=== PATIENT | male | born 1950 | race Caucasian/White ===

== ENCOUNTER 2020-03-03 00:53 | Inpatient (IN) | payer OTHER, SELFPAY ==
[2020-03-03] VITALS (16 sets, daily range): BP systolic 109–164; BP diastolic 60–101; PULSE 95–140; RESP 18–26; TEMP 36.6–37.2; O2SAT 96–100; BMI 26.6; BMI 26.8
--- NOTE | 2020-03-03 01:05 | ECG_ITS ---
Test Reason : SOB Blood Pressure : / mmHG Vent. Rate : 133 BPM Atrial Rate : 150 BPM P-R Int : 000 ms QRS Dur : 098 ms QT Int : 330 ms P-R-T Axes : 000 024 007 degrees QTc Int : 491 ms Atrial fibrillation with rapid ventricular response PVCs vs aberrant conduction Low voltage QRS Abnormal ECG No previous ECGs available Referred By: Karissa Soto Electronically Signed By:MARTY RINALDI
--- NOTE | 2020-03-03 01:40 | XR_ITS ---
EXAMINATION: CHEST 1 VIEW CLINICAL INFORMATION: Shortness of breath. COMPARISON: None. TECHNIQUE: An AP view of the chest is provided. FINDINGS: The cardiac silhouette is at the upper limits of normal in size. The mediastinal and hilar contours are unremarkable. There are no pneumothoraces. There are small bilateral pleural effusions with bibasilar airspace disease. The osseous structures are unremarkable. XR/XR chest 1V IMPRESSION: Small bilateral pleural effusions with bibasilar airspace disease.
--- NOTE | 2020-03-03 01:40 | ECG_ITS ---
Test Reason : REPEAT Blood Pressure : / mmHG Vent. Rate : 126 BPM Atrial Rate : 138 BPM P-R Int : 000 ms QRS Dur : 096 ms QT Int : 296 ms P-R-T Axes : 000 032 020 degrees QTc Int : 428 ms Atrial fibrillation with rapid ventricular response with premature ventricular or aberrantly conducted complexes Low voltage QRS Nonspecific ST abnormality Abnormal ECG When compared with ECG of 03-MAR-2020 01:05, No significant changes seen Referred By: Karissa Soto Electronically Signed By:JORGE AWAD MD
[2020-03-03 02:03] LABS: Basophils Absolute Auto 0.1 X10*3/uL (0.0-0.2); Basophils Percent Auto 0.5 % (0-2); Eosinophils Absolute Auto 0.1 X10*3/uL (0.0-0.4); Hematocrit 31.7 % (42-52); Hemoglobin 9.6 g/dl (14.0-18.0); Imm Gran Abs Auto 0.02 X10*3/uL (0.00-0.03); Imm Gran Pct Auto 0.2 % (0.0-0.4); Lymphocytes Absolute Auto 1.9 X10*3/uL (1.2-4.9); Lymphocytes Percent Auto 20.5 % (20-40); MANUAL DIFF FLAG NO; Mean Corpuscular HGB Conc 30.3 g/dl (31.0-36.0); Mean Corpuscular Hemoglobin 22.1 pg (27.0-33.0); Mean Corpuscular Volume 72.9 fL (80-98); Monocytes Absolute Auto 1.1 X10*3/uL (0.1-1.2); Neutrophils Absolute Auto 6.1 X10*3/uL (2.0-8.3); Neutrophils Percent Auto 65.8 % (45-73); Platelet Count 177 X10*3/uL (160-400); Red Blood Count 4.35 X10*6/uL (4.60-5.80); Red Cell Distribution Width 15.7 % (11.0-16.0); White Blood Count 9.3 X10*3/uL (4.8-10.8)
--- NOTE | 2020-03-03 02:08 | ED_ITS ---
HPI - SOB/Dyspnea General Chief Complaint: Upper Respiratory Symptoms Stated Complaint: SOB Time Seen by Provider: 03/03/20 00:58 Source: patient Mode of arrival: EMS History of Present Illness HPI Narrative: This is a 69-year-old male who states he has no significant past medical history and presents with 5-6 days worsening dyspnea on exertion, ?racing heart?, as well as orthopnea described as having to use additional pillows in order to sleep comfortably at night and states that his lower extremities have been increasing in size over the same time. He denies being on any medications and denies any associated shortness of breath, chest pain, GI symptoms, or symptoms. He does endorse that he drinks 5 beers daily and states that his last drinks were yesterday evening with dinner. He denies ever having withdrawal symptoms when he has attempted to abstain from drinking alcohol. Related Data Home Medications Medication Instructions Recorded Confirmed No Known Home Meds 03/03/20 03/03/20 Allergies Allergy/AdvReac Type Severity Reaction Status Date / Time Penicillins Allergy Unknown Verified 03/03/20 01:30 Review of Systems Review of Systems: Pertinent positives and negatives as stated in HPI and 10 point review of systems is otherwise negative. [facility] Past Medical History Source: nursing notes reviewed Medical History (Updated 03/03/20 @ 04:59 by Jaimie Sung MD) Hypertension Social History Social History Alcohol intake: current Alcohol intake frequency: 3 or more drinks per day Alcohol type: beer Smoking Status: Never smoker Smoked in Last 30 Days: No Use of substances other than those prescribed or required for medical reasons: No Advance Directives: No Advance Directives Information Provided: No Physical Exam Vital Signs: Vital Signs: Last Vital Signs Temp 98.0 F 03/03/20 03:56 Pulse 105 H 03/03/20 06:00 Resp 22 H 03/03/20 06:00 BP 144/85 H 03/03/20 06:00 Pulse Ox 98 03/03/20 06:00 Body Mass Index 26.6 VITAL SIGNS: Reviewed. GENERAL: Well developed, well nourished, mild distress. HEAD: Normocephalic/atraumatic, EYES: PERRLA, EOMI intact without pain, no nystagmus/pallor/icterus noted EARS: Ext canals without abnormality, TMs non-bulging and non-erythematous NOSE: Nares patent bilateral OROPHARYNX: no oral lesions noted, posterior pharynx clear and non-erythematous without noted tonsillar enlargement/erythema/exudates NECK: Supple, no adenopathy LUNGS: Decrease breath sounds bilaterally with mild rales noted but no wheezing or tachypnea appreciated.SpO2<99> CARDIOVASCULAR: Irregular rate and rhythm without noted murmurs, no JVD but 1- 2+ pitting lower extremity edema bilateral. ABDOMEN: Obese, Soft, non-tender, non-distended with bowel sounds. No rigidity. No guarding. No palpable masses or hernias noted MUSCULOSKELETAL: No tenderness, deformities, or effusions noted on gross inspection. EXTREMITIES: No cyanosis, clubbing. SKIN: Inspection of the skin reveals no rashes, ulcerations, jaundice, pallor, or petechiae. NEUROLOGIC: Alert and oriented x 4. Strength and sensation to light touch were grossly intact x 4. Course Course Course Narrative: This is a 69-year-old male with history and clinical presentation consistent with suspected new onset atrial fibrillation with CHF of unknown etiology but possibly secondary to alcohol use. Chads Vasc equals 2 -labs, chest x-ray, EKG, Lopressor, Lasix, admission Review of all investigations is most consistent with atrial fibrillation, CHF who, and D-dimer is inconsistent with lower extremity edema being secondary to DVT. Patient responded well to Lasix and Lopressor with heart rate decreasing to 100s. This case was discussed with the inpatient hospitalist who is agreeable for admission and was informed that patient's chads Vasc score was 2. MDM - SOB/Dyspnea Lab Data Result diagrams: 03/03/20 01:54 03/03/20 01:55 Labs: Lab Results 03/03/20 03/03/20 03/03/20 Range/Units 01:54 01:54 01:54 WBC 9.3 (4.8-10.8) X10*3/uL RBC 4.35 L (4.60-5.80) X10*6/uL Hgb 9.6 L (14.0-18.0) g/dl Hct 31.7 L (42-52) % MCV 72.9 L (80-98) fL MCH 22.1 L (27.0-33.0) pg MCHC 30.3 L (31.0-36.0) g/dl RDW 15.7 (11.0-16.0) % Plt Count 177 (160-400) X10*3/uL MPV 10.0 (9.4-12.4) fL Immature Gran % (Auto) 0.2 (0.0-0.4) % Neut % (Auto) 65.8 (45-73) % Lymph % (Auto) 20.5 (20-40) % [place] % (Auto) 12.0 H (2-11) % Eos % (Auto) 1.0 (0-4) % Baso % (Auto) 0.5 (0-2) % Lymph # (Auto) 1.9 (1.2-4.9) X10*3/uL [place] # (Auto) 1.1 (0.1-1.2) X10*3/uL Eos # (Auto) 0.1 (0.0-0.4) X10*3/uL Baso # (Auto) 0.1 (0.0-0.2) X10*3/uL Abs Immat Gran (auto) 0.02 (0.00-0.03) X10*3/uL Absolute Neuts (auto) 6.1 (2.0-8.3) X10*3/uL Absolute Nucleated RBC 0.000 (0.0-0.012) X10*3/uL Nucleated RBC % (auto) 0.0 (0.0-0.2) /100WBC D-Dimer NG/ML Sodium (135-145) mmol/L Potassium (3.3-5.1) mmol/l Chloride (96-108) mmol/L Carbon Dioxide (22-29) mmol/L Anion Gap (12-20) BUN (9-16) mg/dL Creatinine (0.5-1.4) mg/dL Estim Creat Clear Calc Estimated GFR Random Glucose (60-115) mg/dL Calcium (8.4-10.2) mg/dL Total Bilirubin (0.0-1.0) mg/dL AST (5-37) U/L ALT (0-40) U/L Alkaline Phosphatase (39-117) U/L Troponin I High Sens 25.6 (<3.5-35.0) ng/L B-Natriuretic Peptide 972 H (<100) pg/mL Total Protein (6.5-8.0) g/dL Albumin (3.5-5.0) g/dL Lipase (8-78) U/L Urine Color Urine Appearance Urine pH (5.0-8.0) Ur Specific [place] (1.005-1.025) Urine Protein (NEG-TRACE) MG/DL Urine Glucose (UA) (NEG) MG/DL Urine Ketones (NEG) MG/DL Urine Blood (NEG) Urine Nitrite (NEG) Ur Leukocyte Esterase (NEG) Urine Opiates Screen (Not Detect) Ur Barbiturates Screen (Not Detect) Ur Phencyclidine Scrn (Not Detect) Ur Amphetamines Screen (Not Detect) U Benzodiazepines Scrn (Not Detect) Urine Cocaine Screen (Not Detect) U Marijuana (THC) Screen (Not Detect) Ethyl Alcohol < 10 mg/dL Coronavirus (PCR) (Negative) Influenza Type A (PCR) (Negative) Influenza Type B (PCR) (Negative) RSV RNA Qual (PCR) (Negative) 03/03/20 03/03/20 03/03/20 Range/Units 01:55 03:23 03:28 WBC (4.8-10.8) X10*3/uL RBC (4.60-5.80) X10*6/uL Hgb (14.0-18.0) g/dl Hct (42-52) % MCV (80-98) fL MCH (27.0-33.0) pg MCHC (31.0-36.0) g/dl RDW (11.0-16.0) % Plt Count (160-400) X10*3/uL MPV (9.4-12.4) fL Immature Gran % (Auto) (0.0-0.4) % Neut % (Auto) (45-73) % Lymph % (Auto) (20-40) % [place] % (Auto) (2-11) % Eos % (Auto) (0-4) % Baso % (Auto) (0-2) % Lymph # (Auto) (1.2-4.9) X10*3/uL [place] # (Auto) (0.1-1.2) X10*3/uL Eos # (Auto) (0.0-0.4) X10*3/uL Baso # (Auto) (0.0-0.2) X10*3/uL Abs Immat Gran (auto) (0.00-0.03) X10*3/uL Absolute Neuts (auto) (2.0-8.3) X10*3/uL Absolute Nucleated RBC (0.0-0.012) X10*3/uL Nucleated RBC % (auto) (0.0-0.2) /100WBC D-Dimer 284 NG/ML Sodium 134 L (135-145) mmol/L Potassium 4.3 (3.3-5.1) mmol/l Chloride 99 (96-108) mmol/L Carbon Dioxide 22 (22-29) mmol/L Anion Gap 17 (12-20) BUN 18 H (9-16) mg/dL Creatinine 1.09 (0.5-1.4) mg/dL Estim Creat Clear Calc 61.8 Estimated GFR > 60 Random Glucose 90 (60-115) mg/dL Calcium 8.5 (8.4-10.2) mg/dL Total Bilirubin 1.1 H (0.0-1.0) mg/dL AST 29 (5-37) U/L ALT 38 (0-40) U/L Alkaline Phosphatase 61 (39-117) U/L Troponin I High Sens (<3.5-35.0) ng/L B-Natriuretic Peptide (<100) pg/mL Total Protein 7.4 (6.5-8.0) g/dL Albumin 3.9 (3.5-5.0) g/dL Lipase 31 (8-78) U/L Urine Color Urine Appearance Urine pH (5.0-8.0) Ur Specific [place] (1.005-1.025) Urine Protein (NEG-TRACE) MG/DL Urine Glucose (UA) (NEG) MG/DL Urine Ketones (NEG) MG/DL Urine Blood (NEG) Urine Nitrite (NEG) Ur Leukocyte Esterase (NEG) Urine Opiates Screen (Not Detect) Ur Barbiturates Screen (Not Detect) Ur Phencyclidine Scrn (Not Detect) Ur Amphetamines Screen (Not Detect) U Benzodiazepines Scrn (Not Detect) Urine Cocaine Screen (Not Detect) U Marijuana (THC) Screen (Not Detect) Ethyl Alcohol mg/dL Coronavirus (PCR) NEGATIVE (Negative) Influenza Type A (PCR) NEGATIVE (Negative) Influenza Type B (PCR) NEGATIVE (Negative) RSV RNA Qual (PCR) NEGATIVE (Negative) 03/03/20 03/03/20 03/03/20 Range/Units 03:59 03:59 06:37 WBC (4.8-10.8) X10*3/uL RBC (4.60-5.80) X10*6/uL Hgb (14.0-18.0) g/dl Hct (42-52) % MCV (80-98) fL MCH (27.0-33.0) pg MCHC (31.0-36.0) g/dl RDW (11.0-16.0) % Plt Count (160-400) X10*3/uL MPV (9.4-12.4) fL Immature Gran % (Auto) (0.0-0.4) % Neut % (Auto) (45-73) % Lymph % (Auto) (20-40) % [place] % (Auto) (2-11) % Eos % (Auto) (0-4) % Baso % (Auto) (0-2) % Lymph # (Auto) (1.2-4.9) X10*3/uL [place] # (Auto) (0.1-1.2) X10*3/uL Eos # (Auto) (0.0-0.4) X10*3/uL Baso # (Auto) (0.0-0.2) X10*3/uL Abs Immat Gran (auto) (0.00-0.03) X10*3/uL Absolute Neuts (auto) (2.0-8.3) X10*3/uL Absolute Nucleated RBC (0.0-0.012) X10*3/uL Nucleated RBC % (auto) (0.0-0.2) /100WBC D-Dimer NG/ML Sodium (135-145) mmol/L Potassium (3.3-5.1) mmol/l Chloride (96-108) mmol/L Carbon Dioxide (22-29) mmol/L Anion Gap (12-20) BUN (9-16) mg/dL Creatinine (0.5-1.4) mg/dL Estim Creat Clear Calc Estimated GFR Random Glucose (60-115) mg/dL Calcium (8.4-10.2) mg/dL Total Bilirubin (0.0-1.0) mg/dL AST (5-37) U/L ALT (0-40) U/L Alkaline Phosphatase (39-117) U/L Troponin I High Sens 21.8 (<3.5-35.0) ng/L B-Natriuretic Peptide (<100) pg/mL Total Protein (6.5-8.0) g/dL Albumin (3.5-5.0) g/dL Lipase (8-78) U/L Urine Color YELLOW Urine Appearance CLEAR Urine pH 6.0 (5.0-8.0) Ur Specific [place] 1.020 (1.005-1.025) Urine Protein NEG (NEG-TRACE) MG/DL Urine Glucose (UA) NEG (NEG) MG/DL Urine Ketones NEG (NEG) MG/DL Urine Blood NEG (NEG) Urine Nitrite NEG (NEG) Ur Leukocyte Esterase NEG (NEG) Urine Opiates Screen Not Detected (Not Detect) Ur Barbiturates Screen Not Detected (Not Detect) Ur Phencyclidine Scrn Not Detected (Not Detect) Ur Amphetamines Screen Not Detected (Not Detect) U Benzodiazepines Scrn Not Detected (Not Detect) Urine Cocaine Screen Not Detected (Not Detect) U Marijuana (THC) Screen Not Detected (Not Detect) Ethyl Alcohol mg/dL Coronavirus (PCR) (Negative) Influenza Type A (PCR) (Negative) Influenza Type B (PCR) (Negative) RSV RNA Qual (PCR) (Negative) ECG Data Attestation: I personally reviewed and interpreted this ECG as follows: Prior ECG tracings: not available for review Interpretation: Atrial fibrillation, HR-126, no evidence of acute ischemia, QRS/QTC are within normal limits. Critical Care Time Critical Care Time Critical Care Time: Yes Total Critical Care Time: 30 Attestation: I personally attest to this time spent taking care of the patient. Discharge Plan Discharge Clinical Impression: Pleural effusion, bilateral Atrial fibrillation Qualifiers: Atrial fibrillation type: unspecified Qualified Code(s): I48.91 - Unspecified atrial fibrillation CHF (congestive heart failure) Qualifiers: Heart failure type: other Qualified Code(s): I50.9 - Heart failure, unspecified Patient Disposition: Admitted As Inpatient
[2020-03-03 02:22] LABS: Ethanol < 10 mg/dL
[2020-03-03 02:26] LABS: Alanine Aminotransferase 38 U/L (0-40); Albumin Level 3.9 g/dL (3.5-5.0); Alkaline Phosphatase 61 U/L (39-117); Anion Gap 17 (12-20); Aspartate Amino Transferase 29 U/L (5-37); Bilirubin Total 1.1 mg/dL (0.0-1.0); Blood Urea Nitrogen 18 mg/dL (9-16); Calcium 8.5 mg/dL (8.4-10.2); Carbon Dioxide 22 mmol/L (22-29); Chloride 99 mmol/L (96-108); Creatinine Clr Calc Pharmacy 61.8; Estimated Glomerular Filt Rate > 60; Glucose Random 90 mg/dL (60-115); Lipase 31 U/L (8-78); Potassium 4.3 mmol/l (3.3-5.1); Sodium 134 mmol/L (135-145); Total Protein 7.4 g/dL (6.5-8.0)
[2020-03-03 02:29] LABS: Troponin-I High Sensitivity 25.6 ng/L (<3.5-35.0)
[2020-03-03 02:50] LABS: B Type Natriuretic Peptide 972 pg/mL (<100)
[2020-03-03] MEDS: Furosemide 40 MG/4 ML VIAL IVPUSH ×2 (03:11→15:41)
[2020-03-03 03:43] LABS: D Dimer 284 NG/ML
[2020-03-03] MEDS: Metoprolol Tartrate 5 MG/5 ML VIAL IVPUSH (04:00)
[2020-03-03 04:05] LABS: Glucose Urine UA NEG (NEG); Leukocyte Esterase Urine NEG (NEG); Nitrite Urine NEG (NEG); Urine Blood NEG (NEG); Urine Ketones NEG (NEG); Urine Protein NEG (NEG-TRACE)
[2020-03-03 04:06] LABS: Appearance Urine CLEAR; Color Urine YELLOW; UACC Culture Trigger NO
[2020-03-03 04:26] LABS: Amphetamine Screen Urine Not Detected (Not Detect); Barbiturates, Urine Not Detected (Not Detect); Benzodiazepines Screen Urine Not Detected (Not Detect); Cannabinoid Screen Urine Not Detected (Not Detect); Cocaine Screen Urine Not Detected (Not Detect); Opiate Screen Urine Not Detected (Not Detect); Phencyclidine Screen Urine Not Detected (Not Detect)
[2020-03-03 04:27] LABS: Influenza A PCR NEGATIVE (Negative); Influenza B PCR NEGATIVE (Negative); Resp Syncy Virus RNA Qual PCR NEGATIVE (Negative); SARS COV2 PCR INHOUSE NEGATIVE (Negative)
--- NOTE | 2020-03-03 04:51 | P.HPHOSP_ITS ---
History of Present Illness Date of Service: 03/03/20 Chief Complaint: Shortness of breath This is a 69-year-old male with history of hypertension who presents to the hospital complaining new as onset shortness of breath. Patient reports that his symptoms started about 1 week ago, associated with orthopnea, PND, lower extremity edema. He is also having palpitations. He has no chest pain, he has not noticed any cough, sputum production, no fever or chills, no abdominal pain nausea or diarrhea. No urinary symptoms. On arrival to the ED hemodynamically stable with a heart rate of 140 in AFib, blood pressure of 164/101, and respiratory rate of 26 Lab significant for WBC count 9.3, hemoglobin 9.6, hematocrit of 31.7, sodium 134, BUN of 18, creatinine of 1.09, BNP of 972. UA negative. UDS negative, coronavirus negative. Chest x-ray shows bilateral effusion with bibasilar airspace disease Past medical history: Hypertension Surgical history: Denies Family history: Denies Social history: Lives with his mom, ambulates independently, denies tobacco, drinks 4-5 beers daily, denies any history of withdrawal, no history of drug use Review of Systems Review of Systems: Yes all other systems are reviewed and are negative [facility] History Hypertension Social History Alcohol intake: current Alcohol intake frequency: 3 or more drinks per day Alcohol type: beer Smoking Status: Never smoker Smoked in Last 30 Days: No Use of substances other than those prescribed or required for medical reasons: No Advance Directives: No Advance Directives Information Provided: No Meds Allergies Allergy/AdvReac Type Severity Reaction Status Date / Time Penicillins Allergy Unknown Verified 03/03/20 01:30 Home Medications Medication Instructions Recorded Confirmed Type No Known Home Meds 03/03/20 03/03/20 History Physical Exam Vital Signs and Narrative: Vital Signs: Last Vital Signs Temp 98.0 F 03/03/20 03:56 Pulse 125 H 03/03/20 03:56 Resp 20 03/03/20 03:56 BP 156/95 H 03/03/20 03:56 Pulse Ox 98 03/03/20 03:56 Body Mass Index 26.6 Const: General: cooperative and no acute distress Orientation/consciousness: patient oriented x3 Eyes: General: appearance normal, both eyes and all related structures Resp: Effort & Inspection: normal respiratory effort and able to speak in complete sentences Cardio: Rate: regular rate Rhythm: regular rhythm GI: Palpation (GI): Soft to palpation Auscultation: normal bowel sounds Skin: General skin exam: no rashes or lesions noted Neuro: General: patient oriented x3 Cognition (Neuro): normal cognition Extrem: Other: 2+ bilaterally General: Yes normal to inspection Results Labs CBC and Chem 7: 03/03/20 01:54 03/03/20 01:55 Labs: Laboratory Results - last 24 hr 03/03/20 03/03/20 03/03/20 01:54 01:54 01:54 MCV 72.9 L MCH 22.1 L MCHC 30.3 L RDW 15.7 Plt Count 177 MPV 10.0 Immature Gran % (Auto) 0.2 Neut % (Auto) 65.8 Lymph % (Auto) 20.5 [place] % (Auto) 12.0 H Eos % (Auto) 1.0 Baso % (Auto) 0.5 Lymph # (Auto) 1.9 [place] # (Auto) 1.1 Eos # (Auto) 0.1 Baso # (Auto) 0.1 Abs Immat Gran (auto) 0.02 Absolute Neuts (auto) 6.1 Absolute Nucleated RBC 0.000 Nucleated RBC % (auto) 0.0 D-Dimer Anion Gap Estim Creat Clear Calc Estimated GFR Random Glucose Calcium Total Bilirubin AST ALT Alkaline Phosphatase Troponin I High Sens 25.6 B-Natriuretic Peptide 972 H Total Protein Albumin Lipase Urine Color Urine Appearance Urine pH Ur Specific [place] Urine Protein Urine Glucose (UA) Urine Ketones Urine Blood Urine Nitrite Ur Leukocyte Esterase Urine Opiates Screen Ur Barbiturates Screen Ur Phencyclidine Scrn Ur Amphetamines Screen U Benzodiazepines Scrn Urine Cocaine Screen U Marijuana (THC) Screen Ethyl Alcohol < 10 Coronavirus (PCR) Influenza Type A (PCR) Influenza Type B (PCR) RSV RNA Qual (PCR) 03/03/20 03/03/20 03/03/20 01:55 03:23 03:28 MCV MCH MCHC RDW Plt Count MPV Immature Gran % (Auto) Neut % (Auto) Lymph % (Auto) [place] % (Auto) Eos % (Auto) Baso % (Auto) Lymph # (Auto) [place] # (Auto) Eos # (Auto) Baso # (Auto) Abs Immat Gran (auto) Absolute Neuts (auto) Absolute Nucleated RBC Nucleated RBC % (auto) D-Dimer 284 Anion Gap 17 Estim Creat Clear Calc 61.8 Estimated GFR > 60 Random Glucose 90 Calcium 8.5 Total Bilirubin 1.1 H AST 29 ALT 38 Alkaline Phosphatase 61 Troponin I High Sens B-Natriuretic Peptide Total Protein 7.4 Albumin 3.9 Lipase 31 Urine Color Urine Appearance Urine pH Ur Specific [place] Urine Protein Urine Glucose (UA) Urine Ketones Urine Blood Urine Nitrite Ur Leukocyte Esterase Urine Opiates Screen Ur Barbiturates Screen Ur Phencyclidine Scrn Ur Amphetamines Screen U Benzodiazepines Scrn Urine Cocaine Screen U Marijuana (THC) Screen Ethyl Alcohol Coronavirus (PCR) NEGATIVE Influenza Type A (PCR) NEGATIVE Influenza Type B (PCR) NEGATIVE RSV RNA Qual (PCR) NEGATIVE 03/03/20 03/03/20 03:59 03:59 MCV MCH MCHC RDW Plt Count MPV Immature Gran % (Auto) Neut % (Auto) Lymph % (Auto) [place] % (Auto) Eos % (Auto) Baso % (Auto) Lymph # (Auto) [place] # (Auto) Eos # (Auto) Baso # (Auto) Abs Immat Gran (auto) Absolute Neuts (auto) Absolute Nucleated RBC Nucleated RBC % (auto) D-Dimer Anion Gap Estim Creat Clear Calc Estimated GFR Random Glucose Calcium Total Bilirubin AST ALT Alkaline Phosphatase Troponin I High Sens B-Natriuretic Peptide Total Protein Albumin Lipase Urine Color YELLOW Urine Appearance CLEAR Urine pH 6.0 Ur Specific [place] 1.020 Urine Protein NEG Urine Glucose (UA) NEG Urine Ketones NEG Urine Blood NEG Urine Nitrite NEG Ur Leukocyte Esterase NEG Urine Opiates Screen Not Detected Ur Barbiturates Screen Not Detected Ur Phencyclidine Scrn Not Detected Ur Amphetamines Screen Not Detected U Benzodiazepines Scrn Not Detected Urine Cocaine Screen Not Detected U Marijuana (THC) Screen Not Detected Ethyl Alcohol Coronavirus (PCR) Influenza Type A (PCR) Influenza Type B (PCR) RSV RNA Qual (PCR) ECG Interpretation: AFib with RVR, nonspecific ST T wave changes Imaging Radiologist's Impressions: Impressions Chest X-Ray 03/03/20 01:40 IMPRESSION: Small bilateral pleural effusions with bibasilar airspace disease. Assessment and Plan (1) New onset of congestive heart failure: Status: Acute (2) Atrial fibrillation: Qualifiers: Atrial fibrillation type: unspecified Qualified Code(s): I48.91 - Unspecified atrial fibrillation Status: Acute (3) Hypertension: Status: Acute (4) Alcohol use disorder: Status: Acute This is a 69-year-old male with past medical history of hypertension who p resents to the hospital with new onset AFib as well as CHF # new onset CHF - possibly secondary to alcohol use versus ischemic - patient denies history of chest pain, has history of hypertension with no other significant risk factors - has lower extremity edema, orthopnea PND Plan: - will start him on Lasix 40 IV b.i.d. - monitor I&O, low-sodium diet, daily weight - echocardiogram - TSH, and consult Cardiology # new onset AFib with RVR - possibly secondary to new onset CHF, has no evidence of infection - has chads Vasc of 2 - discuss patient's risk of stroke and he is interested in anticoagulation Plan: - start him on metoprolol 12.5 b.i.d. - given his Tee Vasc score of 2 will start him on Lovenox and switch to p.o. meds upon discharge - TSH and troponin pending - echocardiogram # alcohol abuse - drinks 4-5 beers a day, denies any history of withdrawals - will place on CIWA as well as phenobarb protocol DVT prophylaxis: Lovenox
[2020-03-03] MEDS: PHENobarbitaL sodium 130 MG/ML VIAL 219 MG IM (06:02)
[2020-03-03] MEDS: Enoxaparin Sodium 60 MG/0.6 ML SYRINGE 80 MG SUBCUT ×2 (06:13→17:47)
[2020-03-03 07:23] LABS: Troponin-I High Sensitivity 21.8 ng/L (<3.5-35.0)
[2020-03-03] MEDS: PHENobarbitaL sodium 130 MG/ML VIAL 164 MG IM ×2 (08:40→12:01)
[2020-03-03] MEDS: Metoprolol Tartrate 12.5 MG HALFTAB PO (08:41)
--- NOTE | 2020-03-03 09:55 | CA_ITS ---
Transthoracic Echocardiogram Patient (Last, First, Middle): Ambrocio Askew, Gender: Male Date of : 1950 Age: 69 Procedure Date: 03/03/2020 Procedure Type: Transthoracic Echocardiogram Location: ER Height: 172.72 cm Weight: 79.04 kg BSA: 1.93 m2 Heart Rate: bpm BP: 129 / 89 mmHg Motor Vehicle Examiner: DREA Foley MD: Francisco Corral MD Air Quality Specialist: Francisco Corral MD Symptoms: CHF Study Quality: Fair ECG Rhythm: Atrial Fibrillation Conclusions: - 1. Severe LV systolic dysfunction with LVEF of 20-25% 2. Severely dilated left atrium 3. Moderate to severe eccentric mitral regurgitation 4. [id number] elevation of right ventricular systolic pressure with moderately elevated right atrial pressures 5. No pericardial effusion Findings Left Ventricle Normal left ventricular cavity size. There is normal left ventricular wall thickness. The left ventricular systolic function is severely decreased. The visually estimated ejection fraction is between 20-25%. There is severe global hypokinesis. Diastolic function is indeterminate on the basis of available data. Right Ventricle Mildly increased right ventricular cavity size. There is mildly decreased right ventricular systolic function. Atria The left atrium is severely dilated. There is no evidence of interatrial shunt. The right atrium is moderately dilated. Aortic Valve Normal aortic valve structure and function. There is no aortic valve stenosis. There is no aortic valve regurgitation. Mitral Valve There is moderate anterior and posterior mitral leaflet thickening. There is moderate to severe mitral valve regurgitation. The mitral regurgitation jet is directed anteriorly. There is no mitral valve stenosis. Pulmonic Valve The pulmonic valve is likely normal. There is mild pulmonic valve regurgitation. Tricuspid Valve Normal tricuspid valve structure. There is mild to moderate tricuspid valve regurgitation. Moderately elevated right atrial pressure. Mild to moderate pulmonary hypertension is present. Great Vessels All visible segments of the aorta are normal in size. The pulmonary artery was not well visualized. Venous The inferior vena cava is mildly dilated and collapses less than 50% with inspiration. Pericardium/Pleural There is no evidence of pericardial effusion. Prior Study Comparison No prior study available for comparison. Measurements 2D Linear Measurements IVSd: 1.05 0.6-0.9/0.6-1.0 cm LVIDd: 4.69 3.9-5.3/4.2-5.9 cm LVIDd Index: 2.43 2.4-3.2/2.2-3.1 cm/m2 LVIDs: 4.38 2.0-3.6 cm LVPWd: 1.07 0.7-1.1 cm Ao Root: 3.00 2.1-3.5 cm LA Diam: 4.60 2.7-3.8/3.0-4.0 cm LAIDs Index: 2.38 1.5-2.3 cm/m2 LV Mass: 221.17 67-162/88-224 g LV Mass Index: 114.59 43-95/49-115 g/m2 LVOT Diam: 2.10 3.0+(-)1.3 cm 2D Systolic Function EF 4C: 29.10 >55% EF 2C: 32.60 >55% Aortic Valve AoV Pk Willie: 0.67 AoV Mn Willie: 0.44 AoV VTI: 0.09 AoV Pk Grad: 2.00 Aov Mn Grad: 1.00 CED Cont.VTI: 3.95 LVOT LVOT Pk Willie: 0.58 LVOT Mn Willie: 0.36 LVOT VTI: 0.10 LVOT Pk Grad: 1.00 LVOT Mn Grad: 1.00 LVOT Diam: 2.10 LVOT Area: 3.46 Tricuspid Valve TR Pk Willie: 2.94 TR Pk Grad: 35.00 RA Press: 8.00 RVSP: 43.00 Great Vessels Aorta Ao Root-2D: 3.00 2.0-3.7 cm Ao Asc: 3.20 2.1-3.4 cm Updated in Other Vendor System with Status of Final Francisco Corral MD electronically signed on 03/04/2020 12:24:58 PM with status of Final
--- NOTE | 2020-03-03 11:23 | PM.CNCAR ---
History of Present Illness History of Present Illness Date of Service: 03/03/20 Requesting physician: Ladarius Gutiérrez Consult reason: atrial fibrillation and congestive heart failure Chief complaint: SOB Narrative: Thank you for inviting us on consult on Ambrocio.. He is a 69-year-old man was not seen a doctor in the last 5 years as he was feeling well. About 7 days ago he started noticing rapid and irregular heartbeat with palpitations. He also about at the same time started noticing exertional shortness of breath which kept getting worse. Last night he shortness of get caught significantly worse and he decided to come to the emergency room. Continues to have palpitations. He also had notice some orthopnea and had a leg edema. He came to the emergency room and was noted to be in atrial fibrillation with rapid ventricular response and congestive heart failure. Heart rate was in the 150 range with markedly elevated blood pressure. He denies any prior history of hypertension. However he as mentioned he has not seen a MD in many years. He says he drinks about 5-6 beers a day. He denies any smoking. He denied any chest pain. Denies any lightheadedness, loss of consciousness. No neurologic events. He denies any recent systemic symptoms of bleeding issues. He says prior to the symptom onset he is pretty functional and active. Review of Systems Constitutional: Constitutional: Denies body ache(s), Denies chills, Denies fatigue, Denies fever(s) and Denies frequent falls Eyes: Eyes: Reports no additional eye complaints ENT: Reports system reviewed and no additional complaints, except as documented Cardiovascular: Cardiovascular: Denies chest pain, Reports irregular heart rhythm, Reports leg edema, Reports palpitations, Reports dyspnea on exertion and Reports orthopnea Respiratory: Respiratory: Denies cough and Reports dyspnea on exertion Gastrointestinal: Gastrointestinal: Reports no additional gastrointestinal complaints Genitourinary: Genitourinary: Reports no additional male genitourinary complaints Musculoskeletal: Musculoskeletal: Reports no additional musculoskeletal complaints Neurologic: Reports system reviewed and no additional complaints, except as documented and Denies frequent falls Psychiatric: Psychiatric: Reports no additional psychiatric complaints Endocrine: Endocrine: Reports no additional endocrine complaints, Denies fatigue and Reports palpitations PMF Past Medical History Medical History Hypertension Social History Social History Alcohol intake: current Alcohol intake frequency: 3 or more drinks per day Alcohol type: beer Smoking Status: Never smoker Smoked in Last 30 Days: No Use of substances other than those prescribed or required for medical reasons: No Advance Directives: No Advance Directives Information Provided: No Meds Allergies Allergy/AdvReac Type Severity Reaction Status Date / Time Penicillins Allergy Unknown Verified 03/03/20 01:30 Home Medications Medication Instructions Recorded Confirmed Type No Known Home Meds 03/03/20 03/03/20 History Physical Exam Vital Signs: Vital Signs: Last Vital Signs Temp 98.0 F 03/03/20 03:56 Pulse 120 H 03/03/20 08:41 Resp 22 H 03/03/20 06:00 BP 123/86 03/03/20 08:41 Pulse Ox 98 03/03/20 06:00 Body Mass Index 26.6 Const: General: cooperative, comfortable, alert, awake and acute distress mild and respiratory Nutritional Appearance: overweight Orientation/consciousness: patient oriented x3 Limitations: other limitations (Currently in a stretcher) HENMT: Head: Yes normocephalic Eyes: General: appearance normal, both eyes and all related structures Neck: Neck: Yes trachea midline, Yes supple and Yes JVD Chest: Chest palpation & inspection: normal inspection of the chest Resp: Effort & Inspection: normal respiratory effort Auscultation: no crackles, no rales and diminished lung sounds Cardio: Jugular venous distension: JVD Palpation: abnormal PMI displaced PMI Rate: tachycardic Rhythm: abnormal rhythm irregularly irregular Heart sounds: S1 normal heart sound present and S2 normal heart sound present GI: Auscultation: normal bowel sounds Skin: General skin exam: no rashes or lesions noted Neuro: General: patient oriented x3 Extrem: General: No clubbing, No cyanosis and Yes edema Psych: Appearance: grossly normal Results Labs and Meds Result diagrams: 03/03/20 01:54 03/03/20 01:55 Lab results: Laboratory Results - last 24 hr 03/03/20 03/03/20 03/03/20 01:54 01:54 01:54 WBC 9.3 RBC 4.35 L Hgb 9.6 L Hct 31.7 L MCV 72.9 L MCH 22.1 L MCHC 30.3 L RDW 15.7 Plt Count 177 MPV 10.0 Immature Gran % (Auto) 0.2 Neut % (Auto) 65.8 Lymph % (Auto) 20.5 [place] % (Auto) 12.0 H Eos % (Auto) 1.0 Baso % (Auto) 0.5 Lymph # (Auto) 1.9 [place] # (Auto) 1.1 Eos # (Auto) 0.1 Baso # (Auto) 0.1 Abs Immat Gran (auto) 0.02 Absolute Neuts (auto) 6.1 Absolute Nucleated RBC 0.000 Nucleated RBC % (auto) 0.0 D-Dimer Sodium Potassium Chloride Carbon Dioxide Anion Gap BUN Creatinine Estim Creat Clear Calc Estimated GFR Random Glucose Calcium Total Bilirubin AST ALT Alkaline Phosphatase Troponin I High Sens 25.6 B-Natriuretic Peptide 972 H Total Protein Albumin Lipase Urine Color Urine Appearance Urine pH Ur Specific [place] Urine Protein Urine Glucose (UA) Urine Ketones Urine Blood Urine Nitrite Ur Leukocyte Esterase Urine Opiates Screen Ur Barbiturates Screen Ur Phencyclidine Scrn Ur Amphetamines Screen U Benzodiazepines Scrn Urine Cocaine Screen U Marijuana (THC) Screen Ethyl Alcohol < 10 Coronavirus (PCR) Influenza Type A (PCR) Influenza Type B (PCR) RSV RNA Qual (PCR) 03/03/20 03/03/20 03/03/20 01:55 03:23 03:28 WBC RBC Hgb Hct MCV MCH MCHC RDW Plt Count MPV Immature Gran % (Auto) Neut % (Auto) Lymph % (Auto) [place] % (Auto) Eos % (Auto) Baso % (Auto) Lymph # (Auto) [place] # (Auto) Eos # (Auto) Baso # (Auto) Abs Immat Gran (auto) Absolute Neuts (auto) Absolute Nucleated RBC Nucleated RBC % (auto) D-Dimer 284 Sodium 134 L Potassium 4.3 Chloride 99 Carbon Dioxide 22 Anion Gap 17 BUN 18 H Creatinine 1.09 Estim Creat Clear Calc 61.8 Estimated GFR > 60 Random Glucose 90 Calcium 8.5 Total Bilirubin 1.1 H AST 29 ALT 38 Alkaline Phosphatase 61 Troponin I High Sens B-Natriuretic Peptide Total Protein 7.4 Albumin 3.9 Lipase 31 Urine Color Urine Appearance Urine pH Ur Specific [place] Urine Protein Urine Glucose (UA) Urine Ketones Urine Blood Urine Nitrite Ur Leukocyte Esterase Urine Opiates Screen Ur Barbiturates Screen Ur Phencyclidine Scrn Ur Amphetamines Screen U Benzodiazepines Scrn Urine Cocaine Screen U Marijuana (THC) Screen Ethyl Alcohol Coronavirus (PCR) NEGATIVE Influenza Type A (PCR) NEGATIVE Influenza Type B (PCR) NEGATIVE RSV RNA Qual (PCR) NEGATIVE 03/03/20 03/03/20 03/03/20 03:59 03:59 06:37 WBC RBC Hgb Hct MCV MCH MCHC RDW Plt Count MPV Immature Gran % (Auto) Neut % (Auto) Lymph % (Auto) [place] % (Auto) Eos % (Auto) Baso % (Auto) Lymph # (Auto) [place] # (Auto) Eos # (Auto) Baso # (Auto) Abs Immat Gran (auto) Absolute Neuts (auto) Absolute Nucleated RBC Nucleated RBC % (auto) D-Dimer Sodium Potassium Chloride Carbon Dioxide Anion Gap BUN Creatinine Estim Creat Clear Calc Estimated GFR Random Glucose Calcium Total Bilirubin AST ALT Alkaline Phosphatase Troponin I High Sens 21.8 B-Natriuretic Peptide Total Protein Albumin Lipase Urine Color YELLOW Urine Appearance CLEAR Urine pH 6.0 Ur Specific [place] 1.020 Urine Protein NEG Urine Glucose (UA) NEG Urine Ketones NEG Urine Blood NEG Urine Nitrite NEG Ur Leukocyte Esterase NEG Urine Opiates Screen Not Detected Ur Barbiturates Screen Not Detected Ur Phencyclidine Scrn Not Detected Ur Amphetamines Screen Not Detected U Benzodiazepines Scrn Not Detected Urine Cocaine Screen Not Detected U Marijuana (THC) Screen Not Detected Ethyl Alcohol Coronavirus (PCR) Influenza Type A (PCR) Influenza Type B (PCR) RSV RNA Qual (PCR) CXR - suggestive of CHF EKG consistent with atrial fibrillation with PVCs with low-voltage card nonspecific ST T wave changes. BNP is 972 Assessment and Plan (1) CHF (congestive heart failure): Qualifiers: Heart failure type: other Qualified Code(s): I50.9 - Heart failure, unspecified Status: Acute New onset congestive heart failure with preliminary echo at bedside showing severely reduced LV systolic function. Possibilities include tachycardia mediated cardiomyopathy versus alcoholic cardiomyopathy. Will continue with diuresis. Better rate control needs to be pursued. Will digitalize, see below. Will also increase metoprolol. Continue Lasix IV diuresis. CHF education needs to be provided. Strict intake and output chart needs to be pursued. Daily weight monitoring needs to be pursued. Continue to trend BMP and BNP. Complete echo will be reviewed once completed. Heart failure management was discussed with him in details. Complete alcohol cessation was advised to him. (2) Atrial fibrillation: Qualifiers: Atrial fibrillation type: unspecified Qualified Code(s): I48.91 - Unspecified atrial fibrillation Status: Acute New onset atrial fibrillation which appears to be of recent onset. Aggressive rate control be pursued. Will digitalize with digoxin 0.25 mg IV q.6 x3 doses. Also increase metoprolol 25 mg q.6 hours. Start oral anticoagulation therapy with Xarelto 20 mg daily. Trend H&H. If remains difficult control are heart failure is difficult control may require MARK guided cardioversion to get rhythm control and improve heart failure management. Will continue to follow with the patient. Atrial fibrillation pathophysiology and management was discussed in details. Eventually require rhythm control approach. Complete alcohol cessation was advised. Will follow the patient thank you for allowing us to partake in his care
[2020-03-03] MEDS: Metoprolol Tartrate 25 MG TABLET PO ×2 (12:00→22:14)
[2020-03-03] MEDS: Digoxin 0.5 MG/2 ML AMPUL 0.25 MG IVPUSH ×3 (12:01→22:13)
--- NOTE | 2020-03-03 12:11 | PC.NURSE ---
Pt medicated per may. Afib on tele in 110s, otherwise vss. Pt denies complaints or needs, offered linen change/ fresh gown and declined. Pt IV placed from previous shift, this rn documented- currently intact, flushing well. Awaiting bed assignment.
--- NOTE | 2020-03-03 14:17 | PC.NURSE ---
x 11 attempt to give report
[2020-03-03] MEDS: 0.9 % Sodium Chloride Flush 3 ML SYRINGE IVFLUSH ×2 (15:41→22:14)
[2020-03-03 15:58] LABS: Hematocrit 32.4 % (42-52); Hemoglobin 9.9 g/dl (14.0-18.0); Mean Corpuscular HGB Conc 30.6 g/dl (31.0-36.0); Platelet Count 188 X10*3/uL (160-400); Red Cell Distribution Width 15.7 % (11.0-16.0); White Blood Count 11.3 X10*3/uL (4.8-10.8)
[2020-03-03 16:10] LABS: INTERNATIONAL NORM RATIO 1.3 (0.9-1.1); Prothrombin Time 15.9 SEC (10.8-13.0)
[2020-03-03 16:13] LABS: Partial Thromboplastin Time 39.6 SEC (24.1-38.0)
[2020-03-03] MEDS: PHENobarbitaL 15 MG TABLET 45 MG PO (22:14)
[2020-03-04] VITALS (8 sets, daily range): BP systolic 124–158; BP diastolic 60–97; PULSE 86–109; RESP 18–20; TEMP 36.3–36.9; O2SAT 92–100; BMI 25.9
[2020-03-04] MEDS: Enoxaparin Sodium 60 MG/0.6 ML SYRINGE 80 MG SUBCUT (05:27)
[2020-03-04 05:52] LABS: MANUAL DIFF FLAG NO
[2020-03-04 05:57] LABS: Basophils Percent Auto 0.4 % (0-2); Eosinophils Percent Auto 0.4 % (0-4); Hematocrit 33.3 % (42-52); Hemoglobin 10.1 g/dl (14.0-18.0); Imm Gran Abs Auto 0.04 X10*3/uL (0.00-0.03); Imm Gran Pct Auto 0.4 % (0.0-0.4); Lymphocytes Absolute Auto 1.3 X10*3/uL (1.2-4.9); Mean Corpuscular HGB Conc 30.3 g/dl (31.0-36.0); Mean Corpuscular Hemoglobin 21.7 pg (27.0-33.0); Mean Corpuscular Volume 71.6 fL (80-98); Mean Platelet Volume 10.1 fL (9.4-12.4); Monocytes Absolute Auto 1.2 X10*3/uL (0.1-1.2); Monocytes Percent Auto 12.6 % (2-11); Neutrophils Absolute Auto 6.8 X10*3/uL (2.0-8.3); Neutrophils Percent Auto 72.2 % (45-73); Platelet Count 148 X10*3/uL (160-400); Red Blood Count 4.65 X10*6/uL (4.60-5.80); Red Cell Distribution Width 15.6 % (11.0-16.0); White Blood Count 9.5 X10*3/uL (4.8-10.8)
[2020-03-04 06:01] LABS: INTERNATIONAL NORM RATIO 1.3 (0.9-1.1)
[2020-03-04 06:26] LABS: Anion Gap 17 (12-20); Blood Urea Nitrogen 21 mg/dL (9-16); Calcium 8.2 mg/dL (8.4-10.2); Carbon Dioxide 25 mmol/L (22-29); Chloride 97 mmol/L (96-108); Creatinine Clr Calc Pharmacy 64.8; Estimated Glomerular Filt Rate > 60; Glucose Random 88 mg/dL (60-115); Potassium 3.8 mmol/l (3.3-5.1); Sodium 135 mmol/L (135-145)
[2020-03-04 06:42] LABS: Thyroid Stimulating Hormone 1.16 uIU/mL (0.32-4.0)
[2020-03-04] MEDS: Furosemide 40 MG/4 ML VIAL IVPUSH ×2 (08:55→18:00)
[2020-03-04] MEDS: 0.9 % Sodium Chloride Flush 3 ML SYRINGE IVFLUSH ×2 (08:55→16:55)
[2020-03-04] MEDS: PHENobarbitaL 15 MG TABLET 45 MG PO ×2 (08:55→21:10)
--- NOTE | 2020-03-04 10:09 | P.PNIM_ITS ---
Subjective Subjective Date of Service: 03/04/20 Interval History: feeling better Cardiovascular Cardiovascular: Reports no additional cardiovascular complaints Gastrointestinal Gastrointestinal: Reports no additional gastrointestinal complaints Physical Exam Vital Signs: Vital Signs: Last Vital Signs Temp 97.5 F 03/04/20 08:00 Pulse 104 H 03/04/20 08:00 Resp 18 03/04/20 08:00 BP 158/90 H 03/04/20 08:00 Pulse Ox 100 03/04/20 08:00 Body Mass Index 25.9 General: AO X 3, no acute distress Resp: CTA bilateral CVS: S1,S2,fast irregular GI: soft, non tender, non distended Neuro: motor grossly intact Psych: appropriate affect Objective Data Current Medications Generic Name Dose Route Start Last Admin Trade Name Freq PRN Reason Stop Dose Admin Acetaminophen 650 mg 03/03/20 04:56 Acetaminophen 325 Mg Tablet PO Q6H PRN Pain, Mild (Pain Scale 1-3) Docusate Sodium 100 mg 03/03/20 04:56 Docusate Sodium 100 Mg Capsule PO DAILY PRN Constipation Furosemide 40 mg 03/03/20 15:06 03/04/20 08:55 Furosemide 40 Mg/4 Ml Vial IVPUSH 40 mg BID@0900,1800 [facility] Administration Protocol Medication 1 each 03/03/20 09:00 No Benzodiazepines MISCELLANE DAILY [facility] Metoprolol Tartrate 25 mg 03/04/20 10:15 Metoprolol Tartrate 25 Mg Tablet PO Q6H [facility] Protocol Ondansetron HCl 4 mg 03/03/20 04:56 Ondansetron Hcl 4 Mg/2 Ml Vial IVPUSH Q8H PRN Nausea and Vomiting Phenobarbital 45 mg 03/03/20 21:00 03/04/20 08:55 Phenobarbital 15 Mg Tablet PO 03/05/20 09:01 45 mg BID [facility] Administration Protocol Phenobarbital 15 mg 03/05/20 21:00 Phenobarbital 15 Mg Tablet PO 03/07/20 09:01 BID [facility] Protocol Phenobarbital 15 mg 03/08/20 09:00 Phenobarbital 15 Mg Tablet PO 03/09/20 09:01 DAILY [facility] Protocol Rivaroxaban 20 mg 03/04/20 17:00 Rivaroxaban 20 Mg Tablet PO DAILY@1700 [facility] Sodium Chloride 3 ml 03/03/20 08:00 03/04/20 08:55 0.9 % Sodium Chloride Flush 3 Ml Syringe IVFLUSH 3 ml QSHIFT [facility] Administration Valsartan 80 mg 03/04/20 10:15 Valsartan 80 Mg Tablet PO DAILY [facility] Protocol Labs CBC & Chem 7: 03/04/20 04:32 03/04/20 04:32 Assessment and Plan (1) New onset of congestive heart failure: Status: Acute (2) Atrial fibrillation: Status: Acute (3) Hypertension: Status: Acute (4) Alcohol use disorder: Status: Acute Assessment and Plan: This is a 69-year-old male with past medical history of hypertension who presented with sob, found to be in afib and chf acute systolic chf EF -20% tachycardia induced vs ETOH IV lasix received 3 doses 0.25mg digoxin, conintue lopressor - increased to 25mg q6, started diovan 80mg daily, xarelto 20mg daily ETOH dependence mild withdrawl continue phenobarbital HTN meotprolol diovan
[2020-03-04] MEDS: Valsartan 80 MG TABLET PO (10:52)
[2020-03-04] MEDS: Metoprolol Tartrate 25 MG TABLET PO ×3 (10:52→21:11)
--- NOTE | 2020-03-04 12:38 | PM.PNCARD ---
Subjective Subjective Date of Service: 03/04/20 Principal diagnosis: CHF, atrial fibrillation Interval history: Patient says he is feeling better. Breathing is improved. Remains in atrial fibrillation borderline rate response. Has diuresed well. Blood pressure is elevated. Review of Systems Constitutional: Reports no additional constitutional complaints Eyes: Reports no additional eye complaints Cardiovascular: Denies chest pain, Denies leg edema, Denies palpitations and Denies dyspnea Respiratory: Reports no additional respiratory complaints and Denies dyspnea Gastrointestinal: Reports no additional gastrointestinal complaints Reports system reviewed and no additional complaints, except as documented Endocrine: Denies palpitations Hematologic/Lymphatic: Reports no additional hematologic/lymphatic complaints Physical Exam Vital Signs: Last Vital Signs Temp 97.5 F 03/04/20 08:00 Pulse 104 H 03/04/20 10:52 Resp 18 03/04/20 08:00 BP 158/90 H 03/04/20 10:52 Pulse Ox 100 03/04/20 08:00 Body Mass Index 25.9 Const General: comfortable, no acute distress, alert and awake Nutritional Appearance: overweight Orientation/consciousness: patient oriented x3 Limitations: no limitations HENMT Head: Yes normocephalic and Yes atraumatic Eyes General: appearance normal, both eyes and all related structures Neck Neck: Yes trachea midline, Yes supple and Yes JVD Chest Chest palpation & inspection: normal inspection of the chest Resp Effort & Inspection: normal respiratory effort Auscultation: clear to auscultation bilaterally Cardio Jugular venous distension: JVD Palpation: abnormal PMI displaced PMI Rhythm: abnormal rhythm irregularly irregular Heart sounds: S1 normal heart sound present, S2 normal heart sound present and Murmur heart sound present systolic GI Auscultation: normal bowel sounds Skin General skin exam: no rashes or lesions noted Neuro General: patient oriented x3 Extrem General: Yes no clubbing, cyanosis or edema Results Labs and Meds Result diagrams: 03/04/20 04:32 03/04/20 04:32 Lab results: Laboratory Results - last 24 hr 03/03/20 03/03/20 03/04/20 15:42 15:42 04:32 WBC 11.3 H RBC 4.50 L Hgb 9.9 L Hct 32.4 L MCV 72.0 L MCH 22.0 L MCHC 30.6 L RDW 15.7 Plt Count 188 MPV 10.0 Immature Gran % (Auto) Neut % (Auto) Lymph % (Auto) [place] % (Auto) Eos % (Auto) Baso % (Auto) Lymph # (Auto) [place] # (Auto) Eos # (Auto) Baso # (Auto) Abs Immat Gran (auto) Absolute Neuts (auto) Absolute Nucleated RBC 0.000 Nucleated RBC % (auto) 0.0 PT 15.9 H 16.0 H INR 1.3 H 1.3 H APTT 39.6 H Sodium Potassium Chloride Carbon Dioxide Anion Gap BUN Creatinine Estim Creat Clear Calc Estimated GFR Random Glucose Calcium TSH 03/04/20 03/04/20 03/04/20 04:32 04:32 04:32 WBC 9.5 RBC 4.65 Hgb 10.1 L Hct 33.3 L MCV 71.6 L MCH 21.7 L MCHC 30.3 L RDW 15.6 Plt Count 148 L MPV 10.1 Immature Gran % (Auto) 0.4 Neut % (Auto) 72.2 Lymph % (Auto) 14.0 L [place] % (Auto) 12.6 H Eos % (Auto) 0.4 Baso % (Auto) 0.4 Lymph # (Auto) 1.3 [place] # (Auto) 1.2 Eos # (Auto) 0.0 Baso # (Auto) 0.0 Abs Immat Gran (auto) 0.04 H Absolute Neuts (auto) 6.8 Absolute Nucleated RBC 0.000 Nucleated RBC % (auto) 0.0 PT INR APTT Sodium 135 Potassium 3.8 Chloride 97 Carbon Dioxide 25 Anion Gap 17 BUN 21 H Creatinine 1.04 Estim Creat Clear Calc 64.8 Estimated GFR > 60 Random Glucose 88 Calcium 8.2 L TSH 1.16 Progress Note: A&P Assessment and plan (1) Cardiomyopathy: Status: Acute Assessment and Plan: Cardiomyopathy with severe LV systolic dysfunction, appears to be nonischemic with diffuse nature of cardiomyopathy. Underlying coronary artery disease will eventually need to be worked out. Most likely etiology appears to be either tachycardia mediated cardiomyopathy with related to atrial fibrillation versus alcohol induced. He also has significant mitral regurgitation significant biatrial enlargement which may suggest that atrial fibrillation may be more chronic. Will add neurohormonal modulation. Up titrate metoprolol for better rate control as well as for neurohormonal modulation. Also add valsartan, eventually switch to Entresto therapy as outpatient. Complete cessation of alcohol was discussed. (2) Atrial fibrillation: Status: Acute Assessment and Plan: Atrial fibrillation borderline rate control. Increase metoprolol to 25 mg q.6 hours and maximize as tolerated. He has significant elevation of blood pressure and can tolerate metoprolol therapy. Pursue rate control for now. Continue oral anticoagulation Xarelto. Eventually will discuss about rhythm control versus rate control approach. He does have significant left atrial enlargement that may require antiarrhythmic drug support for maintenance of rhythm. Complete cessation of alcohol was discussed. (3) CHF (congestive heart failure): Status: Acute Assessment and Plan: CHF is improving with diuresis. Continue IV Lasix for 1 more day. Strict intake and output chart needs to be pursued. CHF education should be provided. Continue uptitration neurohormonal modulation as above. Will follow up with patient. Thank you for allowing us to partake in his care Fall Risk Details Current Medications: Current Medications Generic Name Dose Route Start Last Admin Trade Name Freq PRN Reason Stop Dose Admin Acetaminophen 650 mg 03/03/20 04:56 Acetaminophen 325 Mg Tablet PO Q6H PRN Pain, Mild (Pain Scale 1-3) Docusate Sodium 100 mg 03/03/20 04:56 Docusate Sodium 100 Mg Capsule PO DAILY PRN Constipation Furosemide 40 mg 03/03/20 15:06 03/04/20 08:55 Furosemide 40 Mg/4 Ml Vial IVPUSH 40 mg BID@0900,1800 [facility] Administration Protocol Medication 1 each 03/03/20 09:00 No Benzodiazepines MISCELLANE DAILY [facility] Metoprolol Tartrate 25 mg 03/04/20 10:00 03/04/20 10:52 Metoprolol Tartrate 25 Mg Tablet PO 25 mg Q6H [facility] Administration Protocol Ondansetron HCl 4 mg 03/03/20 04:56 Ondansetron Hcl 4 Mg/2 Ml Vial IVPUSH Q8H PRN Nausea and Vomiting Phenobarbital 45 mg 03/03/20 21:00 03/04/20 08:55 Phenobarbital 15 Mg Tablet PO 03/05/20 09:01 45 mg BID [facility] Administration Protocol Phenobarbital 15 mg 03/05/20 21:00 Phenobarbital 15 Mg Tablet PO 03/07/20 09:01 BID [facility] Protocol Phenobarbital 15 mg 03/08/20 09:00 Phenobarbital 15 Mg Tablet PO 03/09/20 09:01 DAILY [facility] Protocol Rivaroxaban 20 mg 03/04/20 17:00 Rivaroxaban 20 Mg Tablet PO DAILY@1700 [facility] Sodium Chloride 3 ml 03/03/20 08:00 03/04/20 08:55 0.9 % Sodium Chloride Flush 3 Ml Syringe IVFLUSH 3 ml QSHIFT [facility] Administration Valsartan 80 mg 03/04/20 10:15 03/04/20 10:52 Valsartan 80 Mg Tablet PO 80 mg DAILY [facility] Administration Protocol Time Spent With Patient Time: Total time spent is greater than 50% in coordination of care (as documented) at patient's floor/unit and/or counseling patient: Time with patient: 25 - 35 minutes
--- NOTE | 2020-03-04 16:27 | MHC.CM.PN ---
Pt reports he lives with his 91 yo mother. Pt is independent with care and mobility and has no services or DME Pt reports he has not seen a PCP since 2014, he is listed with Ira Ram[facility]rez however reports he has not seen her yet. He would like an appt made as long as it is in the morning as his sister would be with his mother at that time. Pt does not have a HCP, he did not want to complete one today but did take information and a blank document to complete at a later time. current DC plan is home with no services pt will self arrange transportation
[2020-03-04] MEDS: Rivaroxaban 20 MG TABLET PO (16:55)
--- NOTE | 2020-03-04 17:32 | PC.NURSE ---
Addendum entered by Rachele Prado RN 03/04/20 17:34: Spoke with pt's son/HCP, given update about hospital stay. Original Note: Hospitalist and [employer] in to see pt. Still afib on monitor. Adjustments made to medications, pt started on xarelto. Pt understands reasoing for medications. Pt refusing bed alarm, high fall risk due to potential for etoh w/d and pheno protocol. Pt ambulates with steady gait, ambulating in [address] way well. Educated pt on safety, and ringing for assistance if need.
[2020-03-05] VITALS: BP 138/68; PULSE 66; RESP 18; TEMP 36.8; O2SAT 96
[2020-03-05] MEDS: 0.9 % Sodium Chloride Flush 3 ML SYRINGE IVFLUSH ×2 (00:04→08:38)
[2020-03-05 04:00] VITALS: BP 145/80; PULSE 103; RESP 18; TEMP 36.7; O2SAT 99
[2020-03-05 04:10] VITALS: BP 145/80; PULSE 97
[2020-03-05] MEDS: Metoprolol Tartrate 25 MG TABLET PO ×2 (04:10→08:37)
[2020-03-05 06:00] VITALS: BMI 25.1
[2020-03-05] MEDS: Acetaminophen 325 MG TABLET 650 MG PO (06:18)
--- NOTE | 2020-03-05 06:44 | PC.NURSE ---
7p-7a; patient high fall risk, patient continues to refuse bed alarm. Patient alert and oriented, ambulates with steady gait. Continue to re-educate on safety and encourage to use call ol[facility]ares for assistance when needed. Patient verbalizes understanding.
[2020-03-05 08:00] VITALS: BP 149/77; PULSE 96; RESP 20; TEMP 36.6; O2SAT 97
[2020-03-05] MEDS: PHENobarbitaL 15 MG TABLET 45 MG PO (08:37)
[2020-03-05] MEDS: Valsartan 80 MG TABLET PO (08:37)
[2020-03-05] MEDS: Furosemide 40 MG/4 ML VIAL IVPUSH (08:38)
--- NOTE | 2020-03-05 10:09 | PM.PNCARD ---
Subjective Subjective Date of Service: 03/05/20 Principal diagnosis: CHF, atrial fibrillation Interval history: He feels okay. No specific cardiac complaints. Would like to get discharged home. Review of Systems Review of Systems Yes all other systems are reviewed and are negative Constitutional: Denies frequent falls Cardiovascular: Reports as per HPI, Reports no additional cardiovascular complaints, Denies acrocyanosis, Denies cool extremities, Denies painful fingertips, Denies chest pain, Denies chest pain at rest, Denies diaphoresis, Denies syncope, Denies irregular heart rhythm, Denies claudication, Denies leg edema, Denies lightheadedness, Denies palpitations and Denies dyspnea Respiratory: Denies dyspnea Reports system reviewed and no additional complaints, except as documented, Denies syncope and Denies frequent falls Endocrine: Denies palpitations Physical Exam Vital Signs: Last Vital Signs Temp 97.9 F 03/05/20 08:00 Pulse 96 03/05/20 08:00 Resp 20 03/05/20 08:00 BP 149/77 H 03/05/20 08:00 Pulse Ox 97 03/05/20 08:00 Body Mass Index 25.1 Const General: cooperative, comfortable and no acute distress Orientation/consciousness: patient oriented x3 HENMT Other: Unremarkable Neck Neck: Yes normal visual inspection Chest Chest palpation & inspection: normal inspection of the chest Resp Auscultation: clear to auscultation bilaterally, no crackles and no wheezes Cardio Jugular venous distension: no JVD Palpation: normal PMI Heart sounds: S1 normal heart sound present, S2 normal heart sound present, no gallops, no murmurs and no rubs GI Palpation (GI): Soft to palpation Back/Spine/Pelvis Other: unremarkable Skin General skin exam: no rashes or lesions noted Neuro General: patient oriented x3 Extrem General: Yes no clubbing, cyanosis or edema Psych Mental Status: mental status grossly normal Results Labs and Meds Result diagrams: 03/04/20 04:32 03/04/20 04:32 Progress Note: A&P Assessment and plan (1) Cardiomyopathy: Status: Acute (2) Atrial fibrillation: Status: Acute (3) Alcohol use disorder: Status: Acute (4) Hypertension: Status: Acute Assessment and Plan: Telemetry in atrial fibrillation with ventricular rate of about 100/Min. We can convert the beta-blockers sustained release preparations. Otherwise continue with anticoagulation. 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 Outpatient appointment will be made. Fall Risk Details Current Medications: Current Medications Generic Name Dose Route Start Last Admin Trade Name Freq PRN Reason Stop Dose Admin Acetaminophen 650 mg 03/03/20 04:56 03/05/20 06:18 Acetaminophen 325 Mg Tablet PO 650 mg Q6H PRN Administration Pain, Mild (Pain Scale 1-3) Docusate Sodium 100 mg 03/03/20 04:56 Docusate Sodium 100 Mg Capsule PO DAILY PRN Constipation Furosemide 40 mg 03/03/20 15:06 03/05/20 08:38 Furosemide 40 Mg/4 Ml Vial IVPUSH 40 mg BID@0900,1800 [facility] Administration Protocol Medication 1 each 03/03/20 09:00 No Benzodiazepines MISCELLANE DAILY [facility] Metoprolol Tartrate 25 mg 03/04/20 10:00 03/05/20 08:37 Metoprolol Tartrate 25 Mg Tablet PO 25 mg Q6H LYDIA Administration Protocol Ondansetron HCl 4 mg 03/03/20 04:56 Ondansetron Hcl 4 Mg/2 Ml Vial IVPUSH Q8H PRN Nausea and Vomiting Phenobarbital 15 mg 03/05/20 21:00 Phenobarbital 15 Mg Tablet PO 03/07/20 09:01 BID LYDIA Protocol Phenobarbital 15 mg 03/08/20 09:00 Phenobarbital 15 Mg Tablet PO 03/09/20 09:01 DAILY LYDIA Protocol Rivaroxaban 20 mg 03/04/20 17:00 03/04/20 16:55 Rivaroxaban 20 Mg Tablet PO 20 mg DAILY@1700 LYDIA Administration Sodium Chloride 3 ml 03/03/20 08:00 03/05/20 08:38 0.9 % Sodium Chloride Flush 3 Ml Syringe IVFLUSH 3 ml QSHIFT LYDIA Administration Valsartan 80 mg 03/04/20 10:15 03/05/20 08:37 Valsartan 80 Mg Tablet PO 80 mg DAILY LYDIA Administration Protocol Time Spent With Patient Time: Total time spent is greater than 50% in coordination of care (as documented) at patient's floor/unit and/or counseling patient: Time with patient: 15 - 24 minutes
--- NOTE | 2020-03-05 11:46 | MHC.RECOVSUP ---
Recovery Support note: Patient is a 69 year old [place] speaking male who presented to [facility] ED and was medically admitted. This technical writer and editor met with patient in [facility] 446-1 to discuss his alcohol use. Patient reports drinking 5 beers a day and that he plans to stop drinking entirely. Patient reports he has had too many scares and that he doesn't want his drinking to negatively impact his health. Patient reports he has a positive attitude towards his recovery. Patient stated I know what I need to do. Patient declined resources, reporting that he is confident he will be able to stop and if he needs support he knows where to find it. Discussed case with patient's RN, Cayla.
[2020-03-05 11:54] VITALS: BP 134/66; PULSE 100; RESP 20; TEMP 36.8; O2SAT 98
--- NOTE | 2020-03-05 12:15 | MHC.CM.PN ---
dr valdivia imformed that pt will have no copay with xarelto and that pt will not be able to have a vna as he has not yet had a visit with pcp dr mclean ,cm office unable to make appt ,pt given phone number to brad richey
[2020-03-05 12:23] LABS: Anion Gap 13 (12-20); Blood Urea Nitrogen 23 mg/dL (9-16); Carbon Dioxide 34 mmol/L (22-29); Chloride 93 mmol/L (96-108); Creatinine Clr Calc Pharmacy 54.3; Estimated Glomerular Filt Rate 58; Glucose Random 96 mg/dL (60-115); Potassium 3.7 mmol/l (3.3-5.1); Sodium 136 mmol/L (135-145)
[2020-03-05 12:38] LABS: Calcium 9.1 mg/dL (8.4-10.2); Magnesium 1.4 mg/dL (1.6-2.6)
[2020-03-05] MEDS: Magnesium Sulfate/H2O 2 GM/50 ML PIGGYBACK IV (13:19)
--- NOTE | 2020-03-05 14:35 | P.DS_ITS ---
DS: Providers Provider Date of admission: 03/03/20 04:46 Primary care physician: Ira Ramírez MD Consults: 03/03/20 04:56 Consult to Cardiology Routine Consulting Provider: Francisco Corral Reason for consultation: New onst CHF, AFIB Has provider been notified: No 03/05/20 11:02 Consult to Care Team Routine Comment: Reason for consultation: etoh abuse DS: Diagnosis Discharge Diagnosis (1) Cardiomyopathy: Status: Acute (2) Atrial fibrillation: Status: Acute (3) Alcohol use disorder: Status: Acute (4) Hypertension: Status: Acute (5) Hypomagnesemia: Status: Acute DS: Medications Discharge Medications Home Medications: Home Medications Medication Instructions Recorded Confirmed No Known Home Meds 03/03/20 03/03/20 Previous Rx's Medication Instructions Recorded furosemide [Lasix] 40 mg PO DAILY #30 tab 03/05/20 metoprolol succinate 50 mg PO DAILY #30 tab 03/05/20 rivaroxaban [Xarelto] 20 mg PO DAILY@1700 #30 tab 03/05/20 valsartan 80 mg PO DAILY #30 tab 03/05/20 DS: Summary Hospital Course Hospital Course: 69-year-old gentleman with past medical history of hypertension presented to [facility] with symptoms of shortness of breath patient diagnosed to have atrial fibrillation and acute systolic congestive heart failure an echocardiogram was obtained that showed an EF of 20%, it was felt that likely CHF is related to tachycardia versus alcohol use patient was treated with intravenous Lasix, Lopressor, Diovan and was placed on Xarelto for anticoagulation patient responded well to above treatment his symptoms of shortness of breath has resolved heart rate is improved patient was followed closely by Cardiology and they are recommending patient to be discharged home on by mouth Lopressor, Diovan and Xarelto, patient will have close follow-up with Cardiology as outpatient Alcohol abuse and withdrawal. Patient has history of alcohol dependence was noted to be in mild withdrawal therefore was treated with phenobarb protocol patient has been seen by care team and has been recommended outpatient alcohol detox patient has been strongly advised to completely abstain from alcohol Hypomagnesemia likely related to alcohol abuse has been replaced patient has been recommended to have outpatient labs and to follow up with pcp Hypertension continue metoprolol and Diovan and follow-up with PCP Time Spent with Patient Time attestation: Total time spent providing and/or coordinating discharge services: Physical Exam Vital Signs: Vital Signs: Last Vital Signs Temp 98.2 F 03/05/20 11:54 Pulse 100 03/05/20 11:54 Resp 20 03/05/20 11:54 BP 134/66 03/05/20 11:54 Pulse Ox 98 03/05/20 11:54 Body Mass Index 25.1 General patient sitting comfortably in no acute distress. Neck is supple no JVD. CVS regular rate rhythm, Respiratory lungs diminished breath sound at bases, no respiratory distress, no wheeze, no rhonchi. Gastrointestinal abdomen soft, nontender, bowel sounds audible Extremities no clubbing cyanosis or edema. Neuro nonfocal , speech clear. Skin no rash DS: Data Data Completed and Pending Labs on day of discharge: 03/03/20 01:40 ECG 12 lead EKG Stat EKG Documentation DIRECTED IV insert/maintain .Now XR chest 1V Stat 03/03/20 01:54 B Type Natriuretic Peptide Stat Complete Blood Count Auto Diff Stat Ethanol Stat Troponin-I High Sensitivity Stat 03/03/20 01:55 Comprehensive Met. Panel Stat Lipase Stat 03/03/20 02:04 Metoprolol Tartrate [Lopressor] 5 mg IVPUSH ONCE ONE 03/03/20 02:32 Add Laboratory Test Stat 03/03/20 02:39 Furosemide [Lasix] 40 mg IVPUSH ONCE ONE 03/03/20 03:23 SARS-CoV2/FLU/RSV Stat 03/03/20 03:28 DDimer [D Dimer] Stat 03/03/20 03:48 Metoprolol Tartrate [Lopressor] 5 mg IVPUSH ONCE ONE 03/03/20 03:59 Drug Screen Urine Stat UA CC w/rflx Micro + Cult Stat 03/03/20 04:46 Transfer Order Routine 03/03/20 04:54 Consult Rx EtOH Phenob Dosing 1 each MISCELLANE ONCE ONE 03/03/20 05:00 Enoxaparin Sodium [Lovenox] 80 mg SUBCUT Q12H 03/03/20 05:30 PHENobarbitaL sodium 219 mg IM ONCE ONE 03/03/20 06:37 Troponin-I High Sensitivity Routine 03/03/20 08:30 PHENobarbitaL sodium 164 mg IM Q3H 03/03/20 09:00 Metoprolol Tartrate [Lopressor] 12.5 mg PO BID 03/03/20 09:55 CA echo transthoracic complete Routine 03/03/20 11:30 Digoxin [Lanoxin] 0.25 mg IVPUSH Q6H Metoprolol Tartrate [Lopressor] 25 mg PO Q12H 03/03/20 15:06 Furosemide [Lasix] 40 mg IVPUSH BID@0900,1800 03/03/20 15:42 Complete Blood Count no Diff Stat Partial Thromboplastin Time Stat Prothrombin Time INR Stat 03/03/20 21:00 PHENobarbitaL 45 mg PO BID 03/04/20 04:32 Basic Metabolic Panel Routine Complete Blood Count Auto Diff Routine Prothrombin Time INR Routine Thyroid Stimulating Hormone Routine 03/04/20 10:00 Metoprolol Tartrate [Lopressor] 25 mg PO Q6H 03/05/20 11:27 Basic Metabolic Panel Routine Magnesium Routine Laboratory Last Values WBC 9.5 X10*3/uL (4.8-10.8) 03/04/20 04:32 RBC 4.65 X10*6/uL (4.60-5.80) 03/04/20 04:32 Hgb 10.1 g/dl (14.0-18.0) L 03/04/20 04:32 Hct 33.3 % (42-52) L 03/04/20 04:32 MCV 71.6 fL (80-98) L 03/04/20 04:32 MCH 21.7 pg (27.0-33.0) L 03/04/20 04:32 MCHC 30.3 g/dl (31.0-36.0) L 03/04/20 04:32 RDW 15.6 % (11.0-16.0) 03/04/20 04:32 Plt Count 148 X10*3/uL (160-400) L 03/04/20 04:32 MPV 10.1 fL (9.4-12.4) 03/04/20 04:32 Immature Gran % (Auto) 0.4 % (0.0-0.4) 03/04/20 04:32 Neut % (Auto) 72.2 % (45-73) 03/04/20 04:32 Lymph % (Auto) 14.0 % (20-40) L 03/04/20 04:32 [place] % (Auto) 12.6 % (2-11) H 03/04/20 04:32 Eos % (Auto) 0.4 % (0-4) 03/04/20 04:32 Baso % (Auto) 0.4 % (0-2) 03/04/20 04:32 Lymph # (Auto) 1.3 X10*3/uL (1.2-4.9) 03/04/20 04:32 [place] # (Auto) 1.2 X10*3/uL (0.1-1.2) 03/04/20 04:32 Eos # (Auto) 0.0 X10*3/uL (0.0-0.4) 03/04/20 04:32 Baso # (Auto) 0.0 X10*3/uL (0.0-0.2) 03/04/20 04:32 Abs Immat Gran (auto) 0.04 X10*3/uL (0.00-0.03) H 03/04/20 04:32 Absolute Neuts (auto) 6.8 X10*3/uL (2.0-8.3) 03/04/20 04:32 Absolute Nucleated RBC 0.000 X10*3/uL (0.0-0.012) 03/04/20 04:32 Nucleated RBC % (auto) 0.0 /100WBC (0.0-0.2) 03/04/20 04:32 PT 16.0 SEC (10.8-13.0) H 03/04/20 04:32 INR 1.3 (0.9-1.1) H 03/04/20 04:32 APTT 39.6 SEC (24.1-38.0) H 03/03/20 15:42 D-Dimer 284 NG/ML 03/03/20 03:28 Sodium 136 mmol/L (135-145) 03/05/20 11:27 Potassium 3.7 mmol/l (3.3-5.1) 03/05/20 11:27 Chloride 93 mmol/L (96-108) L 03/05/20 11:27 Carbon Dioxide 34 mmol/L (22-29) H 03/05/20 11:27 Anion Gap 13 (12-20) 03/05/20 11:27 BUN 23 mg/dL (9-16) H 03/05/20 11:27 Creatinine 1.24 mg/dL (0.5-1.4) 03/05/20 11:27 Estim Creat Clear Calc 54.3 03/05/20 11:27 Estimated GFR 58 03/05/20 11:27 Random Glucose 96 mg/dL (60-115) 03/05/20 11:27 Calcium 9.1 mg/dL (8.4-10.2) D 03/05/20 11:27 Magnesium 1.4 mg/dL (1.6-2.6) L* 03/05/20 11:27 Total Bilirubin 1.1 mg/dL (0.0-1.0) H 03/03/20 01:55 AST 29 U/L (5-37) 03/03/20 01:55 ALT 38 U/L (0-40) 03/03/20 01:55 Alkaline Phosphatase 61 U/L (39-117) 03/03/20 01:55 Troponin I High Sens 21.8 ng/L (<3.5-35.0) 03/03/20 06:37 B-Natriuretic Peptide 972 pg/mL (<100) H 03/03/20 01:54 Total Protein 7.4 g/dL (6.5-8.0) 03/03/20 01:55 Albumin 3.9 g/dL (3.5-5.0) 03/03/20 01:55 Lipase 31 U/L (8-78) 03/03/20 01:55 TSH 1.16 uIU/mL (0.32-4.0) 03/04/20 04:32 Urine Color YELLOW 03/03/20 03:59 Urine Appearance CLEAR 03/03/20 03:59 Urine pH 6.0 (5.0-8.0) 03/03/20 03:59 Ur Specific [place] 1.020 (1.005-1.025) 03/03/20 03:59 Urine Protein NEG MG/DL (NEG-TRACE) 03/03/20 03:59 Urine Glucose (UA) NEG MG/DL (NEG) 03/03/20 03:59 Urine Ketones NEG MG/DL (NEG) 03/03/20 03:59 Urine Blood NEG (NEG) 03/03/20 03:59 Urine Nitrite NEG (NEG) 03/03/20 03:59 Ur Leukocyte Esterase NEG (NEG) 03/03/20 03:59 Urine Opiates Screen Not Detected (Not Detect) 03/03/20 03:59 Ur Barbiturates Screen Not Detected (Not Detect) 03/03/20 03:59 Ur Phencyclidine Scrn Not Detected (Not Detect) 03/03/20 03:59 Ur Amphetamines Screen Not Detected (Not Detect) 03/03/20 03:59 U Benzodiazepines Scrn Not Detected (Not Detect) 03/03/20 03:59 Urine Cocaine Screen Not Detected (Not Detect) 03/03/20 03:59 U Marijuana (THC) Screen Not Detected (Not Detect) 03/03/20 03:59 Ethyl Alcohol < 10 mg/dL 03/03/20 01:54 Coronavirus (PCR) NEGATIVE (Negative) 03/03/20 03:23 Influenza Type A (PCR) NEGATIVE (Negative) 03/03/20 03:23 Influenza Type B (PCR) NEGATIVE (Negative) 03/03/20 03:23 RSV RNA Qual (PCR) NEGATIVE (Negative) 03/03/20 03:23 Discharge Plan Discharge Patient Disposition: Home, Self-Care Referrals: Ira Ramírez MD [Primary Care Provider] - 1 Week (Please call and schedule a New patient appointment with Dr. Ramírez's office- per Dr. Ramírez's office you have never been seen there they would like you to call and set up the appointment so you can give them some information. Katy has given you all there information and it is also listed on this sheet. ) Discharge Medications: New Xarelto 20 mg Tablet 20 mg PO DAILY@1700 Qty: 30 RF: 0 metoprolol succinate 50 mg Tablet Extended Release 24 Hr 50 mg PO DAILY Qty: 30 RF: 0 valsartan 80 mg Tablet 80 mg PO DAILY Qty: 30 RF: 0 furosemide [Lasix] 40 mg tablet 40 mg PO DAILY Qty: 30 RF: 0 No Action No Known Home Meds RF: 0 Discharge Orders: Discharge Order (Routine); Ordered 03/05/20 Ordered By: Micaela Jacinto Diet: low fat, low cholesterol and low salt diet Activity on Discharge: As tolerated Other Ambulatory Orders: Basic Metabolic Panel Fasting (Routine) Timeframe: 1 Week Facility: [facility] - Location: Laboratory Ordered By: Micaela Jacinto Magnesium (Routine) Timeframe: [id number] Facility: [facility] - Location: Laboratory Ordered By: Micaela Jacinto Visit Report Forms: Patient Portal Discharge page Care Plan Goals: Follow low-salt diet , and complete abstinence from alcohol, check labs in next few days Health Concerns: Return to check with any worsening shortness of breath chest pain. Plan of Treatment: Follow-up with primary care physician and afterschool Dr. Ribera
[2020-03-05] MEDS: Magnesium Oxide 400 MG TABLET PO (15:15)
--- NOTE | 2020-03-05 15:34 | PC.NURSE ---
Pt encouraged to wait for results of Mg before leaving, but does not want to wait. Pt aware if results are critical he would be advised to return to hospital. Pt stated he is aware and would return if needed.
[2020-03-05 15:57] LABS: Magnesium 2.3 mg/dL (1.6-2.6)
== END 2020-03-05 15:35 | disposition home or self-care (01) | DRG 291 ==
LOC: HO.ED 05:12 → HO.IMC 14:04
PROVIDERS: Admitting Provider Internal Medicine; Emergency Provider Student in an Organized Health Care Education/Training Program; PCP Internal Medicine; Visit Provider Hospitalist
DX: I11.0 Hypertensive heart disease with heart failure (principal); I50.21 Acute systolic (congestive) heart failure; F10.239 Alcohol dependence with withdrawal, unspecified; E83.42 Hypomagnesemia; I48.91 Unspecified atrial fibrillation; Z20.828 Contact with and (suspected) exposure to other viral communicable diseases; Z79.01 Long term (current) use of anticoagulants; Z79.899 Other long term (current) drug therapy
CPT/HCPCS: 0241U; 36415; 71045; 80048; 80053; 80307; 80320; 81003; 83690; 83735; 83880; 84443; 84484; 85025; 85027; 85379; 85610; 85730; 93005; 93306; 96374; 96375; 96376; 99285; 99291; J1160; J1650; J1940; J2560; J3475

== ENCOUNTER → 2020-03-08 16:35 | Outpatient (REF) | payer OTHER, SELFPAY | LOC: HO.CARD 16:35 | PROVIDERS: Visit Provider Internal Medicine Cardiovascular Disease | DX: Z13.89 Encounter for screening for other disorder (principal) ==

== ENCOUNTER 2020-03-20 08:48 | Outpatient (REF) | payer OTHER, SELFPAY ==
--- NOTE | 2020-03-20 | US_ITS ---
EXAMINATION: US VENOUS ULTRASOUND WITH DOPPLER LOWER EXTREMITY, RIGHT CLINICAL INFORMATION: Right lower extremity edema. Assess for occult DVT. COMPARISON: None TECHNIQUE: Ultrasound of the deep veins is performed from the hip to the calf with compression sonography and color and pulse Doppler assessment. Spectral analysis with color-flow imaging is performed. FINDINGS: There is normal venous compression and respiratory variation and augmented flow. The visualized common femoral vein, superficial femoral vein, profunda femoral vein, popliteal vein, and the trifurcation region shows no evidence of deep venous thrombosis. No popliteal fossa cyst. There is edema in the calf subcutaneous soft tissues consistent with the clinical history. No loculated fluid collection demonstrated. US/US venous duplex LE RT IMPRESSION: No DVT demonstrated in the right lower extremity.
== END 2020-03-20 08:49 | disposition home or self-care (01) ==
LOC: HO.HMGCX 08:48
PROVIDERS: PCP Internal Medicine; Visit Provider Internal Medicine
DX: R60.0 Localized edema (principal)
CPT/HCPCS: 93971

== ENCOUNTER → 2020-04-03 08:36 | Outpatient (REF) | payer MEDICARE, SELFPAY ==
--- NOTE | 2020-04-03 | NM_ITS ---
Lexiscan Myocardial perfusion study Indication: Atrial fibrillation, congestive heart failure, evaluate for ischemia Technique: The patient was brought in for a Lexiscan perfusion study on 04/03/2020 and was injected 0.4 mg of Lexiscan intravenously. Within a minute of this injection 25 mCi of sestamibi was given intravenously. Images were obtained using the SPECT gamma camera interlaced with the gating device. Images were obtained in supine position. Resting perfusion study was performed on 04/04/2020. Patient was administered 25 mCi of sestamibi intravenously at rest. Images were then obtained in supine position. Total DLP 76mGy-cm. Images were processed with the software and compared side to side in short axis, horizontal long axis and vertical long axis views. Findings: Raw acquisition was reviewed. The stress perfusion study showed mildly diminished tracer uptake in the basal inferior wall. This improves with CT attenuation correction suggestive of diaphragmatic attenuation artifact. The gated study shows diminished LV systolic function with calculated LVEF of 34%. LV cavity is dilated in size. The gated study shows globally diminished wall thickening and contraction of segments. Resting study shows diminished tracer uptake in the basal inferior wall. With CT attenuation correction this improves suggestive of diaphragmatic attenuation artifact. Gating at rest reveals ejection fraction at 33%. The findings are consistent with no reversible or fixed perfusion defects. NM/NM glenis perf SPECT rest & str Impression: 1. Myocardial perfusion imaging study shows normal myocardial perfusion. No evidence of any ischemia or infarction. 2. Gated LVEF is 34% during stress and 33% during rest. 3. Transient ischemic dilatation not present but LV cavity is dilated. EKG component of the test reported separately.
--- NOTE | 2020-04-03 08:41 | ECG_ITS ---
Hook-up date: 2020-04-03 09:37:00 Duration: 23:12:00 Test Indications: CARDIOMYOPATHY, HEART FAILURE Medications: 931961 QRS complexes 5099 Ventricular ectopics which represent 3 % of total QRS comp. * Supraventricular ectopics which represent % of total QRS comp. * Paced QRS complexs which represent % of total QRS comp. VENTRICULAR ECTOPY 4680 Isolated 9 Bigeminal Cycles 195 Couplets 9 Runs 29 Beats in Runs 4 Beats LONGEST at 124 BPM at 11:32:29 2020-04-03 3 Beats FASTEST at 156 BPM at 20:17:17 2020-04-03 SUPRAVENTRICULAR ECTOPY * Isolated * Couplets * Runs * Beats in Runs * Beats LONGEST at * BPM at :: -- * Beats FASTEST at * BPM at :: -- HEART RATES 69 MIN at 02:30:36 2020-04-04 113 AVG 184 MAX at 05:42:20 2020-04-04 LONGEST RR 1.4720 secs at 02:22:15 2020-04-04 S-T LEVELS Channel 1 - 128 mm at 09:37:00 2020-04-03 - 128 mm at 09:37:00 2020-04-03 Channel 2 - 128 mm at 09:37:00 2020-04-03 - 128 mm at 09:37:00 2020-04-03 Channel 3 - 128 mm at 02:85:61 -- - 128 mm at 02:85:61 Underlying rhythm is atrial fibrillation; Average ventricular rate 113/min; range 69-184/min; About 68% of the time, ventricular rate >100/min; Frequent ventricular ectopy (3% of total beats); mostly isolated, some bigeminy, longest run 4 beats ; Patient diary not available for review. Referred By: Francisco Corral Overread By: MARTY RINALDI
--- NOTE | 2020-04-03 08:41 | CA_ITS ---
Acquisition Time: 2020-04-03 09:47:43 Total Exercise Time: 00:02:00 Test Indications: Abnormal ECG Medications: FUROSEMIDE METOPROLOL XARELTO VALSARTAN Protocol: LEXISCAN Max HR: 125 BPM 82% of Pred: 151 BPM Max BP: 118/066 mmHG Max Work Load: 1.0 METS Pharmacological stress test with Lexiscan injection, while sitting, without anginal symptoms, with isolated PVCs and multifocal ventricular cuplets, with normotensive response to injection, with nondiagnostic EKG for ischemia. Nuclear images pending. In recovery he reported sob and lightheadedness. At 6 min recovery he reported ongoing lightheadedness that was treated with Aminophylline 75 mg IVP to reverse Lexiscan, with improvement in symptom. Test reviewed with Dr Corral. Referred By: Francisco Corral Overread By: JA AZEVEDO
== END ==
LOC: HO.CARD 08:36
PROVIDERS: PCP Internal Medicine; Visit Provider Internal Medicine Cardiovascular Disease
DX: I42.9 Cardiomyopathy, unspecified (principal); I11.0 Hypertensive heart disease with heart failure; I50.9 Heart failure, unspecified; J90 Pleural effusion, not elsewhere classified
CPT/HCPCS: 78452; 93017; 93225; 93226; A9500; J0280; J2785

== ENCOUNTER → 2020-04-05 14:20 | Outpatient (BNVA) | payer MEDICARE, SELFPAY | PROVIDERS: PCP Internal Medicine; Visit Provider Internal Medicine Cardiovascular Disease | DX: I48.91 Unspecified atrial fibrillation (principal); I42.9 Cardiomyopathy, unspecified; I50.20 Unspecified systolic (congestive) heart failure | CPT/HCPCS: 93005; 99212 ==

== ENCOUNTER 2020-04-11 09:50 | Day surgery (SDC) | payer MEDICARE, SELFPAY ==
[2020-04-10 12:23] VITALS: BMI 24.5
[2020-04-11] VITALS (7 sets, daily range): BP systolic 108–135; BP diastolic 64–85; PULSE 62–110; RESP 16–20; TEMP 36.2–36.3; O2SAT 98–100
--- NOTE | 2020-04-11 08:46 | MHC.SHP ---
Pre-Procedural Eval Section A The patient is an INPATIENT: No Changes since office visit: Yes Patient answered all questions; No Cold of Flu in the past 2 weeks, No New Medical Problems and No Changes in Medication The History & Physical has been completed within 30 days and I have reviewed it.: Yes Section B Chief Complaint: afib Allergies: Allergies Allergy/AdvReac Type Severity Reaction Status Date / Time Penicillins Allergy Unknown Verified 03/03/20 01:30 Plan I have reviewed the history and physical and performed a pertinent physical examination on my patient. No changes have occurred unless specified.
--- NOTE | 2020-04-11 10:48 | HO.ANESPROP2 ---
[facility] Past Medical History Medical History (Updated 04/05/20 @ 15:28 by Francisco Corral MD) Cardiomyopathy Heart failure with reduced ejection fraction Hypertension New onset of congestive heart failure Family History Family History (Updated 04/05/20 @ 14:46 by Luh Quiñonez Richa) Father Cancer Mother No problems noted. Social History Social History Household Members: Family Housing: House Alcohol intake: current Alcohol intake frequency: 3 or more drinks per day Alcohol type: beer Smoking Status: Former smoker Smoked in Last 30 Days: No Use of substances other than those prescribed or required for medical reasons: No Advance Directives: Yes Advance Directives Information Provided: Yes Advance Directives on File: No Advance Directives Date on File: 04/11/20 service: Yes Current occupational status: retired Meds Allergies Allergy/AdvReac Type Severity Reaction Status Date / Time Penicillins Allergy Unknown Verified 03/03/20 01:30 Exam Exam Date and Time: April 11, 2020 1048 Height,Weight and Vital Signs: Height 5 ft 8 in Weight 73.028 kg Last Vital Signs Temp 97.1 F 04/11/20 10:40 Pulse 110 H 04/11/20 10:40 Resp 16 04/11/20 10:40 BP 135/83 04/11/20 10:40 Pulse Ox 98 04/11/20 10:40 Airway Mallampati Class: II (Missing multiple teeth) TM Dist: >3cm Neck ROM: Full Heart: irreg Lungs: BS BL Assessment and Plan Assessment Anesthesia Assessment: Anesthesia Plan Discussed and Chart Reviewed Final Anesthetic Review NPO: Yes (Sip water with medicine) ASA Class: III Final Preanesthetic Review: Meds/Allgs Chart Reviewed and Consent Obtained/Reviewed Patient Risk: Intermediate Procedure Risk: Intermediate Anesthetic Plan Anesthetic Plan: MAC: Disposition: Standard PACU
[2020-04-11] MEDS: Lactated Ringers 1,000 ML 100 ML IVCONT (10:52)
--- NOTE | 2020-04-11 12:12 | ECG_ITS ---
Test Reason : S/P CARDIOVERSION Blood Pressure : / mmHG Vent. Rate : 060 BPM Atrial Rate : 060 BPM P-R Int : 194 ms QRS Dur : 110 ms QT Int : 458 ms P-R-T Axes : 012 -05 008 degrees QTc Int : 458 ms Sinus rhythm with occasional Premature ventricular complexes Incomplete left bundle branch block Borderline ECG When compared with ECG of 03-MAR-2020 03:23, Sinus rhythm has replaced Atrial fibrillation Vent. rate has decreased BY 66 BPM Referred By: Francisco Corral Electronically Signed By:FRANCISCO CORRAL MD
--- NOTE | 2020-04-11 12:13 | HO.CARDIVERS ---
Cardioversion Procedure Note Cardioversion Date of Procedure: 04/11/2020 Ordering Provider: Myself Performing Provider: Myself Indication for Procedure: Persistent difficult control atrial fibrillation rate with symptoms Pre-Op Diagnosis: Persistent atrial fibrillation Post-Op Diagnosis: Sinus rhythm with PACs Performed with Transesophageal Echo: No History: See history and physical for details Consent: Verbal and Written consent was obtained from the patient before starting an oral anticoagulation confirmed. The patient was made aware of the risk benefits, 2nd opinion, alternatives. Procedure: After consent obtained, cardioversion pads were attached in AP configuration and the patient was sedated by the anesthesia team. Once adequate sedation achieved, patient was delivered 200 joules of synchronized energy in AP configuration Complications: None Impression: Converted successfully to sinus rhythm Recommendations: 1. Continue Xarelto 20 mg daily 2. Continue metoprolol therapy. 3. Avoid stimulants such as alcohol and caffeine 4. Follow up in the office in 2 weeks 5. EKG
--- NOTE | 2020-04-11 13:29 | HO.POSTANES ---
Post Anesthesia Evaluation Post Anesthesia Evaluation Vital Signs: Vital Signs Temp Pulse Resp BP Pulse Ox 04/11/20 12:56 97.4 F 75 18 121/75 100 04/11/20 12:41 62 18 111/85 100 04/11/20 12:26 64 16 109/64 100 04/11/20 12:21 62 18 108/66 100 04/11/20 12:16 70 18 114/70 100 04/11/20 12:11 97.4 F 73 20 112/64 100 04/11/20 10:40 97.1 F 110 H 16 135/83 98 Anesthesia: Monitored Mental Status: Awake Pain Control: Satisfactory Nausea/Vomiting: None Hydration: Adequate Anesthesia-Related Issues: No Anes. Related Issues
== END 2020-04-11 13:28 | disposition home or self-care (01) ==
PROVIDERS: PCP Internal Medicine; Visit Provider Internal Medicine Cardiovascular Disease
PROC: 5A2204Z Restoration of Cardiac Rhythm, Single (ICD-10-PCS; principal; 2020-04-11 11:30)
DX: I48.19 Other persistent atrial fibrillation (principal); Z79.01 Long term (current) use of anticoagulants; I11.0 Hypertensive heart disease with heart failure; I50.20 Unspecified systolic (congestive) heart failure; I42.9 Cardiomyopathy, unspecified; Z87.891 Personal history of nicotine dependence
CPT/HCPCS: 92960; 93005

== ENCOUNTER 2020-04-13 09:04 | Outpatient (REF) | payer MEDICARE, SELFPAY ==
[2020-04-13 11:12] LABS: MANUAL DIFF FLAG NO
[2020-04-13 11:37] LABS: Basophils Absolute Auto 0.1 X10*3/uL (0.0-0.2); Basophils Percent Auto 0.7 % (0-2); Eosinophils Absolute Auto 0.1 X10*3/uL (0.0-0.4); Eosinophils Percent Auto 1.3 % (0-4); Hematocrit 27.9 % (42-52); Hemoglobin 8.3 g/dl (14.0-18.0); Imm Gran Abs Auto 0.03 X10*3/uL (0.00-0.03); Imm Gran Pct Auto 0.4 % (0.0-0.4); Lymphocytes Absolute Auto 1.7 X10*3/uL (1.2-4.9); Lymphocytes Percent Auto 22.8 % (20-40); Mean Corpuscular HGB Conc 29.7 g/dl (31.0-36.0); Mean Corpuscular Hemoglobin 21.3 pg (27.0-33.0); Mean Corpuscular Volume 71.7 fL (80-98); Monocytes Absolute Auto 0.9 X10*3/uL (0.1-1.2); Monocytes Percent Auto 11.5 % (2-11); Neutrophils Absolute Auto 4.8 X10*3/uL (2.0-8.3); Neutrophils Percent Auto 63.3 % (45-73); Platelet Count 203 X10*3/uL (160-400); Red Blood Count 3.89 X10*6/uL (4.60-5.80); Red Cell Distribution Width 17.9 % (11.0-16.0); White Blood Count 7.5 X10*3/uL (4.8-10.8)
[2020-04-13 11:49] LABS: Alanine Aminotransferase 7 U/L (0-40); Albumin Level 3.8 g/dL (3.5-5.0); Alkaline Phosphatase 65 U/L (39-117); Anion Gap 14 (12-20); Aspartate Amino Transferase 12 U/L (5-37); Bilirubin Total 0.7 mg/dL (0.0-1.0); Blood Urea Nitrogen 33 mg/dL (9-16); Calcium 8.8 mg/dL (8.4-10.2); Carbon Dioxide 29 mmol/L (22-29); Chloride 99 mmol/L (96-108); Cholesterol 100 mg/dL; Estimated Glomerular Filt Rate 50; Glucose Fasting 104 mg/dL (60-99); HDL Cholesterol 32 mg/dL; LDL Cholesterol Calculated 61 mg/dl; Potassium 4.2 mmol/L (3.3-5.1); Sodium 138 mmol/L (135-145); Total Protein 7.2 g/dL (6.5-8.0); Triglycerides 37 mg/dL
[2020-04-13 12:08] LABS: Thyroid Stimulating Hormone 1.26 uIU/mL (0.32-4.0)
== END 2020-04-13 09:05 | disposition home or self-care (01) ==
LOC: HO.HMGCLDS 09:04
PROVIDERS: PCP Internal Medicine; Visit Provider Internal Medicine
DX: Z00.01 Encounter for general adult medical examination with abnormal findings (principal); I10 Essential (primary) hypertension; I48.0 Paroxysmal atrial fibrillation; I50.43 Acute on chronic combined systolic (congestive) and diastolic (congestive) heart failure; R60.0 Localized edema
CPT/HCPCS: 36415; 80053; 80061; 84443; 85025

== ENCOUNTER → 2020-04-18 09:44 | Outpatient (REF) | payer MEDICARE, SELFPAY ==
--- NOTE | 2020-04-18 14:49 | ECG_ITS ---
Hook-up date: 2020-04-18 11:41:00 Duration: 43:54:00 Test Indications: AFIB Medications: 421541 QRS complexes 06467 Ventricular ectopics which represent 9 % of total QRS comp. 554 Supraventricular ectopics which represent <1 % of total QRS comp. * Paced QRS complexs which represent % of total QRS comp. VENTRICULAR ECTOPY 06718 Isolated 2243 Bigeminal Cycles 414 Couplets 35 Runs 112 Beats in Runs 4 Beats LONGEST at 114 BPM at 12:29:19 2020-04-18 4 Beats FASTEST at 169 BPM at 12:39:40 2020-04-18 SUPRAVENTRICULAR ECTOPY 419 Isolated 38 Couplets 13 Runs 59 Beats in Runs 9 Beats LONGEST at 129 BPM at 16:43:44 2020-04-18 5 Beats FASTEST at 191 BPM at 08:15:57 2020-04-19 HEART RATES 64 MIN at 05:26:10 2020-04-19 83 AVG 146 MAX at 12:39:16 2020-04-18 LONGEST RR 0.9920 secs at 10:05:37 2020-04-19 S-T LEVELS Channel 1 - 128 mm at 11:41:00 2020-04-18 - 128 mm at 11:41:00 2020-04-18 Channel 2 - 128 mm at 11:41:00 2020-04-18 - 128 mm at 11:41:00 2020-04-18 Channel 3 - 128 mm at 03:10:01 -- - 128 mm at 03:10:01 Underlying rhythm is sinus; Frequent Premature ventricular complexes - 10% of total beats; 11,225 over 48 Hrs; variable morphology; Mostly isolated, with couplets, bigeminal cycles, short runs- longest 4 beats; Occasional PACs (<1%); No evidence of atrial fibrillation; Shortness of breath in patient diary seems to correlate with sinus rhythm/PVCs. Referred By: Francisco Corral Overread By: MARTY RINALDI
== END ==
LOC: HO.CARD 09:44
PROVIDERS: PCP Internal Medicine; Visit Provider Internal Medicine Cardiovascular Disease
DX: I48.91 Unspecified atrial fibrillation (principal)
CPT/HCPCS: 93226

== ENCOUNTER → 2020-05-03 13:57 | Outpatient (BNVA) | payer MEDICARE, SELFPAY | PROVIDERS: PCP Internal Medicine; Visit Provider Internal Medicine Cardiovascular Disease | DX: I48.0 Paroxysmal atrial fibrillation (principal); I11.0 Hypertensive heart disease with heart failure; I50.20 Unspecified systolic (congestive) heart failure; I34.0 Nonrheumatic mitral (valve) insufficiency | CPT/HCPCS: 93005; 99212 ==

== ENCOUNTER → 2020-05-25 14:19 | Outpatient (REF) | payer MEDICARE, SELFPAY ==
--- NOTE | 2020-05-25 14:22 | CA_ITS ---
Transthoracic Echocardiogram Patient (Last, First, Middle): Ambrocio Askew, Gender: Male Date of : 1950 Age: 69 Procedure Date: 05/25/2020 Procedure Type: Transthoracic Echocardiogram Location: OP Height: 172.72 cm Weight: 72.58 kg BSA: 1.86 m2 Heart Rate: bpm BP: 125 / 68 mmHg Manufacturing Management Associate: ASIF Referring MD: Francisco Corral MD Av Specialist: Francisco Corral MD Symptoms: R06.02 - Shortness of breath Study Quality: Fair ECG Rhythm: Sinus with extra beats Conclusions: - 1. Low normal LV systolic function 2. Dilated right ventricle with low normal RV systolic function 3. Severely dilated left atrium 4. Moderate to severe eccentric mitral regurgitation 5. Normal calculated RV systolic pressure 6. No pericardial effusion Findings Left Ventricle Normal left ventricular cavity size. There is normal left ventricular wall thickness. The left ventricular systolic function is low normal. The visually estimated ejection fraction is between 50-55%. Diastolic function is indeterminate on the basis of available data. Right Ventricle Mildly increased right ventricular cavity size. There is borderline right ventricular systolic function. Atria The left atrium is severely dilated. Interatrial shunt cannot be excluded. The right atrium is mildly dilated. Aortic Valve The aortic valve structure and function is likely normal. There is no aortic valve stenosis. There is no aortic valve regurgitation. Mitral Valve Likely normal mitral valve structure and function. There is mild anterior and moderate posterior mitral leaflet thickening. There is moderate to severe mitral valve regurgitation. There is no mitral valve stenosis. Pulmonic Valve The pulmonic valve was not well visualized. Tricuspid Valve Likely normal tricuspid valve structure and function. There is trace tricuspid valve regurgitation. The right ventricular systolic pressure is normal. The right ventricular systolic pressure is 28 mmHg. Normal right atrial pressure. There is no evidence of pulmonary hypertension. Great Vessels All visible segments of the aorta are normal in size. The pulmonary artery was not well visualized. Venous The inferior vena cava is normal in size and collapses greater than 50% with inspiration. Pericardium/Pleural There is no evidence of pericardial effusion. Prior Study Comparison Significant changes compared to prior study dated: 03/03/2020. LV systolic function significantly improved. RV systolic pressure is improved Measurements 2D Linear Measurements IVSd: 1.15 0.6-0.9/0.6-1.0 cm LVIDd: 5.28 3.9-5.3/4.2-5.9 cm LVIDd Index: 2.84 2.4-3.2/2.2-3.1 cm/m2 LVIDs: 3.79 2.0-3.6 cm LVPWd: 1.15 0.7-1.1 cm Ao Root: 2.80 2.1-3.5 cm LA Diam: 4.00 2.7-3.8/3.0-4.0 cm LAIDs Index: 2.15 1.5-2.3 cm/m2 LV Mass: 299.85 67-162/88-224 g LV Mass Index: 161.21 43-95/49-115 g/m2 LVOT Diam: 2.30 3.0+(-)1.3 cm 2D Systolic Function EF 4C: 41.90 >55% EF 2C: 47.50 >55% Mitral Valve MV VTI: 0.28 MV Pk Willie: 1.35 MV Mn Willie: 0.61 MV Pk Grad: 7.00 MV Mn Grad: 2.00 MV Pk E: 0.83 MV Decel Time: 190.00 E'Lateral: 13.60 E'Medial: 8.12 E/E' Med: 10.30 E/E' Lat: 6.10 PHT: 56.00 MVA PHT: 3.93 MVA Continuity: 2.51 Decel Ashley: 4.39 MR Vol - PW Dopp: 29.82 MR VTI: 0.96 MR ERO: 31.00 MR Alias Willei: 0.59 MR RAD: 0.50 Aortic Valve AoV Pk Willie: 1.12 AoV Mn Willie: 0.71 AoV VTI: 0.21 AoV Pk Grad: 5.00 Aov Mn Grad: 3.00 CED Cont.VTI: 3.32 LVOT LVOT Pk Willie: 0.78 LVOT Mn Willie: 0.50 LVOT VTI: 0.17 LVOT Pk Grad: 2.00 LVOT Mn Grad: 1.00 LVOT Diam: 2.30 LVOT Area: 4.15 Diastolic Function MV Pk E: 0.83 E'Medial: 8.12 E/E' Med: 10.30 E' Laterial: 13.60 E/E' Lat: 6.10 Tricuspid Valve TR Pk Willie: 2.51 TR Pk Grad: 25.00 RA Press: 3.00 RVSP: 28.00 Great Vessels Aorta Ao Root-2D: 2.80 2.0-3.7 cm Ao Asc: 2.80 2.1-3.4 cm Pulmonary Valve PV Pk Willie: 0.88 Peak PV Grad: 3.00 Updated in Other Vendor System with Status of Final Francisco Corral MD electronically signed on 05/26/2020 2:37:26 PM with status of Final
== END ==
LOC: HO.CARD 14:19
PROVIDERS: Visit Provider Internal Medicine Cardiovascular Disease
DX: R06.02 Shortness of breath (principal); I34.0 Nonrheumatic mitral (valve) insufficiency; I48.0 Paroxysmal atrial fibrillation; I50.20 Unspecified systolic (congestive) heart failure; I42.9 Cardiomyopathy, unspecified
CPT/HCPCS: 93306

== ENCOUNTER → 2020-05-31 13:08 | Outpatient (BNVA) | payer MEDICARE, SELFPAY | PROVIDERS: PCP Internal Medicine; Visit Provider Internal Medicine Cardiovascular Disease | DX: I34.0 Nonrheumatic mitral (valve) insufficiency (principal); I48.0 Paroxysmal atrial fibrillation; I50.20 Unspecified systolic (congestive) heart failure | CPT/HCPCS: 99212 ==

== ENCOUNTER 2020-06-21 04:10 | Inpatient (IN) | payer MEDICARE, SELFPAY ==
[2020-06-21] VITALS (16 sets, daily range): BP systolic 132–147; BP diastolic 48–68; PULSE 60–77; RESP 12–17; TEMP 36.3–37.2; O2SAT 97–100; BMI 25.2
--- NOTE | 2020-06-21 | ECG_ITS ---
Test Reason : SYNCOPE Blood Pressure : / mmHG Vent. Rate : 073 BPM Atrial Rate : 073 BPM P-R Int : 168 ms QRS Dur : 094 ms QT Int : 402 ms P-R-T Axes : 100 001 040 degrees QTc Int : 442 ms Sinus rhythm with Premature atrial complexes Otherwise normal ECG When compared to the previous EKG of Premature atrial complexes Present Premature ventricular complexes not present Referred By: Ladarius Gutiérrez Electronically Signed By:Michael Wilkerson
--- NOTE | ~2020-06-21 | XR_ITS ---
EXAMINATION: XR HAND, RIGHT CLINICAL INFORMATION: Pain COMPARISON: None TECHNIQUE: PA, lateral, and oblique views of the right hand. FINDINGS: There is no acute or healing fracture, dislocation, destructive process. Bony mineralization is normal. The ulnar variance is neutral. There is fine chondrocalcinosis in the region of the triangular fibrocartilage and lunotriquetral ligament. There are degenerative changes lateral carpus at the triscaphe joint with joint narrowing and mild subchondral sclerosis and spurring. No erosive change. Mild narrowing third MCP joints with dorsal medial spurring metacarpal head. No erosive changes. There is mild spurring lateral aspect interphalangeal joint thumb and some degenerative changes DIP joints with spurring base distal phalanges, greatest third and fifth fingers. XR/XR hand RT min 3V IMPRESSION: 1. Chondrocalcinosis triangular fibrocartilage and lunotriquetral ligament. 2. Joint narrowing and degenerative changes lateral carpus at triscaphe joint. 3. Spurring interphalangeal joints, third MCP joint, and DIP joints, greatest third and fifth fingers. No erosive arthropathy.
--- NOTE | ~2020-06-21 | CT_ITS ---
JELENA GAYTAN ACC# [id number] ACC# [id number] MRN: [id number] EXAMINATIONS: CT HEAD WITHOUT CONTRAST AND CT CERVICAL SPINE WITHOUT CONTRAST CLINICAL INFORMATION: Fall. Loss of consciousness. Pain. Tingling. COMPARISON: None. TECHNIQUE: Contiguous helical images of the brain were obtained without IV contrast. Contiguous helical images of the cervical spine were obtained without IV contrast. Multiplanar reconstructions were performed. DLP: 1211 mGy-cm. FINDINGS: There are no pathologic extra-axial fluid collections. The lateral, third, fourth ventricles are nondilated and concordant with the appearance of the sulci. There is no evidence for acute intraparenchymal hemorrhage or infarct. There is neither mass nor mass effect. There is no shift of midline structures. The paranasal sinuses and mastoid air cells are clear. There are no osseous lesions. The cervical vertebra are in normal alignment. Vertebral body heights are well-preserved. There is multilevel disc height loss with anterior osteophyte formation. There are no fractures. There is no prevertebral soft tissue swelling. There is no cervical lymphadenopathy. The visualized lung apices are clear. CT/CT head/brain wo con IMPRESSION: No evidence for acute intracranial injury. No evidence for acute injury to the cervical spine. Automated exposure control (Care Dose) Adjustment of the mA and/or kv according to patient size (this includes techniques or standardized protocols for targeted exams where dose is matched to indication / reason for exam; i.e. extremities or head).
--- NOTE | ~2020-06-21 | CT_ITS ---
JELENA GAYTAN ACC [id number] ACC [id number] MRN: [id number] EXAMINATION: CT CHEST, ABDOMEN AND PELVIS WITH CONTRAST CLINICAL INFORMATION: Pain. Trauma. COMPARISON: None. TECHNIQUE: Contiguous axial thin section helical images of the chest, abdomen and pelvis were performed following the administration of oral contrast and 100 mL of intravenous Ultravist 300. The data set was reformatted in the coronal and sagittal planes and reviewed on an independent workstation. DLP: 1115 mGy-cm. FINDINGS: The heart is of normal size. There is no pericardial effusion. There is neither mediastinal, hilar nor axillary lymphadenopathy. There are no chest wall masses. Review of lung windows demonstrates that there are neither pleural effusions nor pneumothoraces. There are no consolidations. There are no pulmonary parenchymal nodules. The liver is of normal size and attenuation without focal lesions nor intrahepatic biliary ductal dilation. There is mild subcapsular nodularity. There are calculi within the gallbladder lumen. There is no wall thickening or discernible pericholecystic fluid. The spleen, pancreas, adrenal glands are unremarkable. Both kidneys are of normal size and attenuation without hydronephrosis or nephrolithiasis. Following the administration of IV contrast, prompt symmetric nephrograms are displayed. There is no abdominal free fluid. There is neither mesenteric nor retroperitoneal lymphadenopathy. There is sigmoid diverticulosis without active diverticulitis; otherwise, unremarkable opacified loops of small and large bowel are identified. A normal appendix is identified. There is no pelvic free fluid. The urinary bladder is unremarkable. There is neither pelvic nor inguinal lymphadenopathy. Bone windows: Neither sclerotic nor lytic bone lesions are identified. CT/CT chest wo con IMPRESSION: No CT evidence for acute traumatic injury to the thorax, abdomen or pelvis. Cholelithiasis without evidence of cholecystitis. Diverticulosis without evidence of diverticulitis. No intrahepatic mass lesions, though there is subcapsular nodularity. Automated exposure control (Care Dose) Adjustment of the mA and/or kv according to patient size (this includes techniques or standardized protocols for targeted exams where dose is matched to indication / reason for exam; i.e. extremities or head).
--- NOTE | ~2020-06-21 | CT_ITS ---
JELENA GAYTAN ACC [id number] ACC [id number] MRN: [id number] EXAMINATION: CT CHEST, ABDOMEN AND PELVIS WITH CONTRAST CLINICAL INFORMATION: Pain. Trauma. COMPARISON: None. TECHNIQUE: Contiguous axial thin section helical images of the chest, abdomen and pelvis were performed following the administration of oral contrast and 100 mL of intravenous Ultravist 300. The data set was reformatted in the coronal and sagittal planes and reviewed on an independent workstation. DLP: 1115 mGy-cm. FINDINGS: The heart is of normal size. There is no pericardial effusion. There is neither mediastinal, hilar nor axillary lymphadenopathy. There are no chest wall masses. Review of lung windows demonstrates that there are neither pleural effusions nor pneumothoraces. There are no consolidations. There are no pulmonary parenchymal nodules. The liver is of normal size and attenuation without focal lesions nor intrahepatic biliary ductal dilation. There is mild subcapsular nodularity. There are calculi within the gallbladder lumen. There is no wall thickening or discernible pericholecystic fluid. The spleen, pancreas, adrenal glands are unremarkable. Both kidneys are of normal size and attenuation without hydronephrosis or nephrolithiasis. Following the administration of IV contrast, prompt symmetric nephrograms are displayed. There is no abdominal free fluid. There is neither mesenteric nor retroperitoneal lymphadenopathy. There is sigmoid diverticulosis without active diverticulitis; otherwise, unremarkable opacified loops of small and large bowel are identified. A normal appendix is identified. There is no pelvic free fluid. The urinary bladder is unremarkable. There is neither pelvic nor inguinal lymphadenopathy. Bone windows: Neither sclerotic nor lytic bone lesions are identified. CT/CT abdomen pelvis wo con IMPRESSION: No CT evidence for acute traumatic injury to the thorax, abdomen or pelvis. Cholelithiasis without evidence of cholecystitis. Diverticulosis without evidence of diverticulitis. No intrahepatic mass lesions, though there is subcapsular nodularity. Automated exposure control (Care Dose) Adjustment of the mA and/or kv according to patient size (this includes techniques or standardized protocols for targeted exams where dose is matched to indication / reason for exam; i.e. extremities or head).
--- NOTE | ~2020-06-21 | XR_ITS ---
JELENA GAYTAN ACC# [id number] MRN [id number] EXAMINATION: LEFT HAND 3 VIEWS CLINICAL INFORMATION: Pain after fall. COMPARISON: None. TECHNIQUE: PA, lateral, oblique views of the left hand were obtained. FINDINGS: There are no fractures or dislocations. There is no significant soft tissue swelling. Incidental note is made of clinodactyly. There is moderate degenerative change at the first carpal-metacarpal joint. XR/XR hand LT min 3V IMPRESSION: No evidence for acute injury.
--- NOTE | ~2020-06-21 | MR_ITS ---
EXAMINATION: MR CERVICAL SPINE WITHOUT CONTRAST CLINICAL INFORMATION: Fall with bilateral arm pain and numbness. Assess for contusion. COMPARISON: There are no prior studies available for comparison. TECHNIQUE: MRI of the cervical spine was obtained using routine sequences without contrast. FINDINGS: VERTEBRAL BODIES AND PARASPINAL SOFT TISSUES: There is reversal of the normal cervical lordosis. There is narrowing of intervertebral disc height at C3-C4, C4-C5, C5-C6 and in the thoracic spine at T2-T3 and T3-T4. There are degenerative endplate contrast changes at these levels with mild edematous signal at C3-C4, C4-C5 and T2-T3. There are no acute fractures and vertebral body heights are maintained. The paraspinal soft tissues appear normal. CERVICOMEDULLARY JUNCTION AND VISUALIZED POSTERIOR FOSSA: The craniocervical structures are normal. There are areas of increased T2 and STIR signal in the ruthie, which are most consistent with chronic microvascular ischemic changes. There is a small focus of increased signal within the spinal cord at the level of the upper body of C5 on the right. SPINAL LEVELS: C2-C3: There is no spinal cord compression or central stenosis. The neural foramina are patent. C3-C4: There is a posterior disc protrusion which is more prominent on the right which distorts the ventral thecal sac and spinal cord. There is mild central stenosis. There are bilateral uncovertebral osteophytes, and there is severe bilateral foraminal narrowing. C4-C5: There is moderate bilateral facet arthropathy. There is a prominent posterior disc osteophyte complex which is slightly more prominent to the left of midline. There is mild flattening of the spinal cord and there is effacement of CSF in the spinal canal. There is moderate central stenosis. There are uncovertebral osteophytes. There is severe left and moderate to severe right foraminal narrowing. C5-C6: The facet joints appear normal. There is a posterior disc protrusion which is slightly more focal to the right of midline. There is effacement of CSF ventral to the spinal cord, but there is no spinal cord compression or central stenosis. There are uncovertebral osteophytes. There is moderate to severe bilateral foraminal narrowing. C6-C7: There is mild right facet arthropathy. There is a posterior disc protrusion which distorts the ventral thecal sac but there is no spinal cord compression or central stenosis. There are uncovertebral osteophytes. There is moderate bilateral foraminal narrowing. C7-T1: There is no spinal cord compression or central stenosis. The neural foramina are patent. T2-T3: There is a posterior disc osteophyte complex with mild effacement of CSF ventral to the spinal cord, but there is no spinal cord impression or central stenosis. The neural foramina are patent bilaterally. T3-T4: On the sagittal images there is a small disc protrusion posteriorly with mild distortion of the ventral thecal sac. There is no spinal cord compression or central stenosis. The neural foramina are patent bilaterally. MR/MR cervical spine wo con IMPRESSION: 1. There are no acute fractures or subluxations. The paraspinal soft tissues appear normal. 2. There is multilevel spondylosis with narrowing of intervertebral disc height in the cervical spine as well as in the upper thoracic spine. There is severe bilateral foraminal narrowing at C3-C4. There is severe left and moderate to severe right foraminal narrowing at C4-C5, and there is moderate to severe bilateral foraminal C5-C6. There is some effacement of CSF around the cord with distortion of the cord at C4-C5 and there is moderate central stenosis at this level. 3. There is a small focus of increased signal within the spinal cord at the level of C5 on the right, which very consistent with a small focus of edema or evolving myelomalacia.
--- NOTE | ~2020-06-21 | CT_ITS ---
JELENA GAYTAN ACC# [id number] ACC# [id number] MRN: [id number] EXAMINATIONS: CT HEAD WITHOUT CONTRAST AND CT CERVICAL SPINE WITHOUT CONTRAST CLINICAL INFORMATION: Fall. Loss of consciousness. Pain. Tingling. COMPARISON: None. TECHNIQUE: Contiguous helical images of the brain were obtained without IV contrast. Contiguous helical images of the cervical spine were obtained without IV contrast. Multiplanar reconstructions were performed. DLP: 1211 mGy-cm. FINDINGS: There are no pathologic extra-axial fluid collections. The lateral, third, fourth ventricles are nondilated and concordant with the appearance of the sulci. There is no evidence for acute intraparenchymal hemorrhage or infarct. There is neither mass nor mass effect. There is no shift of midline structures. The paranasal sinuses and mastoid air cells are clear. There are no osseous lesions. The cervical vertebra are in normal alignment. Vertebral body heights are well-preserved. There is multilevel disc height loss with anterior osteophyte formation. There are no fractures. There is no prevertebral soft tissue swelling. There is no cervical lymphadenopathy. The visualized lung apices are clear. CT/CT cervical spine wo con IMPRESSION: No evidence for acute intracranial injury. No evidence for acute injury to the cervical spine. Automated exposure control (Care Dose) Adjustment of the mA and/or kv according to patient size (this includes techniques or standardized protocols for targeted exams where dose is matched to indication / reason for exam; i.e. extremities or head).
[2020-06-21 07:08] LABS: Alanine Aminotransferase 6 U/L (0-40); Albumin Level 3.6 g/dL (3.5-5.0); Alkaline Phosphatase 67 U/L (39-117); Anion Gap 15 (12-20); Aspartate Amino Transferase 15 U/L (5-37); Bilirubin Direct 0.3 mg/dL (0.0-0.5); Bilirubin Total 0.5 mg/dL (0.0-1.0); Blood Urea Nitrogen 31 mg/dL (9-16); Calcium 8.5 mg/dL (8.4-10.2); Carbon Dioxide 22 mmol/L (22-29); Chloride 104 mmol/L (96-108); Estimated Glomerular Filt Rate 57; Ethanol < 10 mg/dL; Lipase 23 U/L (8-78); Magnesium 1.9 mg/dL (1.6-2.6); Potassium 4.6 mmol/L (3.3-5.1); Sodium 136 mmol/L (135-145); Total Protein 6.8 g/dL (6.5-8.0)
[2020-06-21 07:10] LABS: Troponin-I High Sensitivity 7.9 ng/L (<3.5-35.0)
--- NOTE | 2020-06-21 07:16 | ED_ITS ---
HPI - Fall General Chief Complaint: Fall Time Seen by Provider: 06/21/20 06:57 Source: patient and EMS Mode of arrival: EMS Limitations: other (poor historian ) History of Present Illness HPI Narrative: 69 yo male with ETOH abuse, afib on xarelto notes he drank 3 beers yesterday was in his garage around 230pm then at 430pm woke up and noted trauma to his face and UE pain - + LOC, cannot remember events, stayed at home but then overnight noted increased bilateral UE pain so came to ED, in cervical collar on arrival MD complaint: fall Onset (ago): day(s) (yesterday 230pm) Fall from: standing Fall witnessed: no Place fall occurred: home Loss of consciousness: yes Prolonged down time: unclear Symptoms prior to fall: none Location of injury: head and face Location of injury - extremities: right: arm Severity: moderate Quality: burning and dull Associated symptoms (after fall): numbness, weakness and other (NOTES BLACK STOOLS X 1 WEEK HAS BEEN TAKING IBUPROFEN DAILY) Related Data Previous Rx's Medication Instructions Recorded furosemide 20 mg tablet 20 mg PO .as needed PRN #20 tab 05/03/20 rivaroxaban 20 mg tablet 20 mg PO QPM #30 tab 05/03/20 metoprolol succinate 100 mg 100 mg PO DAILY #90 tab 06/12/20 tablet,extended release 24 hr valsartan 80 mg tablet 80 mg PO DAILY #90 tab 06/12/20 Allergies Allergy/AdvReac Type Severity Reaction Status Date / Time Penicillins Allergy Unknown Verified 03/03/20 01:30 Review of Systems Review of Systems: Constitutional : No Fever, No Chills ENT/Mouth : No Ear Pain, No Hoarseness, No sore throat Eyes: No Eye Pain, No Swelling, No Redness, No Foreign Body Cardiovascular : No Chest Pain, No SOB Respiratory : No Cough, No Dyspnea Gastrointestinal : No Nausea, No Vomiting, No Diarrhea, No abdominal Pain Genitourinary : No Dysuria, No Hematuria Musculoskeletal : positive joint pain, No Myalgias, No Joint Swelling Skin : No Skin lacerations, No rash Neuro : pos Weakness, pos Numbness, No Loss of Consciousness, No Dizziness, No Headache Psych : No Anxiety/Panic, No Depression Heme/Lymph: no easy bruising, no Lymphadenopathy Endocrine : No Polyuria, No Polydipsia All other systems reviewed and are negative [facility] Past Medical History Attestation statement: The following information was validated with the patient. Medical History Cardiomyopathy Heart failure with reduced ejection fraction Hypertension Mitral regurgitation New onset of congestive heart failure Paroxysmal atrial fibrillation Family History Family History (Updated 04/05/20 @ 14:46 by FAZAL Patel) Father Cancer Mother No problems noted. Social History Social History Household Members: Family Housing: House Alcohol intake: current Alcohol intake frequency: 0-2 drinks per day Alcohol type: beer Smoking Status: Never smoker Use of substances other than those prescribed or required for medical reasons: No Advance Directives: No Advance Directives Information Provided: No Advance Directives Date on File: 04/11/20 service: Yes Current occupational status: retired Physical Exam Vital Signs: Vital Signs: Last Vital Signs Temp 98.1 F 06/21/20 07:03 Pulse 75 06/21/20 07:26 Resp 16 06/21/20 07:26 BP 137/53 L 06/21/20 07:26 Pulse Ox 99 06/21/20 07:26 Body Mass Index 25.2 Appearance: Alert. Oriented X3. No acute distress. Eyes: Pupils equal, round and reactive to light. ENT: Pharynx normal. Bruising on nose, R periorbital area Neck: in collar, denies midline ttp CVS: Normal heart rate and rhythm. Pulses normal. Respiratory: No respiratory distress. Breath sounds normal. Abdomen: Soft and nontender. Rectal: normal tone, brown stool Skin: Skin warm and dry. pale skin color. Normal skin turgor. Extremities: No lower extremity edema. No calf ttp bilateral hands L and R MCPs mild swelling and ttp Neuro: Oriented X 3. bilateral surveillance dual rate officer 4/5 2+ distal radial pulses, reports tingling in bilateral fingers but gross sensation intact bilaterally Course Course Course Narrative: no acute traumatic findings, guiac negative but drop in H/H and reported black stools will transfuse 2UPRBCs and start on protonix gtt negative CT scans for trauma but reported UE issues will obtain cervical spine MRI for contusion/myelopathy signed out to Dr. Claros pending workup MDM - Fall MDM Narrative Medical decision making narrative: 69 yo male with a fall on xarelto likely after drinking ETOH also notes that he has had black stools - c/o UE pain and tingling will need labs, CT scans of head/neck/chest/abdomen for trauma, guiac, EKG, reports LOC, unknown downtime woke up at 430pm and he believes he fell at 230pm. dispo per results and findings. Lab Data Result diagrams: 06/21/20 05:10 06/21/20 05:10 Labs: Lab Results 06/21/20 06/21/20 06/21/20 Range/Units 05:10 05:10 05:10 WBC (4.8-10.8) X10*3/uL RBC (4.60-5.80) X10*6/uL Hgb (14.0-18.0) g/dl Hct (42-52) % MCV (80-98) fL MCH (27.0-33.0) pg MCHC (31.0-36.0) g/dl RDW (11.0-16.0) % Plt Count (160-400) X10*3/uL MPV (9.4-12.4) fL Immature Gran % (Auto) (0.0-0.4) % Neut % (Auto) (45-73) % Lymph % (Auto) (20-40) % [place] % (Auto) (2-11) % Eos % (Auto) (0-4) % Baso % (Auto) (0-2) % Lymph # (Auto) (1.2-4.9) X10*3/uL [place] # (Auto) (0.1-1.2) X10*3/uL Eos # (Auto) (0.0-0.4) X10*3/uL Baso # (Auto) (0.0-0.2) X10*3/uL Abs Immat Gran (auto) (0.00-0.03) X10*3/uL Absolute Neuts (auto) (2.0-8.3) X10*3/uL Absolute Nucleated RBC (0.0-0.012) X10*3/uL Nucleated RBC % (auto) (0.0-0.2) /100WBC PT (10.8-13.0) SEC INR (0.9-1.1) APTT (24.1-38.0) SEC Sodium 136 (135-145) mmol/L Potassium 4.6 (3.3-5.1) mmol/L Chloride 104 (96-108) mmol/L Carbon Dioxide 22 (22-29) mmol/L Anion Gap 15 (12-20) BUN 31 H (9-16) mg/dL Creatinine 1.26 (0.5-1.4) mg/dL Estim Creat Clear Calc TNP Estimated GFR 57 Calcium 8.5 (8.4-10.2) mg/dL Magnesium 1.9 (1.6-2.6) mg/dL Total Bilirubin 0.5 (0.0-1.0) mg/dL Direct Bilirubin 0.3 (0.0-0.5) mg/dL AST 15 (5-37) U/L ALT 6 (0-40) U/L Alkaline Phosphatase 67 (39-117) U/L Total Creatine Kinase 153 (38-174) U/L Troponin I High Sens 7.9 D (<3.5-35.0) ng/L Total Protein 6.8 (6.5-8.0) g/dL Albumin 3.6 (3.5-5.0) g/dL Lipase 23 (8-78) U/L Stool Occult Blood (NEGATIVE) Ethyl Alcohol < 10 mg/dL Blood Type Antibody Screen Crossmatch 06/21/20 06/21/20 06/21/20 Range/Units 05:10 05:10 06:15 WBC 5.4 (4.8-10.8) X10*3/uL RBC 2.99 L D (4.60-5.80) X10*6/uL Hgb 6.2 L* D (14.0-18.0) g/dl Hct 21.4 L D (42-52) % MCV 71.6 L (80-98) fL MCH 20.7 L (27.0-33.0) pg MCHC 29.0 L (31.0-36.0) g/dl RDW 17.0 H (11.0-16.0) % Plt Count 175 (160-400) X10*3/uL MPV 9.2 L (9.4-12.4) fL Immature Gran % (Auto) 0.4 (0.0-0.4) % Neut % (Auto) 63.1 (45-73) % Lymph % (Auto) 24.1 (20-40) % [place] % (Auto) 10.7 (2-11) % Eos % (Auto) 1.1 (0-4) % Baso % (Auto) 0.6 (0-2) % Lymph # (Auto) 1.3 (1.2-4.9) X10*3/uL [place] # (Auto) 0.6 (0.1-1.2) X10*3/uL Eos # (Auto) 0.1 (0.0-0.4) X10*3/uL Baso # (Auto) 0.0 (0.0-0.2) X10*3/uL Abs Immat Gran (auto) 0.02 (0.00-0.03) X10*3/uL Absolute Neuts (auto) 3.4 (2.0-8.3) X10*3/uL Absolute Nucleated RBC 0.000 (0.0-0.012) X10*3/uL Nucleated RBC % (auto) 0.0 (0.0-0.2) /100WBC PT 12.6 D (10.8-13.0) SEC INR 1.1 (0.9-1.1) APTT 31.7 (24.1-38.0) SEC Sodium (135-145) mmol/L Potassium (3.3-5.1) mmol/L Chloride (96-108) mmol/L Carbon Dioxide (22-29) mmol/L Anion Gap (12-20) BUN (9-16) mg/dL Creatinine (0.5-1.4) mg/dL Estim Creat Clear Calc Estimated GFR Calcium (8.4-10.2) mg/dL Magnesium (1.6-2.6) mg/dL Total Bilirubin (0.0-1.0) mg/dL Direct Bilirubin (0.0-0.5) mg/dL AST (5-37) U/L ALT (0-40) U/L Alkaline Phosphatase (39-117) U/L Total Creatine Kinase (38-174) U/L Troponin I High Sens (<3.5-35.0) ng/L Total Protein (6.5-8.0) g/dL Albumin (3.5-5.0) g/dL Lipase (8-78) U/L Stool Occult Blood (NEGATIVE) Ethyl Alcohol mg/dL Blood Type O Positive Antibody Screen NEGATIVE Crossmatch See Detail 06/21/20 Range/Units 06:15 WBC (4.8-10.8) X10*3/uL RBC (4.60-5.80) X10*6/uL Hgb (14.0-18.0) g/dl Hct (42-52) % MCV (80-98) fL MCH (27.0-33.0) pg MCHC (31.0-36.0) g/dl RDW (11.0-16.0) % Plt Count (160-400) X10*3/uL MPV (9.4-12.4) fL Immature Gran % (Auto) (0.0-0.4) % Neut % (Auto) (45-73) % Lymph % (Auto) (20-40) % [place] % (Auto) (2-11) % Eos % (Auto) (0-4) % Baso % (Auto) (0-2) % Lymph # (Auto) (1.2-4.9) X10*3/uL [place] # (Auto) (0.1-1.2) X10*3/uL Eos # (Auto) (0.0-0.4) X10*3/uL Baso # (Auto) (0.0-0.2) X10*3/uL Abs Immat Gran (auto) (0.00-0.03) X10*3/uL Absolute Neuts (auto) (2.0-8.3) X10*3/uL Absolute Nucleated RBC (0.0-0.012) X10*3/uL Nucleated RBC % (auto) (0.0-0.2) /100WBC PT (10.8-13.0) SEC INR (0.9-1.1) APTT (24.1-38.0) SEC Sodium (135-145) mmol/L Potassium (3.3-5.1) mmol/L Chloride (96-108) mmol/L Carbon Dioxide (22-29) mmol/L Anion Gap (12-20) BUN (9-16) mg/dL Creatinine (0.5-1.4) mg/dL Estim Creat Clear Calc Estimated GFR Calcium (8.4-10.2) mg/dL Magnesium (1.6-2.6) mg/dL Total Bilirubin (0.0-1.0) mg/dL Direct Bilirubin (0.0-0.5) mg/dL AST (5-37) U/L ALT (0-40) U/L Alkaline Phosphatase (39-117) U/L Total Creatine Kinase (38-174) U/L Troponin I High Sens (<3.5-35.0) ng/L Total Protein (6.5-8.0) g/dL Albumin (3.5-5.0) g/dL Lipase (8-78) U/L Stool Occult Blood NEGATIVE (NEGATIVE) Ethyl Alcohol mg/dL Blood Type Antibody Screen Crossmatch ECG Data Attestation: I personally reviewed and interpreted this ECG as follows: ECG interpretation date: 06/21/20 Interpretation: Rate: 73 Rhythm: NSR with PACs Embarrass: normal Normal P waves. Normal PHOEBE. Normal QRS complex. ST T wave : nonspecific, no SIMÓN qTC:normal prior studies: no acute ischemia The study has been interpreted contemporaneously by me. . Critical Care Time Critical Care Time Critical Care Time: Yes Total Critical Care Time: 60 Attestation: transfusion, trauma scans, IV morphine for pain I attest to this time spent taking care of the patient Discharge Plan Discharge Clinical Impression: Contusion Qualifiers: Encounter type: initial encounter Contusion area: head Contusion of head detail: orbital tissues Laterality: right Qualified Code(s): S05.11XA - C ontusion of eyeball and orbital tissues, right eye, initial encounter Fall Qualifiers: Encounter type: initial encounter Qualified Code(s): W19.XXXA - Unspecified fall, initial encounter Upper arm pain Qualifiers: Laterality: bilateral Qualified Code(s): M79.621 - Pain in right upper arm Anemia Qualifiers: Anemia type: unspecified type Qualified Code(s): D64.9 - Anemia, unspecified Prescriptions: No Action metoprolol succinate [Toprol XL] 100 mg tablet extended release 24 hr 100 mg PO DAILY Qty: 90 RF: 1 valsartan 80 mg tablet 80 mg PO DAILY Qty: 90 RF: 1 Xarelto 20 mg tablet 20 mg PO QPM Qty: 30 RF: 2 furosemide [Lasix] 20 mg tablet 20 mg PO .as needed PRN (Reason: edema) Qty: 20 RF: 2
[2020-06-21 07:17] LABS: MANUAL DIFF FLAG NO
--- NOTE | 2020-06-21 07:21 | PC.NURSE ---
Report recieved from Delores PATTERSON. Patient is awake, alert, and oriented. Skin PWD w/ abrasion to forehead above left eye. bruising around both eyes. c collar remains in place. patient complains of pain and tingling to both hands, positive CSM. second IV started in right forearm and patient medicated w/ protonix as ordered. waiting for protonix infusion from pharmacy. Patient aware and agreeable to plan for blood transfusion, MRI and admission.
[2020-06-21 07:22] LABS: Basophils Percent Auto 0.6 % (0-2); Eosinophils Absolute Auto 0.1 X10*3/uL (0.0-0.4); Eosinophils Percent Auto 1.1 % (0-4); Imm Gran Abs Auto 0.02 X10*3/uL (0.00-0.03); Imm Gran Pct Auto 0.4 % (0.0-0.4); Lymphocytes Absolute Auto 1.3 X10*3/uL (1.2-4.9); Lymphocytes Percent Auto 24.1 % (20-40); Mean Corpuscular Hemoglobin 20.7 pg (27.0-33.0); Mean Corpuscular Volume 71.6 fL (80-98); Mean Platelet Volume 9.2 fL (9.4-12.4); Monocytes Absolute Auto 0.6 X10*3/uL (0.1-1.2); Monocytes Percent Auto 10.7 % (2-11); Neutrophils Absolute Auto 3.4 X10*3/uL (2.0-8.3); Neutrophils Percent Auto 63.1 % (45-73); Platelet Count 175 X10*3/uL (160-400); Red Blood Count 2.99 X10*6/uL (4.60-5.80); White Blood Count 5.4 X10*3/uL (4.8-10.8)
[2020-06-21 07:23] LABS: Hemoglobin 6.2 g/dl (14.0-18.0)
[2020-06-21 07:24] LABS: Hematocrit 21.4 % (42-52); INTERNATIONAL NORM RATIO 1.1 (0.9-1.1); Partial Thromboplastin Time 31.7 SEC (24.1-38.0); Prothrombin Time 12.6 SEC (10.8-13.0)
[2020-06-21 07:25] LABS: OBS Int Ctl Valid YES; OBS1 NEGATIVE (NEGATIVE)
--- NOTE | 2020-06-21 08:15 | PC.NURSE ---
Patient tolerating 1st unit of RBC well. Vitals stable, lung sounds clear throughout, no tranfusion reactions noted. Patient remains awake and alert, speaking in full, clear sentences. Resting on stretcher watching TV. waiting for MRI.
[2020-06-21 08:44] LABS: COVID-19 Test Negative (Negative)
[2020-06-21] MEDS: Pantoprazole Sodium 80 MG in 0.9 % Sodium Chloride 80 ML 10 MG IV (10:01)
--- NOTE | 2020-06-21 12:06 | PC.NURSE ---
Patient assisted to MRI monitored by Terrie PATTERSON
--- NOTE | 2020-06-21 15:18 | PC.NURSE ---
c collar removed by physician. patient ambulated to bathroom w/ slow, steady gait w/ this RN
[2020-06-21 15:32] LABS: Hematocrit 29.2 % (42-52); Hemoglobin 8.7 g/dl (14.0-18.0); Mean Corpuscular HGB Conc 29.8 g/dl (31.0-36.0); Mean Corpuscular Hemoglobin 22.7 pg (27.0-33.0); Mean Platelet Volume 8.8 fL (9.4-12.4); Platelet Count 152 X10*3/uL (160-400); Red Blood Count 3.84 X10*6/uL (4.60-5.80); Red Cell Distribution Width 19.5 % (11.0-16.0); White Blood Count 9.6 X10*3/uL (4.8-10.8)
[2020-06-21] MEDS: methylPREDNISolone Sod Succ 500 MG in 0.9 % Sodium Chloride 50 ML 56.89 MG IV (16:07)
--- NOTE | 2020-06-21 16:15 | P.EN_ITS ---
Event Note Date of Service: 06/21/20 Event Note: Attending Attestation: Patient seen and examined independently and I was present during valdovinos portion of E/M service. Agree with SANDRA Roy's history, physical, assessment, and plan. 69 yo being admitted for spinal confusion and acute blood loss anemia and gi bl eed IV PPI High dose IV steroids x 1 serial h/h GI and Neurology consult NPO pain control
--- NOTE | 2020-06-21 16:41 | P.HPHOSP_ITS ---
History of Present Illness Date of Service: 06/21/20 Chief Complaint: syncope, b/l arm tingling This is a 69-year-old male with a history of atrial fibrillation on Xarelto, heart failure who presents to the emergency department after a fall. Yesterday patient was in his usual state of health and went shopping. When he returned home he got out of car and does not remember what happened afterwards. He woke up on the garage floor. He denies any chest pain, palpitations, dizziness prior to his fall. After his fall he went to take a shower to wash the blood off his face and noticed that he kept dropping his soap. He began having tingling and pins and needles feeling in both of his arms. This prompted him to come to the emergency department for evaluation. Workup in the emergency department revealed severe anemia with an H/H of 6.2/21.4. Patient reported having black tarry stool for the past 4-5 days. He denies any associated abdominal pain. He denies associated vomiting. He takes anticoagulation with Xarelto for atrial fibrillation and also takes 400 mg of ibuprofen almost daily. In addition he drinks [address] scan of the abdomen and pelvis and brain showed no acute abnormalities. C-spine MRI showed a focus of increased signal within the spinal cord at the level of C5 consistent with small focus of edema or evolving myelomalacia. The emergency department provider discussed this with the on-call neurologist who felt this represented a spinal cord contusion which could be t reated with steroids. Review of Systems Review of Systems: Yes all other systems are reviewed and are negative Constitutional: Constitutional: Denies chills and Denies fever(s) Cardiovascular: Cardiovascular: Denies chest pain Respiratory: Respiratory: Denies cough Gastrointestinal: Gastrointestinal: Denies abdominal pain [facility] Medical History Cardiomyopathy Heart failure with reduced ejection fraction Hypertension Mitral regurgitation New onset of congestive heart failure Paroxysmal atrial fibrillation Functional capacity: independent ambulation Family History Father Cancer Mother No problems noted. Social History (Updated 06/21/20 @ 16:59 by SANDRA Plascencia) Household Members: Family Housing: House Alcohol intake: current Alcohol intake frequency: 3 or more drinks per day Alcohol type: beer Smoking Status: Never smoker Use of substances other than those prescribed or required for medical reasons: No Advance Directives: No Advance Directives Information Provided: No Advance Directives Date on File: 04/11/20 service: Yes Current occupational status: retired Meds Allergies Allergy/AdvReac Type Severity Reaction Status Date / Time Penicillins Allergy Unknown Verified 03/03/20 01:30 Active Medications: Current Medications Generic Name Dose Route Start Last Admin Trade Name Freq PRN Reason Stop Dose Admin Pantoprazole Sodium 80 mg/ 100 mls @ 10 mls/hr 06/21/20 08:00 06/21/20 10:01 Sodium Chloride IV 8 mg/hr .Q10H LYDIA 10 mls/hr Administration 8 MG/HR Dextrose/Sodium Chloride 1,000 mls @ 80 mls/hr 06/21/20 16:33 D5ns IVCONT .[id number] [facility] Morphine Sulfate 2 mg 06/21/20 16:34 Morphine Sulfate 2 Mg/Ml Cartridge IVPUSH Q4H PRN Pain, Severe (Pain Scale 7-10) Pantoprazole Sodium 40 mg 06/21/20 16:33 Pantoprazole Sodium 40 Mg/10 Ml Vial IVPUSH BID@0630,1630 [facility] Pharmacy Consult 1 each 06/21/20 07:24 Consult Rx Perform Med Rec MISCELLANE ONCE PRN Consult order Prednisone 20 mg 06/21/20 17:00 Prednisone 20 Mg Tablet PO BIDWM [facility] Home Medications Medication Instructions Recorded Confirmed Last Taken Type furosemide [Lasix] 20 mg PO DAILY PRN 06/21/20 06/21/20 06/20/20 History Physical Exam Vital Signs and Narrative: Vital Signs: Last Vital Signs Temp 99.0 F 06/21/20 12:52 Pulse 60 06/21/20 16:11 Resp 16 06/21/20 16:11 BP 133/59 L 06/21/20 16:11 Pulse Ox 98 06/21/20 16:11 Body Mass Index 25.2 Const: Nutritional Appearance: well nourished Orientation/consciousness: patient oriented x3 HENMT: Head: Yes normocephalic and Yes atraumatic Eyes: Sclerae: sclerae normal Resp: Effort & Inspection: normal respiratory effort and no respiratory distress Cardio: Rate: regular rate Rhythm: regular rhythm GI: Palpation (GI): Soft to palpation and nontender Neuro: Other: able to move all 4 extremities spontaneously; strength equal b/l; sensation intact; hand grasp equal b/l General: patient oriented x3 Results Labs CBC and Chem 7: 06/21/20 15:14 06/21/20 05:10 Labs: Laboratory Results - last 24 hr 06/21/20 06/21/20 06/21/20 05:10 05:10 05:10 MCV MCH MCHC RDW Plt Count MPV Immature Gran % (Auto) Neut % (Auto) Lymph % (Auto) Vance % (Auto) Eos % (Auto) Baso % (Auto) Lymph # (Auto) Vance # (Auto) Eos # (Auto) Baso # (Auto) Abs Immat Gran (auto) Absolute Neuts (auto) Absolute Nucleated RBC Nucleated RBC % (auto) PT INR APTT Anion Gap 15 Estim Creat Clear Calc TNP Estimated GFR 57 Calcium 8.5 Magnesium 1.9 Total Bilirubin 0.5 Direct Bilirubin 0.3 AST 15 ALT 6 Alkaline Phosphatase 67 Total Creatine Kinase 153 Troponin I High Sens 7.9 D Total Protein 6.8 Albumin 3.6 Lipase 23 Stool Occult Blood Ethyl Alcohol < 10 COVID-19 ([place]) COVID-19 Clin Com Blood Type Antibody Screen Crossmatch 06/21/20 06/21/20 06/21/20 05:10 05:10 06:15 MCV 71.6 L MCH 20.7 L MCHC 29.0 L RDW 17.0 H Plt Count 175 MPV 9.2 L Immature Gran % (Auto) 0.4 Neut % (Auto) 63.1 Lymph % (Auto) 24.1 Vance % (Auto) 10.7 Eos % (Auto) 1.1 Baso % (Auto) 0.6 Lymph # (Auto) 1.3 Vance # (Auto) 0.6 Eos # (Auto) 0.1 Baso # (Auto) 0.0 Abs Immat Gran (auto) 0.02 Absolute Neuts (auto) 3.4 Absolute Nucleated RBC 0.000 Nucleated RBC % (auto) 0.0 PT 12.6 D INR 1.1 APTT 31.7 Anion Gap Estim Creat Clear Calc Estimated GFR Calcium Magnesium Total Bilirubin Direct Bilirubin AST ALT Alkaline Phosphatase Total Creatine Kinase Troponin I High Sens Total Protein Albumin Lipase Stool Occult Blood Ethyl Alcohol COVID-19 ([place]) COVID-19 Clin Com Blood Type O Positive Antibody Screen NEGATIVE Crossmatch See Detail 06/21/20 06/21/20 06/21/20 06:15 08:13 15:14 MCV 76.0 L MCH 22.7 L MCHC 29.8 L RDW 19.5 H Plt Count 152 L MPV 8.8 L Immature Gran % (Auto) Neut % (Auto) Lymph % (Auto) Vance % (Auto) Eos % (Auto) Baso % (Auto) Lymph # (Auto) Vance # (Auto) Eos # (Auto) Baso # (Auto) Abs Immat Gran (auto) Absolute Neuts (auto) Absolute Nucleated RBC 0.000 Nucleated RBC % (auto) 0.0 PT INR APTT Anion Gap Estim Creat Clear Calc Estimated GFR Calcium Magnesium Total Bilirubin Direct Bilirubin AST ALT Alkaline Phosphatase Total Creatine Kinase Troponin I High Sens Total Protein Albumin Lipase Stool Occult Blood NEGATIVE Ethyl Alcohol COVID-19 ([place]) Negative COVID-19 Clin Com See Note Blood Type Antibody Screen Crossmatch Imaging Radiologist's Impressions: Impressions Cervical Spine MRI 06/21/20 08:24 IMPRESSION: 1. There are no acute fractures or subluxations. The paraspinal soft tissues appear normal. 2. There is multilevel spondylosis with narrowing of intervertebral disc height in the cervical spine as well as in the upper thoracic spine. There is severe bilateral foraminal narrowing at C3-C4. There is severe left and moderate to severe right foraminal narrowing at C4-C5, and there is moderate to severe bilateral foraminal C5-C6. There is some effacement of CSF around the cord with distortion of the cord at C4-C5 and there is moderate central stenosis at this level. 3. There is a small focus of increased signal within the spinal cord at the level of C5 on the right, which very consistent with a small focus of edema or evolving myelomalacia. Assessment and Plan (1) Contusion of spinal cord: Status: Acute (2) Paroxysmal atrial fibrillation: Status: Acute (3) Heart failure with reduced ejection fraction: Status: Acute This is a 69-year-old male with a history of atrial fibrillation on Xarelto, HFrEF, daily etoh use who presented to the emergency department after a fall found to have spinal cord contusion, GI bleed Syncope ? r/t ortho static hypotension -tele monitoring to eval for arrhythmia GIB/acute blood loss anemia heme neg but significant drop in H/H with history of black tarry stool for 4-5 days in setting of AC with xarelto, daily etoh and ibuprofen use s/p transfusion 2U rbc in ED -IV PPI -NPO -GI consult -q6h H/H Spinal cord contusion received 1 dose solu-medrol in ED per neurology recommendation -continue prednisone -neurology consult -pain control Daily etoh use no evidence of alcohol withdrawal at this time -monitor with CIWA atrial fibrillation -continue metoprolol -hold xarelto HFrEF -hold Lasix, arb HTN -hold valsartan dvt ppx - mechanical devices code status - full code attending: Dr. earl
[2020-06-21] MEDS: Dextrose 5 % and 0.9 % NaCl 1,000 ML 80 ML IVCONT (17:43)
--- NOTE | 2020-06-21 18:39 | PC.NURSE ---
report given to Gema PATTERSON on IMC
[2020-06-21] MEDS: Morphine Sulfate 2 MG/ML CARTRIDGE IVPUSH (19:12)
[2020-06-21] MEDS: Acetaminophen 325 MG TABLET 650 MG PO (22:03)
[2020-06-21] MEDS: Docusate Sodium 100 MG CAPSULE PO (22:03)
[2020-06-22] VITALS (8 sets, daily range): BP systolic 122–151; BP diastolic 59–88; PULSE 56–67; RESP 12–20; TEMP 36.4–37.1; O2SAT 98
[2020-06-22] MEDS: 0.9 % Sodium Chloride Flush 3 ML SYRINGE IVFLUSH ×2 (00:53→16:37)
[2020-06-22] MEDS: Dextrose 5 % and 0.9 % NaCl 1,000 ML 80 ML IVCONT ×2 (06:11→18:19)
[2020-06-22] MEDS: Pantoprazole Sodium 40 MG/10 ML VIAL IVPUSH ×2 (06:11→16:37)
[2020-06-22 06:41] LABS: Hematocrit 26.7 % (42-52); Hemoglobin 8.2 g/dl (14.0-18.0); Mean Corpuscular HGB Conc 30.7 g/dl (31.0-36.0); Mean Corpuscular Hemoglobin 22.9 pg (27.0-33.0); Mean Corpuscular Volume 74.6 fL (80-98); Mean Platelet Volume 9.4 fL (9.4-12.4); Platelet Count 141 X10*3/uL (160-400); Red Blood Count 3.58 X10*6/uL (4.60-5.80); Red Cell Distribution Width 18.6 % (11.0-16.0); White Blood Count 5.3 X10*3/uL (4.8-10.8)
[2020-06-22 07:11] LABS: Anion Gap 14 (12-20); Blood Urea Nitrogen 21 mg/dL (9-16); Carbon Dioxide 19 mmol/L (22-29); Chloride 107 mmol/L (96-108); Creatinine Clr Calc Pharmacy 69.2; Estimated Glomerular Filt Rate > 60; Glucose Random 215 mg/dL (60-115); Potassium 4.7 mmol/L (3.3-5.1); Sodium 135 mmol/L (135-145)
--- NOTE | 2020-06-22 09:30 | MHC.CM.PN ---
CM met with Patient at bedside and addressed IMM with him (providing him with the original and a copy has been placed on the chart).Patient lives in a house with his 91 year old Mother, who has a [employer] We[employer] Loom Setter 3X/week for 2 hours/visit so that Patient can run errands. Patient's Sister/Lisandra is with Patient's Mother now.Patient is functionally independent and his goal is to return home, no services. CM has initiated and will follow for dc planning.Patient's Son/Josesito from [place] is the HCP.
[2020-06-22] MEDS: Metoprolol Succinate ER 100 MG TAB.ER.24H PO (09:31)
[2020-06-22] MEDS: Docusate Sodium 100 MG CAPSULE PO ×2 (09:32→21:10)
[2020-06-22] MEDS: Acetaminophen 325 MG TABLET 650 MG PO ×2 (09:32→18:21)
[2020-06-22] MEDS: methylPREDNISolone Sod Succ 40 MG/ML VIAL 20 MG IVPUSH ×2 (09:32→21:09)
--- NOTE | 2020-06-22 11:33 | P.PNIM_ITS ---
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, no bleeding <SANDRA Plascencia - Last Filed: 06/22/20 12:36> Review of Systems Review of Systems: Yes all other systems are reviewed and are negative <SANDRA Plascencia Last Filed: 06/22/20 12:36> Constitutional Constitutional: Denies chills and Denies fever(s) <SANDRA Plascencia Last Filed: 06/22/20 12:36> Cardiovascular Cardiovascular: Denies chest pain <SANDRA Plascencia Last Filed: 06/22/20 12:36> Respiratory Respiratory: Denies cough <SANDRA Plascencia Last Filed: 06/22/20 12:36> Gastrointestinal Gastrointestinal: Denies abdominal pain <SANDRA Plascencia Last Filed: 06/22/20 12:36> Physical Exam Vital Signs: Vital Signs: Last Vital Signs Temp 98.0 F 06/22/20 07:57 Pulse 64 06/22/20 09:31 Resp 18 06/22/20 07:57 BP 138/65 06/22/20 07:57 Pulse Ox 98 06/22/20 07:57 Body Mass Index 25.2 <SANDRA Plascencia - Last Filed: 06/22/20 12:36> Const: Nutritional Appearance: well nourished <SANDRA Plascencia Last Filed: 06/22/20 12:36> Orientation/consciousness: patient oriented x3 <SANDRA Plascencia Last Filed: 06/22/20 12:36> HENMT: Head: Yes normocephalic and Yes atraumatic <SANDRA Plascencia Last Filed: 06/22/20 12:36> Eyes: Sclerae: sclerae normal <SANDRA Plascencia Last Filed: 06/22/20 12:36> Resp: Effort & Inspection: normal respiratory effort and no respiratory distress <SANDRA Plascencia Last Filed: 06/22/20 12:36> Cardio: Rate: regular rate <SANDRA Plascencia Last Filed: 06/22/20 12:36> Rhythm: regular rhythm <SANDRA Plascencia - Last Filed: 06/22/20 12:36> GI: Palpation (GI): Soft to palpation and nontender <SANDRA Plascencia Last Filed: 06/22/20 12:36> Neuro: Other: able to move all 4 extremities spontaneously; strength equal b/l; sensation intact; hand grasp equal b/l <SANDRA Plascencia Last Filed: 06/22/20 12:36> General: patient oriented x3 <SANDRA Plascencia Last Filed: 06/22/20 12:36> Objective Data Current Medications Generic Name Dose Route Start Last Admin Trade Name Freq PRN Reason Stop Dose Admin Acetaminophen 650 mg 06/21/20 19:46 06/22/20 09:32 Acetaminophen 325 Mg Tablet PO 650 mg Q6H PRN Administration Pain, Mild (Pain Scale 1-3) Docusate Sodium 100 mg 06/21/20 21:00 06/22/20 09:32 Docusate Sodium 100 Mg Capsule PO 100 mg BID LYDIA Administration Dextrose/Sodium Chloride 1,000 mls @ 80 mls/hr 06/21/20 16:33 06/22/20 06:11 D5ns IVCONT 80 mls/hr .[id number] LYDIA Administration Methylprednisolone Sodium Succinate 20 mg 06/22/20 09:00 06/22/20 09:32 Methylprednisolone Sod Succ 40 Mg/Ml Vial IVPUSH 20 mg Q12H LYDIA Administration Metoprolol Succinate 100 mg 06/22/20 09:00 06/22/20 09:31 Metoprolol Succinate Er 100 Mg Tab.Er.24h PO 100 mg DAILY LYDIA Administration Protocol Morphine Sulfate 2 mg 06/21/20 16:34 06/21/20 19:12 Morphine Sulfate 2 Mg/Ml Cartridge IVPUSH 2 mg Q4H PRN Administration Pain, Severe (Pain Scale 7-10) Pantoprazole Sodium 40 mg 06/22/20 06:30 06/22/20 06:11 Pantoprazole Sodium 40 Mg/10 Ml Vial IVPUSH 40 mg BID@0630,[id number] [facility] Administration Pharmacy Consult 1 each 06/21/20 07:24 Consult Rx Perform Med Rec MISCELLANE ONCE PRN Consult order Senna 17.2 mg 06/21/20 19:46 Sennosides 8.6 Mg Tablet PO BEDTIME PRN Constipation Sodium Chloride 3 ml 06/22/20 00:00 06/22/20 09:24 0.9 % Sodium Chloride Flush 3 Ml Syringe IVFLUSH Not Given QSHIFT LYDIA <SANDRA Plascencia - Last Filed: 06/22/20 12:36> Labs CBC & Chem 7: : 06/22/20 05:49 06/22/20 05:49 <SANDRA Plascencia - Last Filed: 06/22/20 12:36> Assessment and Plan (1) Contusion of spinal cord: Status: Acute <SANDRA Plascencia - Last Filed: 06/22/20 12:36> (2) Paroxysmal atrial fibrillation: Status: Acute <SANDRA Plascencia - Last Filed: 06/22/20 12:36> (3) Heart failure with reduced ejection fraction: Status: Acute <SANDRA Plascencia - Last Filed: 06/22/20 12:36> (4) GI bleeding: Status: Acute <SANDRA Plascencia - Last Filed: 06/22/20 12:36> Assessment and Plan: This is a 69-year-old male with a history of atrial fibrillation on Xarelto, HFrEF, daily etoh use who presented to the emergency department after a fall found to have spinal cord contusion, GI bleed Syncope ? r/t orthostatic hypotension in the setting of anemia -tele monitoring to eval for arrhythmia GIB/acute blood loss anemia heme neg but significant drop in H/H from baseline with history of black tarry stool for 4-5 days in setting of AC with xarelto, daily etoh and ibuprofen use s/p transfusion 2U rbc in ED with appropriate rise in H/H. H/H stable overnight -IV PPI -NPO -GI consult pending -follow CBC Spinal cord contusion Improving -continue IV steroids -neurology consult pending -pain control Daily etoh use no evidence of alcohol withdrawal -monitor with CIWA atrial fibrillation -continue metoprolol -hold xarelto for GIB HFrEF -hold Lasix, arb HTN -hold valsartan dvt ppx - mechanical devices code status - full code attending: Dr. earl <SANDRA Plascencia - Last Filed: 06/22/20 12:36> Attending Attestation: Patient seen and examined independently and I was present during valdovinos portion of E/M service. Agree with SANDRA Roy's history, physical, assessment, and plan. Numbness / weakness improved compared to yesterday low dose IV prednisone Neurology evaluation GI input appreciated -- would need endoscopic eval once okay by neurology <Juan Earl MD - Last Filed: 06/22/20 13:00>
--- NOTE | 2020-06-22 12:51 | P.CNNE_ITS ---
History of Present Illness Data of Consult Service Date: 06/22/20 Primary Care Provider: Ira Ramírez MD 69 years old man with underlying history of cardiomyopathy with low ejection fraction and atrial fibrillation who was brought to hospital after he fell. He said that he could not figure out why he fell and did not remember. He said that he might have slipped but that was just his thinking. He did not remember that he slipped on anything. He was on the ground for a while, according to him probably 2 hours, before he woke up. In emergency room he was noted to have facial bruises and he complained of bilateral hand numbness and pain and weakness. This resulted in investigation with cervical spine MRI revealing some findings and he was admitted. When I saw him he was feeling somewhat better. Review of Systems Review of Systems: No recent cold or flu-like illness. No previous history of seizure. No prior recent cardiac or chest symptoms. [facility] Past Medical History Medical History Cardiomyopathy Heart failure with reduced ejection fraction Hypertension Mitral regurgitation New onset of congestive heart failure Paroxysmal atrial fibrillation Functional capacity: independent ambulation Family History Family History Father Cancer Mother No problems noted. Social History Social History (Updated 06/21/20 @ 16:59 by SANDRA Plascencia) Household Members: Family Housing: House Do you presently have visiting nurse or other home services: No Alcohol intake: current Alcohol intake frequency: 3 or more drinks per day Alcohol type: beer Smoking Status: Former smoker Smoked in Last 30 Days: No Use of substances other than those prescribed or required for medical reasons: No Currently Displaying Signs/Symptoms of Drug Intoxication Withdrawal: No Have you been hit, kicked, punched, or otherwise hurt by someone within the past year? If so, by whom?: No Do you feel safe in your current relationship?: No Current Relationship Is there a partner from a previous relationship who is making you feel unsafe now?: No Are you made to feel afraid or neglected: No Advance Directives: No Advance Directives Information Provided: No Advance Directives Date on File: 04/11/20 Do you have thoughts of harming others: None Do you have a plan to hurt others: No Plan Recently lost weight without trying: No service: Yes Current occupational status: retired Meds Allergies Allergy/AdvReac Type Severity Reaction Status Date / Time Penicillins Allergy Unknown Verified 03/03/20 01:30 Active Medications: Current Medications Generic Name Dose Route Start Last Admin Trade Name Freq PRN Reason Stop Dose Admin Acetaminophen 650 mg 06/21/20 19:46 06/22/20 09:32 Acetaminophen 325 Mg Tablet PO 650 mg Q6H PRN Administration Pain, Mild (Pain Scale 1-3) Docusate Sodium 100 mg 06/21/20 21:00 06/22/20 09:32 Docusate Sodium 100 Mg Capsule PO 100 mg BID LYDIA Administration Dextrose/Sodium Chloride 1,000 mls @ 80 mls/hr 06/21/20 16:33 06/22/20 06:11 D5ns IVCONT 80 mls/hr .[id number] LYDIA Administration Methylprednisolone Sodium Succinate 20 mg 06/22/20 09:00 06/22/20 09:32 Methylprednisolone Sod Succ 40 Mg/Ml Vial IVPUSH 20 mg Q12H LYDIA Administration Metoprolol Succinate 100 mg 06/22/20 09:00 06/22/20 09:31 Metoprolol Succinate Er 100 Mg Tab.Er.24h PO 100 mg DAILY LYDIA Administration Protocol Morphine Sulfate 2 mg 06/21/20 16:34 06/21/20 19:12 Morphine Sulfate 2 Mg/Ml Cartridge IVPUSH 2 mg Q4H PRN Administration Pain, Severe (Pain Scale 7-10) Pantoprazole Sodium 40 mg 06/22/20 06:30 06/22/20 06:11 Pantoprazole Sodium 40 Mg/10 Ml Vial IVPUSH 40 mg BID@0630,1630 [facility] Administration Pharmacy Consult 1 each 06/21/20 07:24 Consult Rx Perform Med Rec MISCELLANE ONCE PRN Consult order Senna 17.2 mg 06/21/20 19:46 Sennosides 8.6 Mg Tablet PO BEDTIME PRN Constipation Sodium Chloride 3 ml 06/22/20 00:00 06/22/20 09:24 0.9 % Sodium Chloride Flush 3 Ml Syringe IVFLUSH Not Given QSHIFT [facility] Home Medications Medication Instructions Recorded Confirmed Last Taken Type furosemide [Lasix] 20 mg PO DAILY PRN 06/21/20 06/21/20 06/20/20 History Physical Exam Vital Signs: Vital Signs: Last Vital Signs Temp 97.5 F 06/22/20 12:00 Pulse 59 06/22/20 12:00 Resp 20 06/22/20 12:00 BP 151/67 H 06/22/20 12:00 Pulse Ox 98 06/22/20 12:00 Body Mass Index 25.2 He was alert and awake with normal spontaneity of speech fluency comprehension and affect. Both sides of face were bruised. He had [id number] bilateral hand weakness in arm weakness. Hands were somewhat sensitive to touch. He also had decreased sensitivity in hands. He was able to lift his legs up without difficulty. Deep tendon reflexes were 1+ with equivocal plantars. He was not in any distress or pain. Results Labs CBC & Chem 7: 06/22/20 05:49 06/22/20 05:49 Labs: Short CBC 06/21/20 06/22/20 Range/Units 15:14 05:49 WBC 9.6 5.3 (4.8-10.8) X10*3/uL Hgb 8.7 L D 8.2 L (14.0-18.0) g/dl Hct 29.2 L D 26.7 L (42-52) % Plt Count 152 L 141 L (160-400) X10*3/uL BMP 06/22/20 05:49 Sodium 135 Potassium 4.7 Chloride 107 Carbon Dioxide 19 L BUN 21 H Creatinine 1.04 Calcium 8.0 L His cervical spine MRI revealed chronic mid cervical spondylosis more severe at C4-5 with significant stenosis and slight cord signal abnormality. Assessment and Plan (1) Syncope and collapse: Problem details: Main issue in this man is why he fell and was on the ground for long time. He might have fallen due to mechanical reason but he did not remember any such event. Typical reasons for syncope should be looked at including possibility of seizure disorder. He should be advised to be careful, not drive at this time, and avoid activities that could put his life in danger. If no cardiac reason for syncope is found, I should make an appointment with our office for further evaluation to rule out seizure disorder Status: Acute (2) Cervical spondylitic cord compression: Problem details: This probably was chronic and somewhat have gotten worse due to the fall. Alternatively spinal cord contusion might have been acute due to the fall. In any case he was better with steroid treatment. He might require a Neurosurgery consultation but that was not urgent. As far as further investigations for GI bleed or endoscopy type of procedures are concerned, or local or general anesthesia, there was no neurological contraindication. Status: Acute
--- NOTE | 2020-06-22 19:54 | PM.EVENT ---
Event Note Date of Service: 06/22/20 Event Note: GI Consult-Full note dictated-Hx via patient and EMR Imp: Microcytic anemia--this appears to have been chronic with slow progression based on the medical record, until his recent episode of melena caused a more acute drop and his syncope. He has had no further signs of bleeding and his abdominal exam as benign. He has been on Xarelto in relation to Afib, but has also been using Ibuprofen and 2-3 beers at least a few times a week . He denies any localizing GI symptoms. Diff dx: PUD/erosive gastritis as the cause of his melena; GI neoplasm, AVM's, gastritis or PUD as the cause of his chronic microcytic anemia. Rec: IV PPI, F/U Hgb, Full liquids, hold Xarelto. EGD and Colonoscopy on 06/26/20(Thursday, 06/25, is a hospital holiday) with me or Dr. Braden with [facility] [place]. Full consent has been obtained from him for this, including risks of bleeding and perforation. We did review the need for him avoid all NSAIDs and EtOH in the future once he is back on his Xarelto. Patient is comfortable with this plan. Thanks
[2020-06-22 21:09] LABS: Hematocrit 26.2 % (42-52); Hemoglobin 7.7 g/dl (14.0-18.0); Imm Gran Abs Auto 0.04 X10*3/uL (0.00-0.03); Imm Gran Pct Auto 0.5 % (0.0-0.4); Lymphocytes Absolute Auto 0.5 X10*3/uL (1.2-4.9); MANUAL DIFF FLAG SCAN; Mean Corpuscular HGB Conc 29.4 g/dl (31.0-36.0); Mean Corpuscular Hemoglobin 21.9 pg (27.0-33.0); Mean Corpuscular Volume 74.6 fL (80-98); Monocytes Absolute Auto 0.6 X10*3/uL (0.1-1.2); Monocytes Percent Auto 7.1 % (2-11); Neutrophils Absolute Auto 7.6 X10*3/uL (2.0-8.3); Neutrophils Percent Auto 86.4 % (45-73); Platelet Count 121 X10*3/uL (160-400); Red Blood Count 3.51 X10*6/uL (4.60-5.80); Red Cell Distribution Width 19.1 % (11.0-16.0); SCAN SMEAR FLAG 1; White Blood Count 8.7 X10*3/uL (4.8-10.8)
[2020-06-22 21:31] LABS: SLIDE REVIEW VERIFIED
[2020-06-23] VITALS: BP 144/69; PULSE 65; RESP 18; TEMP 36.6; O2SAT 98
--- NOTE | 2020-06-23 03:45 | CONS_ITS ---
DATE OF SERVICE: 06/22/2020 REASON FOR CONSULTATION: Melena and anemia. HISTORY OF PRESENT ILLNESS: The patient is a 69-year-old male, on chronic Xarelto for atrial fibrillation, who presents with a syncopal episode and reported melena and heme-positive stool. The patient apparently was in his usual state of health up until suffering a syncopal episode at home with some injuries. He was found to have a spinal cord contusion involving the cervical spine and was started on some steroids by the Neurology Department. However, during his workup in the ER, he was found to be quite anemic with some black stool. In addition to the Xarelto, he does describe using some ibuprofen as well as about 2 to 3 beers at least a few times a week. He denies any previous history of GI bleeding. He denies any known history of liver disease. In reviewing his record, he has had anemia with microcytic indices dating back to at least February, at which time, he had a hemoglobin of 9.6 and MCV of 73. In early April, his hemoglobin was 8.3 with an MCV of 72. On presentation, yesterday's hemoglobin was 6.2. The patient denies any particular GI symptoms. He typically enjoys good appetite without any dysphagia, heartburn, nausea, vomiting, nor early satiety. He reports his bowel movements have been regular up until the past few days before admission, at which point, it turned black. He has not noticed any hematochezia. He does describe a negative colonoscopy about 4 or 5 years ago. He has never had an upper endoscopy. He denies any known family history of colorectal cancer. Since admission here, he has had 2 units of blood. He has not had any bowel movements in 48 hours. He is feeling better. MEDICATIONS: His medications at home included furosemide, metoprolol, Xarelto, and valsartan. His medications here in the hospital include acetaminophen, Colace, IV methylprednisolone, metoprolol, morphine p.r.n., and IV Protonix. PAST MEDICAL HISTORY: Some type of foot surgery in relation to an accident with some pins. Atrial fibrillation. He has underlying history of cardiomyopathy with some heart failure. Hypertension. Mitral regurgitation. SOCIAL HISTORY: He is a . He does not smoke. Alcohol as above. He is retired. FAMILY HISTORY: Noncontributory. REVIEW OF SYSTEMS: SKIN: No rash. No pruritus. CARDIAC: No chest pain. PULMONARY: No cough. No hemoptysis. GASTROINTESTINAL: As above. URINARY: No dysuria. No hematuria. PHYSICAL EXAMINATION: GENERAL: The patient is a pleasant, alert male. HEENT: Anicteric sclerae. NECK: Supple. CHEST: Clear. CARDIAC: Normal S1 and S2. ABDOMEN: Soft, nondistended, nontender without mass. LABORATORY DATA: As above. Hemoglobin today is up to 8.2 after the transfusions. White blood cell count is 5.3, MCV 75, platelets 141,000. PT 12.6 with INR of 1.1. Normal electrolytes. BUN 21, creatinine 1.0. BUN yesterday was 31. LFTs were normal. COVID was negative. Stool was actually Hemoccult negative. IMPRESSION: Given the patient's presentation, he may very well had some acute blood loss superimposed on his chronic microcytic anemia. Given his risk factors, it sounds like he had some component of upper GI bleeding recently in relation to Xarelto, NSAIDs, and alcohol. However, I would also be concerned about some chronic GI blood loss given the associated microcytic anemia that has been progressing over at least the past few months. As such, I would recommend upper endoscopy and colonoscopy. I do not think the upper endoscopy needs to be done urgently given his stable clinical appearance. As such, the procedures will be booked for him on Thursday, June 26 as long as things remain stable. He did mention that he thinks he might be able to go home over the weekend and I advised him that if that is the case, we would then have to arrange for outpatient procedures in the near future. Full consent has been obtained from him for the 2 procedures, including risks of bleeding and perforation. The procedures will be done either by myself or Dr. Braden. They will be done with monitored anesthesia care. In the meantime, I would recommend continuing his IV proton pump inhibitor and following his hemoglobin. He obviously needs to stay off all anticoagulants and aspirin products until we have done the procedures. Depending upon the findings, he may need to hold the Xarelto longer to prevent recurrent bleeding. This has all been discussed with the patient. He is comfortable with this plan. Thank you for this consultation. MD MALINI Veloz/LUDWIN / [id number]
[2020-06-23 04:00] VITALS: BP 157/77; PULSE 68; RESP 18; TEMP 36.3; O2SAT 98
[2020-06-23] MEDS: Dextrose 5 % and 0.9 % NaCl 1,000 ML 80 ML IVCONT (05:25)
[2020-06-23] MEDS: Pantoprazole Sodium 40 MG/10 ML VIAL IVPUSH (05:25)
[2020-06-23 07:12] LABS: Hematocrit 26.9 % (42-52); Hemoglobin 8.1 g/dl (14.0-18.0); Mean Corpuscular HGB Conc 30.1 g/dl (31.0-36.0); Mean Corpuscular Hemoglobin 22.5 pg (27.0-33.0); Mean Corpuscular Volume 74.7 fL (80-98); Mean Platelet Volume 9.8 fL (9.4-12.4); Platelet Count 140 X10*3/uL (160-400); White Blood Count 9.6 X10*3/uL (4.8-10.8)
[2020-06-23 07:42] LABS: Anion Gap 13 (12-20); Blood Urea Nitrogen 19 mg/dL (9-16); Calcium 8.1 mg/dL (8.4-10.2); Carbon Dioxide 19 mmol/L (22-29); Chloride 109 mmol/L (96-108); Creatinine Clr Calc Pharmacy 86.7; Estimated Glomerular Filt Rate > 60; Glucose Fasting 136 mg/dL (60-99); Potassium 4.2 mmol/L (3.3-5.1); Sodium 137 mmol/L (135-145)
[2020-06-23 08:00] VITALS: BP 154/74; PULSE 58; RESP 17; TEMP 36.7; O2SAT 97
[2020-06-23] MEDS: 0.9 % Sodium Chloride Flush 3 ML SYRINGE IVFLUSH (08:17)
[2020-06-23] MEDS: methylPREDNISolone Sod Succ 40 MG/ML VIAL 20 MG IVPUSH (08:17)
[2020-06-23] MEDS: Docusate Sodium 100 MG CAPSULE PO (08:17)
[2020-06-23 08:22] VITALS: BP 154/74; PULSE 67
[2020-06-23] MEDS: Metoprolol Succinate ER 100 MG TAB.ER.24H PO (08:22)
--- NOTE | 2020-06-23 09:15 | P.DS_ITS ---
DS: Providers Provider Date of Service: 06/23/20 Date of admission: 06/21/20 16:33 Primary care physician: Ira Ramírez MD Consults: 06/21/20 16:33 Consult to Gastroenterology Routine Consulting Provider: Bret Gray Reason for consultation: GI bleeding Has provider been notified: No Consult to Neurology Routine Consulting Provider: [facility] Reason for consultation: spinal cord contusion Has provider been notified: No DS: Diagnosis Discharge Diagnosis (1) Syncope and collapse: Status: Acute Problem details: Main issue in this man is why he fell and was on the ground for long time. He might have fallen due to mechanical reason but he did not remember any such event. Typical reasons for syncope should be looked at including possibility of seizure disorder. He should be advised to be careful, not drive at this time, and avoid activities that could put his life in danger. If no cardiac reason for syncope is found, I should make an appointment with our office for further evaluation to rule out seizure disorder (2) Cervical spondylitic cord compression: Status: Acute Problem details: This probably was chronic and somewhat have gotten worse due to the fall. Alternatively spinal cord contusion might have been acute due to the fall. In any case he was better with steroid treatment. He might require a Neurosurgery consultation but that was not urgent. As far as further investigations for GI bleed or endoscopy type of procedures are concerned, or local or general anesthesia, there was no neurological contraindication. (3) GI bleeding: Status: Acute (4) Mitral regurgitation: Status: Acute (5) Paroxysmal atrial fibrillation: Status: Acute (6) Heart failure with reduced ejection fraction: Status: Acute (7) Anemia: Status: Acute DS: Medications Discharge Medications Home Medications: Home Medications Medication Instructions Recorded Confirmed furosemide [Lasix] 20 mg PO DAILY PRN 06/21/20 06/21/20 Previous Rx's Medication Instructions Recorded metoprolol succinate 100 mg 100 mg PO DAILY #90 tab 06/12/20 tablet,extended release 24 hr valsartan 80 mg tablet 80 mg PO DAILY #90 tab 06/12/20 omeprazole 40 mg PO BID #60 cap 06/23/20 prednisone 40 mg PO DAILY #20 tab 06/23/20 DS: Summary Hospital Course Hospital Course: Was admitted for acute blood loss anemia due to GI bleed complicated by syncope and cervical spondylitic cord compression. He was transfused 2 units of PRBC. Hemoglobin improved appropriately from 6.2 on admission to 8.1 at discharge. He was given Protonix IV and his Xarelto was held. He will continue on p.o. Prilosec. He was seen by Gastroenterology who recommended EGD and colonoscopy. Patient was relatively stable and was not interested in remaining inpatient for not urgent endoscopy, therefore, he will be discharged home and follow up with Gastroenterology as outpatient for the procedures. For his cervical spondylitic cord compression, he was seen by Neurology who recommended steroids and outpatient neurosurgery follow up. his syncope was thought to be related to his anemia, but could not rule out seizure, therefore, patient recommended not to drive and to follow up with neurology as outpatient for further recommendations and work up. Time Spent with Patient Time attestation: Total time spent providing and/or coordinating discharge services: Discharge coordination time: Greater than 30 minutes Physical Exam Vital Signs: Vital Signs: Last Vital Signs Temp 98.0 F 06/23/20 08:00 Pulse 67 06/23/20 08:22 Resp 17 06/23/20 08:00 BP 154/74 H 06/23/20 08:22 Pulse Ox 97 06/23/20 08:00 Body Mass Index 25.2 General: AO X 3, no acute distress, mild abrasians on face Resp: CTA bilateral CVS: S1,S2,RRR, murmur GI: soft, non tender, non distended Neuro: bilateral hand weakness Psych: appropriate affect DS: Data Data Completed and Pending Completed studies during hospitalization [Text1]: Procedures Detoxification Services for Substance Abuse Treatment (03/03/20) Labs on day of discharge: Laboratory Results - last 24 hr 06/22/20 06/23/20 06/23/20 20:55 06:02 06:02 WBC 8.7 9.6 RBC 3.51 L 3.60 L Hgb 7.7 L 8.1 L Hct 26.2 L 26.9 L MCV 74.6 L 74.7 L MCH 21.9 L 22.5 L MCHC 29.4 L 30.1 L RDW 19.1 H 19.0 H Plt Count 121 L 140 L MPV 9.0 L 9.8 Immature Gran % (Auto) 0.5 H Neut % (Auto) 86.4 H Lymph % (Auto) 6.0 L [place] % (Auto) 7.1 Eos % (Auto) 0.0 Baso % (Auto) 0.0 Lymph # (Auto) 0.5 L [place] # (Auto) 0.6 Eos # (Auto) 0.0 Baso # (Auto) 0.0 Abs Immat Gran (auto) 0.04 H Absolute Neuts (auto) 7.6 Absolute Nucleated RBC 0.000 0.000 Nucleated RBC % (auto) 0.0 0.0 Smear Tech's Comments VERIFIED Sodium 137 Potassium 4.2 Chloride 109 H Carbon Dioxide 19 L Anion Gap 13 BUN 19 H Creatinine 0.83 Estim Creat Clear Calc 86.7 Estimated GFR > 60 Fasting Glucose 136 H Calcium 8.1 L Discharge Plan Discharge Patient Disposition: Home, Self-Care Discharge Diagnosis: syncope, gi bleed, cervical spondylitic cord compression Referrals: Ira Ramírez MD [Primary Care Provider] - 1 Week Willie Cody MD [Physician] - 1 Week Bret Gray [Physician] - 1 Week Discharge Medications: New omeprazole 40 mg capsule,delayed release(DR/EC) 40 mg PO BID Qty: 60 RF: 0 prednisone 20 mg tablet 40 mg PO DAILY Qty: 20 RF: 0 Continued metoprolol succinate [Toprol XL] 100 mg tablet extended release 24 hr 100 mg PO DAILY Qty: 90 RF: 1 valsartan 80 mg tablet 80 mg PO DAILY Qty: 90 RF: 1 furosemide [Lasix] 20 mg tablet 20 mg PO DAILY PRN (Reason: edema) RF: 0 Discontinued Xarelto 20 mg tablet 20 mg PO QPM Qty: 30 RF: 2 Discharge Orders: Discharge Order (Routine); Ordered 06/23/20 Ordered By: Ladarius Gutiérrez Activity on Discharge: As tolerated Stand Alone Forms: Patient Portal Discharge page Care Plan Goals: recovery Health Concerns: gi bleed, cervical cord compression Plan of Treatment: prilosec, stop xarelto for now, follow up with gi for scope... prednisone, follow up with neurosurgery, no driving, follow up with cardiology Assessment: see above
[2020-06-23 09:18] LABS: Magnesium 1.8 mg/dL (1.6-2.6)
--- NOTE | 2020-06-23 09:18 | MHC.CM.PN ---
Pt cleared to DC home today with no services. Family to transport
== END 2020-06-23 10:30 | disposition home or self-care (01) | DRG 312 ==
LOC: HO.ED 15:58 → HO.EDOVER 17:15 → HO.IMC 17:21
PROVIDERS: Emergency Medicine; Internal Medicine; Physician Assistant Medical; Admitting Provider Family Medicine; Emergency Provider Emergency Medicine Emergency Medical Services; PCP Internal Medicine; Visit Provider Internal Medicine
DX: I95.1 Orthostatic hypotension (principal); K92.2 Gastrointestinal hemorrhage, unspecified; D62 Acute posthemorrhagic anemia; M47.12 Other spondylosis with myelopathy, cervical region; I50.20 Unspecified systolic (congestive) heart failure; M48.02 Spinal stenosis, cervical region; I48.0 Paroxysmal atrial fibrillation; I34.0 Nonrheumatic mitral (valve) insufficiency; I11.0 Hypertensive heart disease with heart failure; F10.10 Alcohol abuse, uncomplicated; Z20.822 Contact with and (suspected) exposure to COVID-19; Z79.1 Long term (current) use of non-steroidal anti-inflammatories (NSAID); Z79.01 Long term (current) use of anticoagulants; Z87.891 Personal history of nicotine dependence; Z79.899 Other long term (current) drug therapy
CPT/HCPCS: 36415; 70450; 71250; 72125; 72141; 73130; 74176; 80048; 80051; 80076; 80320; 82272; 82310; 82550; 82565; 83690; 83735; 84484; 84520; 85025; 85027; 85610; 85730; 86850; 86900; 86923; 87635; 93005; 96365; 96366; 96375; 99285; 99291; J2270; J2920; J2930; P9016

== ENCOUNTER → 2020-07-04 11:05 | Day surgery (SDC) | payer MEDICARE, SELFPAY ==
[2020-06-11 14:46] VITALS: BMI 24.9
--- NOTE | 2020-06-14 10:07 | HO.ANESPROP2 ---
HPI - Anesthesia Eval Consult details Narrative: 69yo M for Transesophageal Echocardiogram s/p cardioversion with MAC 04/2020 ECHO good, but SOB persists. MARK to eval mitral valve. [facility] Active Problems Active Problems: All Active Problems (Updated 05/03/20 @ 14:42 by Francisco Corral MD) SOB (shortness of breath) on exertion (Acute) Mitral regurgitation (Acute) Paroxysmal atrial fibrillation (Acute) Heart failure with reduced ejection fraction (Acute) Hypomagnesemia (Acute) Cardiomyopathy (Acute) Alcohol use disorder (Acute) Hypertension (Acute) Atrial fibrillation (Acute) Pleural effusion, bilateral (Acute) Past Medical History Medical History (Updated 05/03/20 @ 14:42 by Francisco Corral MD) Cardiomyopathy Heart failure with reduced ejection fraction Hypertension Mitral regurgitation New onset of congestive heart failure Paroxysmal atrial fibrillation Family History Family History (Updated 04/05/20 @ 14:46 by Luh Quiñonez [facility]) Father Cancer Mother No problems noted. Social History Social History Household Members: Family Housing: House Alcohol intake: current Alcohol intake frequency: 3 or more drinks per day Alcohol type: beer Smoking Status: Former smoker Advance Directives Date on File: 04/11/20 service: Yes Current occupational status: retired Meds Allergies Allergy/AdvReac Type Severity Reaction Status Date / Time Penicillins Allergy Unknown Verified 03/03/20 01:30 Exam Exam Date and Time: June 14, 2020 1007 Height,Weight and Vital Signs: Height 5 ft 8 in Weight 74.389 kg Pertinent Lab Results Pertinent Lab Results: Laboratory Tests 04/13/20 04/13/20 09:12 09:12 WBC 7.5 Hgb 8.3 L Hct 27.9 L Plt Count 203 D Sodium 138 Potassium 4.2 Chloride 99 Carbon Dioxide 29 BUN 33 H Creatinine 1.41 H Narrative Narrative: ECHO 05/25/20 Conclusions: - 1. Low normal LV systolic function LVEF 50-55% 2. Dilated right ventricle with low normal RV systolic function 3. Severely dilated left atrium 4. Moderate to severe eccentric mitral regurgitation 5. Normal calculated RV systolic pressure 6. No pericardial effusion EKG 05/03/20 NSR with SA @ [address] abn Assessment and Plan Assessment Anesthesia Assessment: Chart Reviewed
== END ==
PROVIDERS: PCP Internal Medicine; Visit Provider Internal Medicine Cardiovascular Disease
DX: I34.0 Nonrheumatic mitral (valve) insufficiency (principal); Z53.9 Procedure and treatment not carried out, unspecified reason

== ENCOUNTER 2020-07-09 11:47 | Day surgery (SDC) | payer MEDICARE, SELFPAY ==
--- NOTE | 2020-07-05 13:55 | HO.ANESPROP2 ---
Documented by User: Jo-Ann Barker 07/05/20 14:02 HPI - Anesthesia Eval Consult details Narrative: 69yo M for Upper Endoscopy and Colonoscopy Recent C admit with acute blood loss anemia/fall. Transfused 2 units. Recommended nonurgent EGD/[place]. Also started on steriods and neurosurg f/u for cervical cord compression. Per inpt neuro consult: He might require a Neurosurgery consultation but that was not urgent. As far as further investigations for GI bleed or endoscopy type of procedures are concerned, or local or general anesthesia, there was no neurological contraindication. [facility] Active Problems Active Problems: All Active Problems (Updated 06/22/20 @ 13:09 by Jose Hummel MD) Cervical spondylitic cord compression (Acute) Syncope and collapse (Acute) GI bleeding (Acute) Fall (Acute) Upper arm pain (Acute) Anemia (Acute) Contusion of spinal cord (Acute) SOB (shortness of breath) on exertion (Acute) Mitral regurgitation (Acute) Paroxysmal atrial fibrillation (Acute) Heart failure with reduced ejection fraction (Acute) Hypomagnesemia (Acute) Cardiomyopathy (Acute) Alcohol use disorder (Acute) Hypertension (Acute) Atrial fibrillation (Acute) Pleural effusion, bilateral (Acute) Past Medical History Medical History Cardiomyopathy Heart failure with reduced ejection fraction Hypertension Mitral regurgitation New onset of congestive heart failure Paroxysmal atrial fibrillation Family History Family History Father Cancer Mother No problems noted. Social History Social History (Updated 06/21/20 @ 16:59 by SANDRA Plascencia) Household Members: Family Housing: House Alcohol intake: current Alcohol intake frequency: 3 or more drinks per day Alcohol type: beer Smoking Status: Never smoker Patient Interested in Nicotine Replacement: No Patient Given Instructions on How to Stop Smoking: No Second Hand Smoke Exposure: No Have you been hit, kicked, punched, or otherwise hurt by someone within the past year? If so, by whom?: No Are you DNR?: No Advance Directives: Yes Advance Directives on File: Yes Advance Directives Date on File: 04/11/20 Nutrition Risks: No Nutritional Risk service: Yes Current occupational status: retired Meds Allergies Allergy/AdvReac Type Severity Reaction Status Date / Time Penicillins Allergy Unknown Verified 03/03/20 01:30 Home Medications Medication Instructions Recorded Confirmed Last Taken Type furosemide [Lasix] 20 mg PO DAILY PRN 06/21/20 06/21/20 06/20/20 History rivaroxaban [Xarelto] 1 tab PO BEDTIME 07/09/20 07/09/20 07/08/20 06:30 History Exam Exam Date and Time: July 05, 2020 1355 Pertinent Lab Results Pertinent Lab Results: Laboratory Tests 06/23/20 06/23/20 06:02 06:02 WBC 9.6 Hgb 8.1 L Hct 26.9 L Plt Count 140 L Sodium 137 Potassium 4.2 Chloride 109 H Carbon Dioxide 19 L BUN 19 H Creatinine 0.83 Narrative Narrative: ECHO 05/25/20 Conclusions: - 1. Low normal LV systolic function LVEF 50-55% 2. Dilated right ventricle with low normal RV systolic function 3. Severely dilated left atrium 4. Moderate to severe eccentric mitral regurgitation 5. Normal calculated RV systolic pressure 6. No pericardial effusion EKG 05/03/20 NSR with SA @ [address] abn Assessment and Plan Assessment Anesthesia Assessment: Chart Reviewed Documented by User: Elysia Jenkins 07/09/20 14:05 [facility] Past Medical History Medical History Cardiomyopathy Heart failure with reduced ejection fraction Hypertension Mitral regurgitation New onset of congestive heart failure Paroxysmal atrial fibrillation Family History Family History Father Cancer Mother No problems noted. Social History Social History (Updated 06/21/20 @ 16:59 by SANDRA Plascencia) Household Members: Family Housing: House Alcohol intake: current Alcohol intake frequency: 3 or more drinks per day Alcohol type: beer Smoking Status: Never smoker Patient Interested in Nicotine Replacement: No Patient Given Instructions on How to Stop Smoking: No Second Hand Smoke Exposure: No Have you been hit, kicked, punched, or otherwise hurt by someone within the past year? If so, by whom?: No Are you DNR?: No Advance Directives: Yes Advance Directives on File: Yes Advance Directives Date on File: 04/11/20 Nutrition Risks: No Nutritional Risk service: Yes Current occupational status: retired Meds Allergies Allergy/AdvReac Type Severity Reaction Status Date / Time Penicillins Allergy Unknown Verified 03/03/20 01:30 Home Medications Medication Instructions Recorded Confirmed Last Taken Type furosemide [Lasix] 20 mg PO DAILY PRN 06/21/20 06/21/20 06/20/20 History rivaroxaban [Xarelto] 1 tab PO BEDTIME 07/09/20 07/09/20 07/08/20 06:30 History Exam Airway Mallampati Class: II TM Dist: >3cm Neck ROM: Full Assessment and Plan Assessment Anesthesia Assessment: Anesthesia Plan Discussed and Chart Reviewed Final Anesthetic Review NPO: Yes ASA Class: III Final Preanesthetic Review: No Changes in Pt Med Stat, Meds/Allgs Chart Reviewed, Consent Obtained/Reviewed and Anes Risks/Benef Reviewed Patient Risk: Intermediate Procedure Risk: Low Assessment/Block/Sedation in SS: Assess/Block/Sedation-SS Anesthetic Plan Anesthetic Plan: MAC: Disposition: Standard PACU
[2020-07-09 12:55] VITALS: BP 170/79; PULSE 84; RESP 20; TEMP 36.3; O2SAT 95; BMI 25.8
[2020-07-09] MEDS: Lactated Ringers 1,000 ML 100 ML IVCONT (13:24)
--- NOTE | 2020-07-09 13:26 | PC.NURSE ---
pt took his xarelto yesterday dr ellison aware and anesthesia
[2020-07-09 13:28] VITALS: BP 151/65; PULSE 80; RESP 18; TEMP 36.1; O2SAT 96
--- NOTE | 2020-07-09 14:38 | HO.ANESPROP2 ---
[facility] Active Problems Active Problems: All Active Problems (Updated 06/22/20 @ 13:09 by Jose Hummel MD) Cervical spondylitic cord compression (Acute) Syncope and collapse (Acute) GI bleeding (Acute) Fall (Acute) Upper arm pain (Acute) Anemia (Acute) Contusion of spinal cord (Acute) SOB (shortness of breath) on exertion (Acute) Mitral regurgitation (Acute) Paroxysmal atrial fibrillation (Acute) Heart failure with reduced ejection fraction (Acute) Hypomagnesemia (Acute) Cardiomyopathy (Acute) Alcohol use disorder (Acute) Hypertension (Acute) Atrial fibrillation (Acute) Pleural effusion, bilateral (Acute) Past Medical History Medical History Cardiomyopathy Heart failure with reduced ejection fraction Hypertension Mitral regurgitation New onset of congestive heart failure Paroxysmal atrial fibrillation Family History Family History Father Cancer Mother No problems noted. Social History Social History Household Members: Family Housing: House Alcohol intake: current Alcohol intake frequency: 3 or more drinks per day Alcohol type: beer Smoking Status: Never smoker Patient Interested in Nicotine Replacement: No Patient Given Instructions on How to Stop Smoking: No Second Hand Smoke Exposure: No Have you been hit, kicked, punched, or otherwise hurt by someone within the past year? If so, by whom?: No Are you DNR?: No Advance Directives: Yes Advance Directives on File: Yes Advance Directives Date on File: 04/11/20 Nutrition Risks: No Nutritional Risk service: Yes Current occupational status: retired Meds Allergies Allergy/AdvReac Type Severity Reaction Status Date / Time Penicillins Allergy Unknown Verified 03/03/20 01:30 Active Medications: Current Medications Generic Name Dose Route Start Last Admin Trade Name Freq PRN Reason Stop Dose Admin Lactated Ringer's 1,000 mls @ 100 mls/hr 07/09/20 12:45 07/09/20 13:24 Lr IVCONT 100 mls/hr .Q10H LYDIA Administration Sodium Biphosphate/Sodium Phosphate 133 ml 07/09/20 12:42 Sodium Phosphate,[place]-Dibasic 133 Ml Enema PA ONCE PRN Poor Colonoscopy Prep Results Home Medications Medication Instructions Recorded Confirmed Last Taken Type furosemide [Lasix] 20 mg PO DAILY PRN 06/21/20 06/21/20 06/20/20 History rivaroxaban [Xarelto] 1 tab PO BEDTIME 07/09/20 07/09/20 07/08/20 06:30 History Exam Exam Date and Time: July 09, 2020 1438 Height,Weight and Vital Signs: Height 5 ft 8 in Weight 77.111 kg Last Vital Signs Temp 97 F 07/09/20 13:28 Pulse 80 07/09/20 13:28 Resp 18 07/09/20 13:28 BP 151/65 H 07/09/20 13:28 Pulse Ox 96 07/09/20 13:28 Airway Mallampati Class: II TM Dist: >3cm Neck ROM: Full Assessment and Plan Assessment Anesthesia Assessment: Anesthesia Plan Discussed and Chart Reviewed Final Anesthetic Review NPO: Yes ASA Class: III Final Preanesthetic Review: No Changes in Pt Med Stat, Meds/Allgs Chart Reviewed, Consent Obtained/Reviewed and Anes Risks/Benef Reviewed Patient Risk: Intermediate Procedure Risk: Low Assessment/Block/Sedation in SS: Assess/Block/Sedation-SS Anesthetic Plan Anesthetic Plan: MAC: Disposition: Standard PACU
--- NOTE | 2020-07-09 14:42 | P.CONAN_ITS ---
[facility] Active Problems Active Problems: All Active Problems (Updated 06/22/20 @ 13:09 by Jose madden MD) Cervical spondylitic cord compression (Acute) Syncope and collapse (Acute) GI bleeding (Acute) Fall (Acute) Upper arm pain (Acute) Anemia (Acute) Contusion of spinal cord (Acute) SOB (shortness of breath) on exertion (Acute) Mitral regurgitation (Acute) Paroxysmal atrial fibrillation (Acute) Heart failure with reduced ejection fraction (Acute) Hypomagnesemia (Acute) Cardiomyopathy (Acute) Alcohol use disorder (Acute) Hypertension (Acute) Atrial fibrillation (Acute) Pleural effusion, bilateral (Acute) Past Medical History Medical History Cardiomyopathy Heart failure with reduced ejection fraction Hypertension Mitral regurgitation New onset of congestive heart failure Paroxysmal atrial fibrillation Family History Family History Father Cancer Mother No problems noted. Social History Social History Household Members: Family Housing: House Alcohol intake: current Alcohol intake frequency: 3 or more drinks per day Alcohol type: beer Smoking Status: Never smoker Patient Interested in Nicotine Replacement: No Patient Given Instructions on How to Stop Smoking: No Second Hand Smoke Exposure: No Have you been hit, kicked, punched, or otherwise hurt by someone within the past year? If so, by whom?: No Are you DNR?: No Advance Directives: Yes Advance Directives on File: Yes Advance Directives Date on File: 04/11/20 Nutrition Risks: No Nutritional Risk service: Yes Current occupational status: retired Meds Allergies Allergy/AdvReac Type Severity Reaction Status Date / Time Penicillins Allergy Unknown Verified 03/03/20 01:30 Active Medications: Current Medications Generic Name Dose Route Start Last Admin Trade Name Freq PRN Reason Stop Dose Admin Lactated Ringer's 1,000 mls @ 100 mls/hr 07/09/20 12:45 07/09/20 13:24 Lr IVCONT 100 mls/hr .Q10H LYDIA Administration Sodium Biphosphate/Sodium Phosphate 133 ml 07/09/20 12:42 Sodium Phosphate,[place]-Dibasic 133 Ml Enema ID ONCE PRN Poor Colonoscopy Prep Results Home Medications Medication Instructions Recorded Confirmed Last Taken Type furosemide [Lasix] 20 mg PO DAILY PRN 06/21/20 06/21/20 06/20/20 History rivaroxaban [Xarelto] 1 tab PO BEDTIME 07/09/20 07/09/20 07/08/20 06:30 History Exam Exam Date and Time: July 09, 2020 1442 Height,Weight and Vital Signs: Height 5 ft 8 in Weight 77.111 kg Last Vital Signs Temp 97 F 07/09/20 13:28 Pulse 80 07/09/20 13:28 Resp 18 07/09/20 13:28 BP 151/65 H 07/09/20 13:28 Pulse Ox 96 07/09/20 13:28
[2020-07-09 15:55] VITALS: BP 147/68; PULSE 81; RESP 16; TEMP 37.5; O2SAT 100
--- NOTE | 2020-07-09 16:02 | PM.OP ---
Brief Operative Note Date of Service: 07/09/20 Pre-op diagnosis: Anemia Procedure: EGD with placement of two resolution clips on bleeding gastric AVM. Colonoscopy to the cecum. Surgeon: Bret Gray Anesthesia: MAC Was an Health Information Technician used for this Procedure?: No Estimated blood loss (mL): 20.0 Pathology: none sent Condition: stable Disposition: PACU
[2020-07-09 16:10] VITALS: BP 162/81; PULSE 71; RESP 20; TEMP 36.7; O2SAT 100
[2020-07-09 16:19] LABS: MANUAL DIFF FLAG NO
[2020-07-09 16:21] LABS: Basophils Percent Auto 0.3 % (0-2); Eosinophils Absolute Auto 0.1 X10*3/uL (0.0-0.4); Eosinophils Percent Auto 1.1 % (0-4); Hematocrit 27.4 % (42-52); Hemoglobin 8.1 g/dl (14.0-18.0); Imm Gran Abs Auto 0.02 X10*3/uL (0.00-0.03); Imm Gran Pct Auto 0.3 % (0.0-0.4); Lymphocytes Absolute Auto 1.2 X10*3/uL (1.2-4.9); Lymphocytes Percent Auto 18.3 % (20-40); Mean Corpuscular HGB Conc 29.6 g/dl (31.0-36.0); Mean Corpuscular Volume 74.3 fL (80-98); Mean Platelet Volume 8.6 fL (9.4-12.4); Monocytes Absolute Auto 0.7 X10*3/uL (0.1-1.2); Neutrophils Absolute Auto 4.4 X10*3/uL (2.0-8.3); Platelet Count 150 X10*3/uL (160-400); Red Blood Count 3.69 X10*6/uL (4.60-5.80); Red Cell Distribution Width 19.4 % (11.0-16.0); White Blood Count 6.3 X10*3/uL (4.8-10.8)
[2020-07-09 16:27] LABS: INTERNATIONAL NORM RATIO 1.3 (0.9-1.1); Prothrombin Time 15.6 SEC (10.8-13.0)
--- NOTE | 2020-07-09 16:36 | PC.NURSE ---
patient stat labs drawn and back. labs reported to dr. ellison
--- NOTE | 2020-07-09 16:48 | PC.NURSE ---
per dr. ellison patient may transfer to home. labs similar to previous.
--- NOTE | 2020-07-09 20:50 | OP_ITS ---
SURGEON: Bret Gray MD INDICATIONS: The patient presents for evaluation of iron-deficiency anemia. Full consent has been obtained from him for this, including risks of bleeding and perforation. PREOPERATIVE DIAGNOSIS: Iron-deficiency anemia. POSTOPERATIVE DIAGNOSIS: PROCEDURE PERFORMED: Esophagogastroduodenoscopy with placement of 2 resolution clips and colonoscopy to the cecum. ESTIMATED BLOOD LOSS: COMPLICATIONS: ANESTHESIA: Monitored anesthesia care. 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 DESCRIPTION OF PROCEDURE: The patient was placed in the left lateral decubitus position. The Olympus video gastroscope was passed in the posterior oropharynx and upper esophagus under direct vision. The scope was passed slowly to the distal esophagus. The gastroesophageal junction appeared normal at 38 cm. There was no sign of any esophagitis, Ling's esophagus, ulceration, varices, nor mass. The scope entered into the stomach. There was a small hiatal hernia with normal appearing gastric mucosa. Immediately upon entering the stomach, a small amount of coffee-grounds material was noted. The scope was advanced to pylorus and duodenum was cannulated to the descending portion. The duodenum including the bulb appeared normal without mass or ulceration. There was no blood in the duodenum. The scope was withdrawn back into the stomach. The gastric antrum and body appeared normal with good peristalsis. Scope was retroflexed visualizing the proximal stomach carefully. There was no mass or ulceration. However, in the proximal stomach, was an actively bleeding area. Seen best in the forward viewing position in the proximal stomach along the greater curvature at approximately 45 cm was a bleeding angiodysplasia. The area was irrigated frequently, but continued to ooze bright red blood. Therefore, I placed 2 clips onto the angiodysplasia with good hemostasis and good deployment. I opted not to cauterize this given the fact that he was using Xarelto up until just yesterday. After the clips were applied, the area was watched for at least 5 or 10 minutes with irrigation and no further bleeding was noted. There was some blanching of the mucosa where clips were applied. The scope was then withdrawn back into the esophagus. The esophageal mucosa appeared normal. The scope was withdrawn from the patient. He was turned around for colonoscopy. The digital rectal exam revealed no abnormalities. The Olympus video pediatric colonoscope was entered into the rectum and advanced easily to the cecum. Once in the cecum, I did identify normal-appearing cecal pouch with appendiceal orifice and a normal-appearing ileocecal valve. There was transillumination of light deep in the right lower quadrant. The entire cecum and ileocecal valve appeared normal. The scope was slowly withdrawn assessing all mucosal surfaces carefully. Preparation was excellent. I did not visualize any sign of polyps, colitis, nor angiodysplasia. There was a mild amount of sigmoid diverticulosis. There was no blood nor melena in the colon. In the rectum, scope was retroflexed visualizing what appeared to be a fibroepithelial polyp at the dentate line. It did not appear adenomatous. Some internal hemorrhoids were noted as well. There was no bleeding. The scope was straightened out and withdrawn from the patient. He tolerated the procedures well and was returned to the recovery area in stable condition. IMPRESSION: 1. Bleeding gastric angiodysplasia, status post placement of 2 resolution clips with good hemostasis. 2. Small hiatal hernia. 3. Diverticulosis. 4. Fibroepithelial polyp of dentate line. 5. Internal hemorrhoids. PLAN: The patient will continue omeprazole 40 mg daily. He has been instructed to hold his Xarelto for at least several days. I will add Carafate 1 g t.i.d. to his regimen as well. If he continues to have evidence of GI bleeding, then he may need repeat upper endoscopy to reinspect the area of the angiodysplasia and consider other treatment such as argon plasma coagulation. If things are stable, he will see me in 1 or 2 months for a followup visit. He will have a CBC today before discharge and then another CBC in the next few weeks.. He was advised not to use any aspirin and NSAIDs long-term and to try to avoid alcohol. He will see me in the interim on a prn basis. This has been discussed with the patient and his sister. MD MALINI Veloz/LUDWIN / [id number] [email or web address]
== END 2020-07-09 16:48 | disposition home or self-care (01) ==
PROVIDERS: PCP Internal Medicine; Visit Provider Internal Medicine
PROC: (CPT 45378; principal; 2020-07-09 13:30)
DX: D50.9 Iron deficiency anemia, unspecified (principal); K57.30 Diverticulosis of large intestine without perforation or abscess without bleeding; K64.8 Other hemorrhoids; K62.89 Other specified diseases of anus and rectum; K31.811 Angiodysplasia of stomach and duodenum with bleeding; K44.9 Diaphragmatic hernia without obstruction or gangrene; I11.0 Hypertensive heart disease with heart failure; I50.20 Unspecified systolic (congestive) heart failure; I48.0 Paroxysmal atrial fibrillation; Z79.01 Long term (current) use of anticoagulants; Z79.899 Other long term (current) drug therapy
CPT/HCPCS: 45378; 43255; 36415; 85025; 85610; J3010

== ENCOUNTER 2020-07-13 10:45 | Outpatient (REF) | payer MEDICARE, SELFPAY ==
[2020-07-13 14:07] LABS: Hematocrit 30.8 % (42-52); Hemoglobin 9.1 g/dl (14.0-18.0); Mean Corpuscular HGB Conc 29.5 g/dl (31.0-36.0); Mean Corpuscular Hemoglobin 22.1 pg (27.0-33.0); Mean Corpuscular Volume 74.8 fL (80-98); Platelet Count 249 X10*3/uL (160-400); Red Blood Count 4.12 X10*6/uL (4.60-5.80); Red Cell Distribution Width 18.8 % (11.0-16.0); White Blood Count 7.1 X10*3/uL (4.8-10.8)
[2020-07-13 14:33] LABS: Anion Gap 14 (12-20); Blood Urea Nitrogen 24 mg/dL (9-16); Calcium 8.4 mg/dL (8.4-10.2); Carbon Dioxide 25 mmol/L (22-29); Chloride 107 mmol/L (96-108); Estimated Glomerular Filt Rate > 60; Glucose Fasting 101 mg/dL (60-99); Magnesium 1.9 mg/dL (1.6-2.6); Potassium 4.5 mmol/L (3.3-5.1); Sodium 141 mmol/L (135-145)
[2020-07-13 14:43] LABS: B Type Natriuretic Peptide 670 pg/mL (<100)
== END 2020-07-13 10:46 | disposition home or self-care (01) ==
LOC: HO.HMGCLDS 10:45
PROVIDERS: Hospitalist; Internal Medicine Cardiovascular Disease; PCP Internal Medicine; Visit Provider Internal Medicine
DX: D50.8 Other iron deficiency anemias (principal); I12.9 Hypertensive chronic kidney disease with stage 1 through stage 4 chronic kidney disease, or unspecified chronic kidney disease; I42.8 Other cardiomyopathies; I42.9 Cardiomyopathy, unspecified; I50.20 Unspecified systolic (congestive) heart failure; R06.02 Shortness of breath; I48.0 Paroxysmal atrial fibrillation; Z79.01 Long term (current) use of anticoagulants
CPT/HCPCS: 36415; 80048; 83735; 83880; 85027

== ENCOUNTER → 2020-07-19 12:50 | Outpatient (BNVA) | payer MEDICARE, SELFPAY | PROVIDERS: PCP Internal Medicine; Visit Provider Internal Medicine Cardiovascular Disease | DX: I34.0 Nonrheumatic mitral (valve) insufficiency (principal); I48.0 Paroxysmal atrial fibrillation; I50.20 Unspecified systolic (congestive) heart failure | CPT/HCPCS: 99212 ==

== ENCOUNTER 2020-08-17 11:34 | Outpatient (REF) | payer MEDICARE, SELFPAY ==
[2020-08-17 14:50] LABS: Hematocrit 31.3 % (42-52); Hemoglobin 9.2 g/dl (14.0-18.0); Mean Corpuscular HGB Conc 29.4 g/dl (31.0-36.0); Mean Corpuscular Hemoglobin 21.3 pg (27.0-33.0); Mean Corpuscular Volume 72.5 fL (80-98); Mean Platelet Volume 9.3 fL (9.4-12.4); Platelet Count 280 X10*3/uL (160-400); Red Blood Count 4.32 X10*6/uL (4.60-5.80); Red Cell Distribution Width 17.7 % (11.0-16.0); White Blood Count 8.6 X10*3/uL (4.8-10.8)
== END 2020-08-17 11:35 | disposition home or self-care (01) ==
LOC: HO.HMGCLDS 11:34
PROVIDERS: PCP Internal Medicine; Visit Provider Internal Medicine Cardiovascular Disease
DX: K92.2 Gastrointestinal hemorrhage, unspecified (principal)
CPT/HCPCS: 36415; 85027

== ENCOUNTER → 2020-08-22 10:44 | Outpatient (BNVA) | payer MEDICARE, SELFPAY | PROVIDERS: PCP Internal Medicine; Referring Provider Internal Medicine; Visit Provider Internal Medicine Cardiovascular Disease | DX: I34.0 Nonrheumatic mitral (valve) insufficiency (principal); I48.0 Paroxysmal atrial fibrillation; I50.20 Unspecified systolic (congestive) heart failure | CPT/HCPCS: 93005; 99212 ==

== ENCOUNTER 2020-08-29 09:36 | Outpatient (REF) | payer MEDICARE, SELFPAY ==
[2020-08-29 11:16] LABS: MANUAL DIFF FLAG NO
[2020-08-29 11:39] LABS: Basophils Percent Auto 0.4 % (0-2); Eosinophils Absolute Auto 0.1 X10*3/uL (0.0-0.4); Eosinophils Percent Auto 0.6 % (0-4); Hematocrit 36.5 % (42-52); Hemoglobin 10.9 g/dl (14.0-18.0); Imm Gran Abs Auto 0.05 X10*3/uL (0.00-0.03); Imm Gran Pct Auto 0.5 % (0.0-0.4); Lymphocytes Absolute Auto 1.6 X10*3/uL (1.2-4.9); Lymphocytes Percent Auto 16.5 % (20-40); Mean Corpuscular HGB Conc 29.9 g/dl (31.0-36.0); Mean Corpuscular Hemoglobin 22.1 pg (27.0-33.0); Mean Corpuscular Volume 73.9 fL (80-98); Mean Platelet Volume 9.2 fL (9.4-12.4); Monocytes Absolute Auto 0.9 X10*3/uL (0.1-1.2); Monocytes Percent Auto 9.5 % (2-11); Neutrophils Percent Auto 72.5 % (45-73); Platelet Count 235 X10*3/uL (160-400); Red Blood Count 4.94 X10*6/uL (4.60-5.80); Red Cell Distribution Width 21.2 % (11.0-16.0); White Blood Count 9.6 X10*3/uL (4.8-10.8)
[2020-08-29 11:46] LABS: Iron 95 mcg/dL (45-160); Percent Iron Saturation 22 % (15-50); Total Iron Binding Capacity 426 mcg/dL (228-428); Unsaturated Iron Binding 331 ug/dL
[2020-08-29 12:10] LABS: Ferritin 77 ng/mL (20-250)
== END 2020-08-29 09:37 | disposition home or self-care (01) ==
LOC: HO.HMGCLDS 09:36
PROVIDERS: PCP Internal Medicine; Visit Provider Internal Medicine
DX: D50.0 Iron deficiency anemia secondary to blood loss (chronic) (principal)
CPT/HCPCS: 36415; 82728; 83540; 85025

== ENCOUNTER 2020-08-29 12:05 | Day surgery (SDC) | payer MEDICARE, SELFPAY ==
--- NOTE | 2020-08-28 08:24 | HO.ANESPROP2 ---
HPI - Anesthesia Eval Consult details Narrative: 69yo M for MARK s/p EGD and [place] with TIVA 07/09/20 Recent [facility] admit with acute blood loss anemia/fall. Transfused 2 units. Recommended nonurgent EGD/[place]. Also started on steriods and neurosurg f/u for cervical cord compression. Per inpt neuro consult: He might require a Neurosurgery consultation but that was not urgent. As far as further investigations for GI bleed or endoscopy type of procedures are concerned, or local or general anesthesia, there was no neurological contraindication. [facility] Active Problems Active Problems: All Active Problems (Updated 06/22/20 @ 13:09 by Jose Hummel MD) Cervical spondylitic cord compression (Acute) Syncope and collapse (Acute) GI bleeding (Acute) Fall (Acute) Upper arm pain (Acute) Anemia (Acute) Contusion of spinal cord (Acute) SOB (shortness of breath) on exertion (Acute) Mitral regurgitation (Acute) Paroxysmal atrial fibrillation (Acute) Heart failure with reduced ejection fraction (Acute) Hypomagnesemia (Acute) Cardiomyopathy (Acute) Alcohol use disorder (Acute) Hypertension (Acute) Atrial fibrillation (Acute) Pleural effusion, bilateral (Acute) Past Medical History Medical History Cardiomyopathy Heart failure with reduced ejection fraction Hypertension Mitral regurgitation New onset of congestive heart failure Paroxysmal atrial fibrillation Family History Family History Father Cancer Mother No problems noted. Social History Social History Household Members: Family Housing: House Are you a primary home health care social worker to a significant other at home: No Do you presently have visiting nurse or other home services: No Alcohol intake: current Alcohol intake frequency: 3 or more drinks per day Alcohol type: beer Patient Tobacco Use Status: Never used Tobacco Second Hand Smoke Exposure: No Use of substances other than those prescribed or required for medical reasons: No Are you DNR?: No Advance Directives: No Advance Directives Information Provided: No Advance Directives on File: No Advance Directives Date on File: 04/11/20 service: Yes Current occupational status: retired Meds Allergies Allergy/AdvReac Type Severity Reaction Status Date / Time Penicillins Allergy Unknown Verified 03/03/20 01:30 Home Medications Medication Instructions Recorded Confirmed Last Taken Type sucralfate 1 gram tablet 1 g PO QID 08/22/20 08/22/20 08/29/20 History Exam Exam Date and Time: August 28, 2020 0824 Pertinent Lab Results Pertinent Lab Results: Laboratory Tests 07/13/20 08/17/20 10:53 11:41 WBC 8.6 Hgb 9.2 L Hct 31.3 L Plt Count 280 Sodium 141 Potassium 4.5 Chloride 107 Carbon Dioxide 25 BUN 24 H Creatinine 1.09 Narrative Narrative: EKG 08/2020 normal sinus rhythm with PAC otherwise normal EKG ECHO 05/25/20 Conclusions: - 1. Low normal LV systolic function LVEF 50-55% 2. Dilated right ventricle with low normal RV systolic function 3. Severely dilated left atrium 4. Moderate to severe eccentric mitral regurgitation 5. Normal calculated RV systolic pressure 6. No pericardial effusion Assessment and Plan Assessment Anesthesia Assessment: Chart Reviewed
[2020-08-28 10:10] VITALS: BMI 24.9
--- NOTE | 2020-08-29 06:59 | CA_ITS ---
Transesophageal Echocardiogram Patient (Last, First, Middle): Ambrocio Askew, Gender: Male Date of : 1950 Age: 69 Procedure Date: 08/29/2020 Procedure Type: Transesophageal Echocardiogram Location: OP Height: 165.1 cm Weight: kg Pharmaceutical Plant Operator: ASIF Referring MD: Francisco Corral MD Manager Supply: Francisco Corral MD Symptoms: I34.0 - Nonrheumatic mitral (valve) insufficiency Conclusion: ??? 1. Normal LV systolic and diastolic function 2. Partially flail P2 scallop of the posterior leaflet with severe eccentric mitral regurgitation 3. Mildly dilated left atrium 4. No intracardiac masses, thrombi or vegetations 5. No gross pericardial effusion Findings Procedure Information Consent was obtained prior to the procedure. Pre MARK oral cavity was checked and revealed no overcrowding. The adult 3D probe was passed with no difficulty. This was a technically good study. Left Ventricle Normal left ventricular size, thickness, and systolic function. The visually estimated ejection fraction is between 60-65%. Diastolic function is normal for age. Right Ventricle Normal right ventricular cavity size and systolic function. Atria The left atrium is mildly dilated. There is lipomatous hypertrophy of the interatrial septum. There is no evidence of interatrial shunt. There are no masses, clots or smoke formation seen within the left atrium. The left atrial appendage was identified in multiple views with no evidence of clots or smoke formation. The left upper, right upper and right lower pulmonary veins were identified draining normally into the left atrium. The right atrium is normal in size. The IVC and SVC drain normally into the right atrium. No clots or masses seen within the right atrial cavity. Aortic Valve Normal aortic valve structure and function. There is no aortic valve stenosis. There is no evidence of a mass on the aortic valve. There is no aortic valve regurgitation. No vegetations Mitral Valve The mitral valve appears myxomatous. There is mild anterior mitral leaflet prolapse and a flail posterior mitral leaflet involving the middle scallop/P2. There is severe mitral valve regurgitation. The mitral regurgitation jet is directed anteriorly. There is no mitral valve stenosis. There is no mass noted on the mitral valve. there is partial flail of the P2 scallop with poor coaptation leading to eccentric jet of mitral regurgitation. This mitral regurgitation appears to be severe and eccentric hugging the atrial surface of the anterior mitral leaflets and directed anteriorly and towards the septum. There is pulmonary flow reversal in the right upper pulmonary vein. the measured effective regurgitant orifice area is 0.4 centimeters sq which is consistent with severe mitral regurgitation. Pulmonic Valve The pulmonic valve is likely normal. There is mild pulmonic valve regurgitation. Tricuspid Valve Normal tricuspid valve structure. There is trace tricuspid valve regurgitation. Great Vessels All visible segments of the aorta are normal in size. The visualized portions of the pulmonary artery and branches are normal. Pericardium/Pleural There is no evidence of pericardial effusion. Prior Study Comparison There is partially flail posterior mitral leaflet with severe eccentric mitral regurgitation Measurements Mitral Valve MR Vol - PW Dopp: 42.80 MR VTI: 1.07 MR ERO: 40.00 MR Alias Willie: 0.31 MR RAD: 1.00 Updated by Francisco Corral on 05:12 PM with Status of Final Francisco Corral MD electronically signed on 08/29/2020 5:12:54 PM with status of Final
--- NOTE | 2020-08-29 08:21 | MHC.SHP ---
Pre-Procedural Eval Section A The patient is an INPATIENT: No Changes since office visit: Yes Patient answered all questions; No Cold of Flu in the past 2 weeks, No New Medical Problems and No Changes in Medication Section B Chief Complaint: mitral valve insufficiency Allergies: Allergies Allergy/AdvReac Type Severity Reaction Status Date / Time Penicillins Allergy Unknown Verified 03/03/20 01:30 Plan I have reviewed the history and physical and performed a pertinent physical examination on my patient. No changes have occurred unless specified.
[2020-08-29 12:32] VITALS: BP 154/60; PULSE 86; RESP 18; TEMP 35.9; O2SAT 99
[2020-08-29] MEDS: Lactated Ringers 1,000 ML 50 ML IVCONT (12:58)
--- NOTE | 2020-08-29 14:04 | HO.ANESPROP2 ---
[facility] Active Problems Active Problems: All Active Problems (Updated 06/22/20 @ 13:09 by Jose Hummel MD) Cervical spondylitic cord compression (Acute) Syncope and collapse (Acute) GI bleeding (Acute) Fall (Acute) Upper arm pain (Acute) Anemia (Acute) Contusion of spinal cord (Acute) SOB (shortness of breath) on exertion (Acute) Mitral regurgitation (Acute) Paroxysmal atrial fibrillation (Acute) Heart failure with reduced ejection fraction (Acute) Hypomagnesemia (Acute) Cardiomyopathy (Acute) Alcohol use disorder (Acute) Hypertension (Acute) Atrial fibrillation (Acute) Pleural effusion, bilateral (Acute) Past Medical History Medical History Cardiomyopathy Heart failure with reduced ejection fraction Hypertension Mitral regurgitation New onset of congestive heart failure Paroxysmal atrial fibrillation Family History Family History Father Cancer Mother No problems noted. Family history of problems with anesthesia: No Surgical History History of Problems with Anesthesia: No Social History Social History Household Members: Family Housing: House Are you a primary health care coordinator to a significant other at home: No Do you presently have visiting nurse or other home services: No Alcohol intake: current Alcohol intake frequency: 3 or more drinks per day Alcohol type: beer Patient Tobacco Use Status: Never used Tobacco Second Hand Smoke Exposure: No Use of substances other than those prescribed or required for medical reasons: No Are you DNR?: No Advance Directives: No Advance Directives Information Provided: No Advance Directives on File: No Advance Directives Date on File: 04/11/20 service: Yes Current occupational status: retired Meds Allergies Allergy/AdvReac Type Severity Reaction Status Date / Time Penicillins Allergy Unknown Verified 03/03/20 01:30 Active Medications: Current Medications Generic Name Dose Route Start Last Admin Trade Name Freq PRN Reason Stop Dose Admin Lactated Ringer's 1,000 mls @ 50 mls/hr 08/29/20 12:30 08/29/20 12:58 Lr IVCONT 50 mls/hr .Q20H LYDIA Administration Sodium Chloride 3 ml 08/29/20 16:00 0.9 % Sodium Chloride Flush 3 Ml Syringe IVFLUSH QSHIFT LYDIA Home Medications Medication Instructions Recorded Confirmed Last Taken Type sucralfate 1 gram tablet 1 g PO QID 08/22/20 08/22/20 08/29/20 History Exam Exam Date and Time: August 29, 2020 1404 Height,Weight and Vital Signs: Height 5 ft 8 in Weight 74.4 kg Last Vital Signs Temp 96.7 F L 08/29/20 12:32 Pulse 86 08/29/20 12:32 Resp 18 08/29/20 12:32 BP 154/60 H 08/29/20 12:32 Pulse Ox 99 08/29/20 12:32 Airway Mallampati Class: I TM Dist: >3cm Loose/Missing/Broken Teeth: Yes, Upper and Lower Heart: 2-3/6 HSM Lungs: clear
[2020-08-29 14:55] VITALS: BP 99/44; PULSE 94; RESP 18; TEMP 36.6; O2SAT 100
--- NOTE | 2020-08-29 15:04 | HO.POSTANES ---
Post Anesthesia Evaluation Post Anesthesia Evaluation Vital Signs: Vital Signs Temp Pulse Resp BP Pulse Ox 08/29/20 14:55 97.8 F 94 18 99/44 L 100 08/29/20 12:32 96.7 F L 86 18 154/60 H 99 Anesthesia: Monitored Mental Status: Awake Pain Control: Satisfactory Nausea/Vomiting: None Hydration: Adequate Anesthesia-Related Issues: No Anes. Related Issues
[2020-08-29 15:10] VITALS: BP 103/58; PULSE 70; RESP 18; O2SAT 100
[2020-08-29 15:21] VITALS: BP 112/64; PULSE 74; RESP 18; O2SAT 99
--- NOTE | 2020-08-29 16:01 | HO.POSTANES ---
Post Anesthesia Evaluation Post Anesthesia Evaluation Vital Signs: Vital Signs Temp Pulse Resp BP Pulse Ox 08/29/20 15:21 74 18 112/64 99 08/29/20 15:10 70 18 103/58 L 100 08/29/20 14:55 97.8 F 94 18 99/44 L 100 08/29/20 12:32 96.7 F L 86 18 154/60 H 99 Anesthesia: Monitored Mental Status: Awake Pain Control: Satisfactory Nausea/Vomiting: None Hydration: Adequate Anesthesia-Related Issues: No Anes. Related Issues
== END 2020-08-29 15:59 | disposition home or self-care (01) ==
PROVIDERS: PCP Internal Medicine; Visit Provider Internal Medicine Cardiovascular Disease
PROC: (CPT 93312; principal; 2020-08-29 14:00)
DX: I34.0 Nonrheumatic mitral (valve) insufficiency (principal); I42.9 Cardiomyopathy, unspecified; I50.20 Unspecified systolic (congestive) heart failure; I11.0 Hypertensive heart disease with heart failure; I48.0 Paroxysmal atrial fibrillation; Z79.899 Other long term (current) drug therapy; Z88.0 Allergy status to penicillin
CPT/HCPCS: 93312; J2370; J3010

== ENCOUNTER → 2020-09-12 10:34 | Outpatient (BNVA) | payer MEDICARE, SELFPAY | PROVIDERS: PCP Internal Medicine; Referring Provider Internal Medicine; Visit Provider Internal Medicine Cardiovascular Disease | DX: I34.0 Nonrheumatic mitral (valve) insufficiency (principal); I48.0 Paroxysmal atrial fibrillation; I50.20 Unspecified systolic (congestive) heart failure | CPT/HCPCS: 93005; 99212 ==

== ENCOUNTER 2020-09-25 08:06 | Outpatient (REF) | payer MEDICARE, SELFPAY ==
[2020-09-25 11:25] LABS: MANUAL DIFF FLAG NO
[2020-09-25 11:33] LABS: Basophils Absolute Auto 0.1 X10*3/uL (0.0-0.2); Basophils Percent Auto 0.7 % (0-2); Eosinophils Absolute Auto 0.1 X10*3/uL (0.0-0.4); Eosinophils Percent Auto 1.2 % (0-4); Hematocrit 37.4 % (42-52); Hemoglobin 11.4 g/dl (14.0-18.0); Imm Gran Abs Auto 0.01 X10*3/uL (0.00-0.03); Imm Gran Pct Auto 0.1 % (0.0-0.4); Lymphocytes Absolute Auto 1.5 X10*3/uL (1.2-4.9); Lymphocytes Percent Auto 21.7 % (20-40); Mean Corpuscular HGB Conc 30.5 g/dl (31.0-36.0); Mean Corpuscular Hemoglobin 24.3 pg (27.0-33.0); Mean Corpuscular Volume 79.7 fL (80-98); Mean Platelet Volume 9.3 fL (9.4-12.4); Monocytes Absolute Auto 0.7 X10*3/uL (0.1-1.2); Monocytes Percent Auto 10.8 % (2-11); Neutrophils Absolute Auto 4.4 X10*3/uL (2.0-8.3); Neutrophils Percent Auto 65.5 % (45-73); Platelet Count 192 X10*3/uL (160-400); Red Blood Count 4.69 X10*6/uL (4.60-5.80); Red Cell Distribution Width 22.6 % (11.0-16.0); White Blood Count 6.7 X10*3/uL (4.8-10.8)
[2020-09-25 11:42] LABS: Iron 28 mcg/dL (45-160); Percent Iron Saturation 7 % (15-50); Total Iron Binding Capacity 379 mcg/dL (228-428); Unsaturated Iron Binding 351 ug/dL
[2020-09-25 11:57] LABS: Ferritin 44 ng/mL (20-250)
== END 2020-09-25 08:07 | disposition home or self-care (01) ==
LOC: HO.HMGCLDS 08:06
PROVIDERS: PCP Internal Medicine; Visit Provider Internal Medicine
DX: D50.0 Iron deficiency anemia secondary to blood loss (chronic) (principal)
CPT/HCPCS: 36415; 82728; 83540; 85025

== ENCOUNTER 2020-10-29 08:00 | Outpatient (REF) | payer MEDICARE, SELFPAY ==
--- NOTE | ~2020-10-29 | US_ITS ---
EXAMINATION: US EXTRACRANIAL CAROTID DUPLEX, BILATERAL CLINICAL INFORMATION: This is a 70-year-old male with history of syncope, atrial fibrillation, congestive heart failure. COMPARISON: None TECHNIQUE: Real-time ultrasound and Doppler techniques (integrating B-mode 2-D vascular images, Doppler spectral analysis and color-flow Doppler imaging) were utilized to interrogate the extracranial carotid arteries, the vertebral arteries and proximal subclavian arteries bilaterally. The degree of stenosis is determined by criteria similar to NASCET. FINDINGS: Right Side: 1. There is minimal atherosclerotic plaque seen in the bifurcation/proximal ICA region. 2. The common carotid artery PSV proximally is 96 cm/s and distally 72 cm/s. 3. The proximal internal carotid artery velocities are 54 cm/s systolic and 11 cm/s diastolic. 4. The proximal external carotid artery PSV is 68 cm/s. 5. The vertebral artery shows antegrade flow. 6. The subclavian artery waveforms are normal. Left Side: 1. There is minimal atherosclerotic plaque seen in the bifurcation/proximal ICA region. 2. The common carotid artery PSV proximally is 69 cm/s and distally 47 cm/s. 3. The proximal internal carotid artery velocities are 100 cm/s systolic and 31 cm/s diastolic. 4. The proximal external carotid artery PSV is 59 cm/s. 5. The vertebral artery shows antegrade flow. 6. The subclavian artery waveforms are normal. US/US carotid duplex BI IMPRESSION: 1. RIGHT: Minimal, non-hemodynamically significant stenosis of the proximal right internal carotid artery corresponding to a 0-49% stenosis by velocity criteria. 2. LEFT: Minimal, non-hemodynamically significant stenosis of the proximal left internal carotid artery corresponding to a 0-49% stenosis by velocity criteria. 3. Incidental note is made of a cardiac arrhythmia during the duplex portion of the examination. This would be best evaluated with ultrasound.
== END 2020-10-29 08:01 | disposition home or self-care (01) ==
LOC: HO.HMGCX 08:00
PROVIDERS: PCP Internal Medicine; Visit Provider Internal Medicine Cardiovascular Disease
DX: Z01.811 Encounter for preprocedural respiratory examination (principal); I42.9 Cardiomyopathy, unspecified; I50.20 Unspecified systolic (congestive) heart failure; R55 Syncope and collapse; I48.91 Unspecified atrial fibrillation
CPT/HCPCS: 93880

== ENCOUNTER → 2020-12-11 09:47 | Outpatient (BNVA) | payer MEDICARE, SELFPAY | PROVIDERS: PCP Internal Medicine; Visit Provider Nurse Practitioner Family | DX: I50.20 Unspecified systolic (congestive) heart failure (principal); I42.9 Cardiomyopathy, unspecified; I48.0 Paroxysmal atrial fibrillation; I34.0 Nonrheumatic mitral (valve) insufficiency; K92.2 Gastrointestinal hemorrhage, unspecified; Z98.890 Other specified postprocedural states | CPT/HCPCS: 99212 ==

== ENCOUNTER 2020-12-25 09:03 | Outpatient (REF) | payer MEDICARE, SELFPAY ==
[2020-12-25 11:39] LABS: MANUAL DIFF FLAG NO
[2020-12-25 11:49] LABS: Basophils Percent Auto 0.3 % (0-2); Eosinophils Absolute Auto 0.1 X10*3/uL (0.0-0.4); Eosinophils Percent Auto 0.7 % (0-4); Hemoglobin 14.1 g/dl (14.0-18.0); Imm Gran Abs Auto 0.06 X10*3/uL (0.00-0.03); Imm Gran Pct Auto 0.7 % (0.0-0.4); Lymphocytes Absolute Auto 1.3 X10*3/uL (1.2-4.9); Lymphocytes Percent Auto 14.4 % (20-40); Mean Corpuscular HGB Conc 35.3 g/dl (31.0-36.0); Mean Corpuscular Hemoglobin 30.8 pg (27.0-33.0); Mean Corpuscular Volume 87.3 fL (80-98); Mean Platelet Volume 9.6 fL (9.4-12.4); Monocytes Absolute Auto 0.9 X10*3/uL (0.1-1.2); Monocytes Percent Auto 9.5 % (2-11); Neutrophils Absolute Auto 6.6 X10*3/uL (2.0-8.3); Neutrophils Percent Auto 74.4 % (45-73); Platelet Count 159 X10*3/uL (160-400); Red Blood Count 4.58 X10*6/uL (4.60-5.80); Red Cell Distribution Width 14.6 % (11.0-16.0); White Blood Count 8.9 X10*3/uL (4.8-10.8)
[2020-12-25 12:18] LABS: Iron 225 mcg/dL (45-160); Percent Iron Saturation 69 % (15-50); Total Iron Binding Capacity 325 mcg/dL (228-428); Unsaturated Iron Binding 100 ug/dL
[2020-12-25 12:20] LABS: Ferritin 128 ng/mL (20-250)
== END 2020-12-25 09:04 | disposition home or self-care (01) ==
LOC: HO.HMGCLDS 09:03
PROVIDERS: PCP Internal Medicine; Visit Provider Internal Medicine
DX: D50.0 Iron deficiency anemia secondary to blood loss (chronic) (principal)
CPT/HCPCS: 36415; 82728; 83540; 85025

== ENCOUNTER → 2021-03-21 10:09 | Outpatient (BNVA) | payer MEDICARE, SELFPAY | PROVIDERS: PCP Internal Medicine; Visit Provider Internal Medicine Cardiovascular Disease | DX: I34.0 Nonrheumatic mitral (valve) insufficiency (principal); I48.0 Paroxysmal atrial fibrillation; I50.9 Heart failure, unspecified | CPT/HCPCS: 93005; 99212 ==

== ENCOUNTER → 2021-04-11 10:58 | Outpatient (REF) | payer MEDICARE, SELFPAY ==
--- NOTE | 2021-04-11 11:06 | HM_ITS ---
Total monitoring time 3 days and 11 hours. Underlying rhythm is sinus. Average heart rate of 80/Min, ranged between 54-126/Min. Very frequent supraventricular ectopy with the burden of almost 20%. Several supraventricular episodes, about one thousand; longest 16 minutes; these could be atrial fibrillation vs atrial tachycardia in different areas. Fastest rate 165/Min. Frequent ventricular ectopy with the burden of about 4%;10 short runs noted; longest 4 beats. No patient events. MTDD
--- NOTE | 2021-04-11 11:06 | CA_ITS ---
Transthoracic Echocardiogram Patient (Last, First, Middle): Ambrocio Askew, Gender: Male Date of : 1950 Age: 70 Procedure Date: 04/11/2021 Procedure Type: Transthoracic Echocardiogram Location: OP Height: 172.72 cm Weight: 77.11 kg BSA: 1.91 m2 Heart Rate: bpm BP: 135 / 86 mmHg Call Center Dispatcher: HERNÁN Referring MD: Francisco Corral MD Symptoms: I34.0 - Nonrheumatic mitral (valve) insufficiency Study Quality: Fair/contrast Conclusions: - The left ventricular systolic function is normal. The calculated ejection fraction is 57% by biplane method. - The left atrium is severely dilated. - There is moderate mitral valve regurgitation. The mitral regurgitation jet is directed anteriorly. Could be underestimated due to eccentricity. Possible flail posterior leaflet, but not well visualized. Findings Procedure Information Contrast agent, definity, is being given per protocol without apparent complications. Left Ventricle Normal left ventricular cavity size. There is mildly increased left ventricular wall thickness. The left ventricular systolic function is normal. The calculated ejection fraction is 57% by biplane method. There is no evidence of regional wall motion abnormalities. E/E prime ratio is >15, consistent with elevated filling pressures. Evidence suggests grade II (moderate) diastolic dysfunction. Right Ventricle Normal right ventricular cavity size and systolic function. Atria The left atrium is severely dilated. The right atrium is mildly dilated. Aortic Valve There is a normal trileaflet aortic valve. There is mild calcification of the aortic valve. There is no aortic valve stenosis. There is no aortic valve regurgitation. Mitral Valve There is mild anterior mitral leaflet thickening. There is moderate posterior mitral annular calcification. There is moderate mitral valve regurgitation. The mitral regurgitation jet is directed anteriorly. There is no mitral valve stenosis. Possible flail posterior leaflet, but not well visualized. Pulmonic Valve The pulmonic valve is likely normal. Tricuspid Valve Normal tricuspid valve structure. There is trace tricuspid valve regurgitation. The pulmonary artery systolic pressure is normal. Great Vessels The aortic annulus, sinuses of valsalva, and asc aorta are normal in size. Venous The inferior vena cava is mildly dilated and collapses greater than 50% with inspiration. Pericardium/Pleural There is no evidence of pericardial effusion. Prior Study Comparison No significant change compared to prior study dated: 08/29/2020. Measurements 2D Linear Measurements IVSd: 1.15 0.6-0.9/0.6-1.0 cm LVIDd: 5.47 3.9-5.3/4.2-5.9 cm LVIDd Index: 2.86 2.4-3.2/2.2-3.1 cm/m2 LVIDs: 4.00 2.0-3.6 cm LVPWd: 1.19 0.7-1.1 cm Ao Root: 3.10 2.1-3.5 cm LA Diam: 4.90 2.7-3.8/3.0-4.0 cm LAIDs Index: 2.57 1.5-2.3 cm/m2 LV Mass: 325.22 67-162/88-224 g LV Mass Index: 170.27 43-95/49-115 g/m2 LVOT Diam: 2.30 3.0+(-)1.3 cm 2D Systolic Function EF 4C: 55.20 >55% EF 2C: 59.60 >55% EF BiP: 56.50 >55% Mitral Valve MV VTI: 0.28 MV Pk Willie: 1.19 MV Mn Willie: 0.65 MV Pk Grad: 6.00 MV Mn Grad: 2.00 MV Pk E: 1.16 MV PK A: 0.57 MV Decel Time: 162.00 E/A: 2.00 E'Lateral: 9.46 E'Medial: 6.64 E/E' Med: 17.50 E/E' Lat: 12.30 PHT: 47.00 MVA PHT: 4.68 MVA Continuity: 2.34 Decel Whiteside: 7.18 Aortic Valve AoV Pk Willie: 0.96 AoV Mn Willie: 0.75 AoV VTI: 0.24 AoV Pk Grad: 4.00 Aov Mn Grad: 2.00 CED Cont.VTI: 2.73 LVOT LVOT Pk Willie: 0.78 LVOT Mn Willie: 0.51 LVOT VTI: 0.16 LVOT Pk Grad: 2.00 LVOT Mn Grad: 1.00 LVOT Diam: 2.30 LVOT Area: 4.15 Diastolic Function MV Pk E: 1.16 MV Pk A: 0.57 E/A: 2.00 E'Medial: 6.64 E/E' Med: 17.50 E' Laterial: 9.46 E/E' Lat: 12.30 Right Ventricle TAPSE (mm): 27.70 TVS' Willie: 12.10 Tricuspid Valve TR Pk Willie: 1.03 TR Pk Grad: 4.00 Great Vessels Aorta Ao Root-2D: 3.10 2.0-3.7 cm Ao Asc: 3.20 2.1-3.4 cm Ao Arch: 3.30 Updated in Other Vendor System with Status of Final Juancho Ribera MD electronically signed on 04/13/2021 12:28:38 PM with status of Final
== END ==
LOC: HO.CARD 10:58
PROVIDERS: PCP Internal Medicine; Visit Provider Internal Medicine Cardiovascular Disease
DX: I48.0 Paroxysmal atrial fibrillation (principal); I34.0 Nonrheumatic mitral (valve) insufficiency
CPT/HCPCS: 93242; 93306; Q9957

== ENCOUNTER → 2021-04-11 10:58 | Outpatient (REF) | payer MEDICARE, SELFPAY | LOC: HO.CARD 10:58 | PROVIDERS: Visit Provider Internal Medicine Cardiovascular Disease | DX: I34.0 Nonrheumatic mitral (valve) insufficiency (principal) | CPT/HCPCS: Q9957 ==

== ENCOUNTER → 2021-05-01 10:15 | Outpatient (BNVA) | payer MEDICARE, SELFPAY | PROVIDERS: PCP Internal Medicine; Referring Provider Internal Medicine; Visit Provider Internal Medicine Cardiovascular Disease | DX: I34.0 Nonrheumatic mitral (valve) insufficiency (principal); I48.0 Paroxysmal atrial fibrillation; I50.9 Heart failure, unspecified | CPT/HCPCS: 99212 ==

== ENCOUNTER 2021-05-10 09:10 | Outpatient (REF) | payer MEDICARE, SELFPAY ==
[2021-05-10 11:29] LABS: MANUAL DIFF FLAG NO
[2021-05-10 11:40] LABS: Basophils Percent Auto 0.5 % (0-2); Eosinophils Absolute Auto 0.2 X10*3/uL (0.0-0.4); Eosinophils Percent Auto 2.4 % (0-4); Hematocrit 45.4 % (42.0-52.0); Hemoglobin 15.7 g/dl (14.0-18.0); Imm Gran Abs Auto 0.02 X10*3/uL (0.00-0.03); Imm Gran Pct Auto 0.3 % (0.0-0.4); Lymphocytes Absolute Auto 1.5 X10*3/uL (1.2-4.9); Lymphocytes Percent Auto 19.9 % (20-40); Mean Corpuscular HGB Conc 34.6 g/dl (31.0-36.0); Mean Corpuscular Hemoglobin 32.2 pg (27.0-33.0); Mean Platelet Volume 9.5 fL (9.4-12.4); Monocytes Absolute Auto 0.7 X10*3/uL (0.1-1.2); Monocytes Percent Auto 9.5 % (2-11); Neutrophils Percent Auto 67.4 % (45-73); Platelet Count 182 X10*3/uL (160-400); Red Blood Count 4.88 X10*6/uL (4.60-5.80); Red Cell Distribution Width 12.3 % (11.0-16.0); White Blood Count 7.5 X10*3/uL (4.8-10.8)
[2021-05-10 12:07] LABS: Alanine Aminotransferase 22 U/L (0-40); Albumin Level 4.1 g/dL (3.5-5.0); Alkaline Phosphatase 62 U/L (39-117); Anion Gap 12 (12-20); Aspartate Amino Transferase 31 U/L (5-37); Bilirubin Total 1.5 mg/dL (0.0-1.0); Blood Urea Nitrogen 13 mg/dL (9-16); Calcium 9.6 mg/dL (8.4-10.2); Carbon Dioxide 29 mmol/L (22-29); Chloride 97 mmol/L (96-108); Cholesterol 151 mg/dL; Estimated Glomerular Filt Rate > 60; Glucose Random 102 mg/dL (60-115); HDL Cholesterol 52 mg/dL; LDL Cholesterol Calculated 86 mg/dl; Potassium 5.3 mmol/L (3.3-5.1); Sodium 133 mmol/L (135-145); Triglycerides 67 mg/dL
[2021-05-10 12:11] LABS: Ferritin 244 ng/mL (20-250)
== END 2021-05-10 09:11 | disposition home or self-care (01) ==
LOC: HO.HMGCLDS 09:10
PROVIDERS: Visit Provider Internal Medicine
DX: D50.8 Other iron deficiency anemias (principal); I34.0 Nonrheumatic mitral (valve) insufficiency; I48.91 Unspecified atrial fibrillation; I50.32 Chronic diastolic (congestive) heart failure
CPT/HCPCS: 36415; 80053; 80061; 82728; 85025

== ENCOUNTER → 2021-06-12 10:13 | Day surgery (SDC) | payer MEDICARE, SELFPAY ==
[2021-06-07 09:44] VITALS: BMI 26.7
--- NOTE | 2021-06-11 09:08 | HO.ANESPROP2 ---
HPI - Anesthesia Eval Consult details Narrative: CX'd DOS d/t URI with productive cough and wheezing 70yo M for Transesophageal Echocardiogram afib, no anticoag PMFSH Active Problems Active Problems: All Active Problems (Updated 06/07/21 @ 09:42 by Kimber Perez RN) Pleural effusion, bilateral (Acute) Alcohol use disorder (Acute) Hypomagnesemia (Acute) SOB (shortness of breath) on exertion (Acute) Fall (Acute) Upper arm pain (Acute) Anemia (Acute) Contusion of spinal cord (Acute) GI bleeding (Acute) Syncope and collapse (Acute) Cervical spondylitic cord compression (Acute) Status post cardiac catheterization (Acute) Congestive heart failure (Acute) Mitral regurgitation (Acute) Paroxysmal atrial fibrillation (Acute) Cardiomyopathy (Acute) Hypertension (Acute) Past Medical History Medical History (Updated 06/07/21 @ 09:42 by Kimber Perez RN) Atrial fibrillation Cardiomyopathy Congestive heart failure GI bleed Heart failure with reduced ejection fraction History of cardioversion Hypertension Mitral regurgitation New onset of congestive heart failure Paroxysmal atrial fibrillation Family History Family History Father Cancer Mother No problems noted. Family history of problems with anesthesia: No Surgical History Surgical History (Updated 06/07/21 @ 09:39 by Kimber Perez RN) H/O colonoscopy History of esophagogastroduodenoscopy (EGD) History of Problems with Anesthesia: No Social History Social History Household Members: Family Housing: House Are you a primary healthcare insurance sales agent to a significant other at home: No Do you presently have visiting nurse or other home services: No Alcohol intake: current Alcohol intake frequency: 3 or more drinks per day Alcohol type: beer Patient Tobacco Use Status: Never used Tobacco Second Hand Smoke Exposure: No Advance Directives: Yes Advance Directives Information Provided: Yes Advance Directives on File: Yes (per notation on prior medical record) Advance Directives Date on File: 04/11/20 service: Yes Current occupational status: retired Meds Allergies Allergy/AdvReac Type Severity Reaction Status Date / Time Penicillins Allergy Unknown Verified 03/03/20 01:30 Home Medications Medication Instructions Recorded Confirmed Last Taken Type sucralfate 1 gram tablet 1 g PO QID 08/22/20 06/07/21 08/29/20 History omeprazole 40 mg capsule,delayed 40 mg PO DAILY 09/12/20 06/07/21 Unknown History release Exam Exam Date and Time: June 11, 2021 0908 Height,Weight and Vital Signs: Height 5 ft 8 in Weight 79.832 kg Pertinent Lab Results Pertinent Lab Results: Laboratory Tests 05/10/21 05/10/21 09:20 09:20 WBC 7.5 Hgb 15.7 Hct 45.4 Plt Count 182 Sodium 133 L Potassium 5.3 H Chloride 97 Carbon Dioxide 29 BUN 13 Creatinine 1.08 Narrative Narrative: ECHO 04/2021 Conclusions: - The left ventricular systolic function is normal.? The ? calculated ejection fraction is 57% by biplane method. ? - The left atrium is severely dilated. ? - There is moderate mitral valve regurgitation.? The mitral? ? ? regurgitation jet is directed anteriorly. Could be underestimated due to eccentricity. Possible flail posterior leaflet, but not ? well visualized. ?? 3 Day Holter 04/2021 Total monitoring time 3 days and 11 hours.? Underlying rhythm is sinus.? Average heart rate of 80/Min, ranged between 54-126/Min.? Very frequent supraventricular ectopy with the burden of almost 20%.? Several supraventricular episodes, about one thousand; longest 16 minutes; these could be atrial fibrillation vs atrial tachycardia in different areas. Fastest rate 165/Min.? Frequent ventricular ectopy with the burden of about 4%;10 short runs noted; longest 4 beats.? No patient events. EKG 03/2021 normal sinus rhythm with frequent and consecutive PVCs Assessment and Plan Assessment Anesthesia Assessment: Chart Reviewed Final Anesthetic Review Family History of Problems with Anesthesia: No History of Problems with Anesthesia: No
--- NOTE | 2021-06-12 10:50 | MHC.SHP ---
Pre-Procedural Eval Section A Date of Service: 06/12/21 The patient is an INPATIENT: No Changes since office visit: Yes Patient answered all questions; No Cold of Flu in the past 2 weeks, No New Medical Problems and No Changes in Medication The History & Physical has been completed within 30 days and I have reviewed it.: Yes Section B Chief Complaint: Mitral Valve Insufficiency Allergies: Allergies Allergy/AdvReac Type Severity Reaction Status Date / Time Penicillins Allergy Unknown Verified 03/03/20 01:30 Plan I have reviewed the history and physical and performed a pertinent physical examination on my patient. No changes have occurred unless specified.
--- NOTE | 2021-06-12 11:10 | PC.NURSE ---
c/o chest cold since thursday, non productive cough and runny nose, has not been tested for covid. Dr Bland at bedside, covid test ordered
[2021-06-12 11:11] VITALS: BP 145/80; PULSE 82; RESP 17; TEMP 36.3; O2SAT 97; BMI 26.7
[2021-06-12 11:17] LABS: Anion Gap 12 (12-20); Carbon Dioxide 28 mmol/L (22-29); Chloride 100 mmol/L (96-108); Potassium 4.1 mmol/L (3.3-5.1); Sodium 136 mmol/L (135-145)
[2021-06-12 11:27] LABS: COVID-19 Test Negative (Negative)
--- NOTE | 2021-06-12 11:37 | PC.NURSE ---
wheezing noted left lower lobe, dr Patel aware. covid negative. Per Dr Patel patient to be rescheduled. pt aware to call office to reschedule
== END ==
PROVIDERS: Anesthesiology; Nurse Practitioner; PCP Internal Medicine; Visit Provider Internal Medicine Cardiovascular Disease
DX: I34.0 Nonrheumatic mitral (valve) insufficiency (principal); Z53.09 Procedure and treatment not carried out because of other contraindication; Z20.822 Contact with and (suspected) exposure to COVID-19
CPT/HCPCS: 36415; 80051; 87635

== ENCOUNTER → 2021-07-10 12:56 | Outpatient (BNVA) | payer MEDICARE, SELFPAY | PROVIDERS: PCP Internal Medicine; Referring Provider Internal Medicine; Visit Provider Internal Medicine Cardiovascular Disease | DX: I34.0 Nonrheumatic mitral (valve) insufficiency (principal) | CPT/HCPCS: 93005; 99212 ==

== ENCOUNTER 2021-07-24 11:37 | Day surgery (SDC) | payer MEDICARE, SELFPAY ==
[2021-07-18 08:34] VITALS: BMI 26.6
--- NOTE | 2021-07-23 08:21 | P.CONAN_ITS ---
Documented by User: Jo-Ann Barker NP 07/23/21 08:24 HPI - Anesthesia Eval Consult details Narrative: 70yo M for Transesophageal Echocardiogram Cx'd DOS 06/2021 for productive cough afib, no anticoag PMFSH Active Problems Active Problems: All Active Problems (Updated 07/18/21 @ 08:52 by Fe Alcantar RN) Pleural effusion, bilateral (Acute) Alcohol use disorder (Acute) Hypomagnesemia (Acute) SOB (shortness of breath) on exertion (Acute) Fall (Acute) Upper arm pain (Acute) Anemia (Acute) Contusion of spinal cord (Acute) GI bleeding (Acute) Syncope and collapse (Acute) Cervical spondylitic cord compression (Acute) Status post cardiac catheterization (Acute) Congestive heart failure (Acute) Mitral regurgitation (Acute) Paroxysmal atrial fibrillation (Acute) Cardiomyopathy (Acute) Hypertension (Acute) Past Medical History Medical History (Updated 07/18/21 @ 08:52 by Fe Alcantar RN) Atrial fibrillation Cardiomyopathy Congestive heart failure GI bleed Heart failure with reduced ejection fraction History of cardioversion Hypertension Mitral regurgitation New onset of congestive heart failure Paroxysmal atrial fibrillation Family History Family History Father Cancer Mother No problems noted. Family history of problems with anesthesia: No Surgical History Surgical History H/O colonoscopy History of esophagogastroduodenoscopy (EGD) History of Problems with Anesthesia: No Social History Social History Household Members: Family Housing: House Are you a primary childcare provider to a significant other at home: No Do you presently have visiting nurse or other home services: No Alcohol intake: current Alcohol intake frequency: 3 or more drinks per day Alcohol type: beer Patient Tobacco Use Status: Former Tobacco user Quit Date: 1982 Second Hand Smoke Exposure: No Use of substances other than those prescribed or required for medical reasons: No Are you DNR?: No Advance Directives: Yes Advance Directives on File: Yes Advance Directives Date on File: 04/11/20 service: Yes Current occupational status: retired Meds Allergies Allergy/AdvReac Type Severity Reaction Status Date / Time Penicillins Allergy Unknown Verified 03/03/20 01:30 Home Medications Medication Instructions Recorded Confirmed Last Taken Type sucralfate 1 gram tablet 1 g PO QID 08/22/20 07/18/21 08/29/20 History omeprazole 40 mg capsule,delayed 40 mg PO DAILY 09/12/20 07/18/21 07/24/21 History release furosemide 20 mg tablet (Lasix) 20 mg PO DAILY PRN 07/18/21 07/18/21 Unknown History Exam Exam Date and Time: July 23, 2021 0821 Height,Weight and Vital Signs: Height 5 ft 8 in Weight 79.379 kg Pertinent Lab Results Pertinent Lab Results: Laboratory Tests 05/10/21 05/10/21 06/12/21 09:20 09:20 10:57 WBC 7.5 Hgb 15.7 Hct 45.4 Plt Count 182 Sodium 136 Potassium 4.1 D Chloride 100 Carbon Dioxide 28 BUN 13 Creatinine 1.08 Narrative Narrative: ECHO 04/2021 Conclusions: - The left ventricular systolic function is normal.? The ? calculated ejection fraction is 57% by biplane method. ? - The left atrium is severely dilated. ? - There is moderate mitral valve regurgitation.? The mitral? ? ? regurgitation jet is directed anteriorly. Could be underestimated due to eccentricity. Possible flail posterior leaflet, but not ? well visualized. ?? 3 Day Holter 04/2021 Total monitoring time 3 days and 11 hours.? Underlying rhythm is sinus.? Average heart rate of 80/Min, ranged between 54-126/Min.? Very frequent supraventricular ectopy with the burden of almost 20%.? Several supraventricular episodes, about one thousand; longest 16 minutes; these could be atrial fibrillation vs atrial tachycardia in different areas. Fastest rate 165/Min.? Frequent ventricular ectopy with the burden of about 4%;10 short runs noted; longest 4 beats.? No patient events. EKG 03/2021 normal sinus rhythm with frequent and consecutive PVCs Assessment and Plan Assessment Anesthesia Assessment: Chart Reviewed Final Anesthetic Review Family History of Problems with Anesthesia: No History of Problems with Anesthesia: No Documented by User: Silvano Sneed MD 07/24/21 13:44 [facility] Past Medical History Medical History (Updated 07/18/21 @ 08:52 by Fe Alcantar, RN) Atrial fibrillation Cardiomyopathy Congestive heart failure GI bleed Heart failure with reduced ejection fraction History of cardioversion Hypertension Mitral regurgitation New onset of congestive heart failure Paroxysmal atrial fibrillation Family History Family History Father Cancer Mother No problems noted. Family history of problems with anesthesia: No Surgical History Surgical History H/O colonoscopy History of esophagogastroduodenoscopy (EGD) History of Problems with Anesthesia: No Social History Social History Household Members: Family Housing: House Are you a primary childcare provider to a significant other at home: No Do you presently have visiting nurse or other home services: No Alcohol intake: current Alcohol intake frequency: 3 or more drinks per day Alcohol type: beer Patient Tobacco Use Status: Former Tobacco user Quit Date: 1982 Second Hand Smoke Exposure: No Use of substances other than those prescribed or required for medical reasons: No Are you DNR?: No Advance Directives: Yes Advance Directives on File: Yes Advance Directives Date on File: 04/11/20 service: Yes Current occupational status: retired Meds Allergies Allergy/AdvReac Type Severity Reaction Status Date / Time Penicillins Allergy Unknown Verified 03/03/20 01:30 Home Medications Medication Instructions Recorded Confirmed Last Taken Type sucralfate 1 gram tablet 1 g PO QID 08/22/20 07/18/21 08/29/20 History omeprazole 40 mg capsule,delayed 40 mg PO DAILY 09/12/20 07/18/21 07/24/21 History release furosemide 20 mg tablet (Lasix) 20 mg PO DAILY PRN 07/18/21 07/18/21 Unknown History Exam Airway Mallampati Class: I TM Dist: >3cm Neck ROM: Full Loose/Missing/Broken Teeth: Yes, Upper and Lower Heart: afib Lungs: ok Assessment and Plan Assessment Anesthesia Assessment: Anesthesia Plan Discussed and Chart Reviewed Final Anesthetic Review Family History of Problems with Anesthesia: No History of Problems with Anesthesia: No NPO: Yes ASA Class: IV Final Preanesthetic Review: No Changes in Pt Med Stat, Meds/Allgs Chart Reviewed, Consent Obtained/Reviewed and Anes Risks/Benef Reviewed Patient Risk: High Procedure Risk: Intermediate Anesthetic Plan Anesthetic Plan: MAC: and Agree w/ Assess. and Plan Disposition: Standard PACU
[2021-07-24] VITALS (7 sets, daily range): BP systolic 103–158; BP diastolic 65–110; PULSE 57–73; RESP 16–25; TEMP 35.9–36.6; O2SAT 96–99
[2021-07-24] MEDS: Lactated Ringers 1,000 ML 50 ML IVCONT (12:19)
--- NOTE | 2021-07-24 12:54 | CA_ITS ---
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 1. 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 Low normal LV systolic function 3. Mildly dilated left atrium 4. No intracardiac shunting 5. No intracardiac thrombi or masses or vegetations 6. No gross pericardial effusion Findings Procedure Information Consent was obtained prior to the procedure. Pre MARK oral cavity was checked and revealed no overcrowding. The adult 3D probe was passed with no difficulty. Left Ventricle Normal left ventricular cavity size. There is normal left ventricular wall thickness. The left ventricular systolic function is low normal. The visually estimated ejection fraction is between 50-55%. Spectral Doppler is indicative of an impaired relaxation filling pattern. Right Ventricle Normal right ventricular cavity size and systolic function. Atria The left atrium is mildly dilated. There is no evidence of interatrial shunt. There is no evidence of a patent foramen ovale. no left atrial mass or thrombi seen. The left upper, right upper and right lower pulmonary vein drain normally into the left atrium. The left atrial appendage was identified in multiple views and was free of any thrombi or smoke formation. The left atrial ejection velocity was preserved. The right atrium is likely dilated. Right atrium was devoid of any thrombi or masses. IVC and SVC drain normally into the right atrium. Mitral Valve The mitral valve appears myxomatous. There is moderate anterior and posterior mitral leaflet thickening. There is bowing of the anterior mitral leaflet without obvious prolapse and a flail posterior mitral leaflet involving the middle scallop/P2. There is severe mitral valve regurgitation. There is no mitral valve stenosis. The regurgitation is extremely eccentric hugging the atrial surface of anterior mitral leaflet Pulmonic Valve The pulmonic valve is likely normal. There is trace pulmonic valve regurgitation. Tricuspid Valve Likely normal tricuspid valve structure and function. There is trace tricuspid valve regurgitation. Great Vessels All visible segments of the aorta are normal in size. The pulmonary artery was not well visualized. Venous The inferior vena cava is normal in size and collapses greater than 50% with inspiration. Pericardium/Pleural There is no evidence of pericardial effusion. Prior Study Comparison no prior MARK Measurements Mitral Valve MR Vol - PW Dopp: 64.00 MR VTI: 1.45 MR ERO: 0.45 MR Alias Willie: 0.33 MR RAD: 1.00 Updated by Francisco Corral on 12:17 PM with Status of Final Francisco Corral MD electronically signed on 08/01/2021 12:17:18 PM with status of Final
--- NOTE | 2021-07-24 13:19 | MHC.SHP ---
Pre-Procedural Eval Section A Date of Service: 07/24/21 The patient is an INPATIENT: No Changes since office visit: Yes Patient answered all questions; No Cold of Flu in the past 2 weeks, No New Medical Problems and No Changes in Medication The History & Physical has been completed within 30 days and I have reviewed it.: Yes Section B Chief Complaint: Nonrheumatic mitral (valve) insufficiency Allergies: Allergies Allergy/AdvReac Type Severity Reaction Status Date / Time Penicillins Allergy Unknown Verified 03/03/20 01:30 Plan I have reviewed the history and physical and performed a pertinent physical examination on my patient. No changes have occurred unless specified.
== END 2021-07-24 17:30 | disposition home or self-care (01) ==
PROVIDERS: PCP Internal Medicine; Visit Provider Internal Medicine Cardiovascular Disease
PROC: (CPT 93312; principal; 2021-07-24 13:30)
DX: I34.0 Nonrheumatic mitral (valve) insufficiency (principal); I48.91 Unspecified atrial fibrillation; I11.0 Hypertensive heart disease with heart failure; I50.20 Unspecified systolic (congestive) heart failure; I48.0 Paroxysmal atrial fibrillation; I42.9 Cardiomyopathy, unspecified; Z79.899 Other long term (current) drug therapy; Z88.0 Allergy status to penicillin; Z87.891 Personal history of nicotine dependence
CPT/HCPCS: 93312; J3010

== ENCOUNTER → 2021-07-25 09:21 | Outpatient (BNVA) | payer MEDICARE, SELFPAY | PROVIDERS: PCP Internal Medicine; Referring Provider Internal Medicine; Visit Provider Internal Medicine Cardiovascular Disease | DX: I34.0 Nonrheumatic mitral (valve) insufficiency (principal); I48.0 Paroxysmal atrial fibrillation; I50.9 Heart failure, unspecified | CPT/HCPCS: 99212 ==

== ENCOUNTER 2021-07-29 10:02 | Outpatient (REF) | payer MEDICARE, SELFPAY ==
[2021-07-29 11:14] LABS: MANUAL DIFF FLAG NO
[2021-07-29 11:41] LABS: Basophils Absolute Auto 0.1 X10*3/uL (0.0-0.2); Basophils Percent Auto 0.5 % (0-2); Eosinophils Absolute Auto 0.3 X10*3/uL (0.0-0.4); Eosinophils Percent Auto 3.1 % (0-4); Hematocrit 42.8 % (42.0-52.0); Hemoglobin 15.1 g/dl (14.0-18.0); Imm Gran Abs Auto 0.05 X10*3/uL (0.00-0.03); Imm Gran Pct Auto 0.5 % (0.0-0.4); Lymphocytes Absolute Auto 1.3 X10*3/uL (1.2-4.9); Lymphocytes Percent Auto 14.5 % (20-40); Mean Corpuscular HGB Conc 35.3 g/dl (31.0-36.0); Mean Corpuscular Hemoglobin 32.7 pg (27.0-33.0); Mean Corpuscular Volume 92.6 fL (80.0-98.0); Mean Platelet Volume 9.7 fL (9.4-12.4); Monocytes Absolute Auto 0.9 X10*3/uL (0.1-1.2); Monocytes Percent Auto 9.5 % (2-11); Neutrophils Absolute Auto 6.5 x10*3/uL (2.0-8.3); Neutrophils Percent Auto 71.9 % (45-73); Platelet Count 147 X10*3/uL (160-400); Red Blood Count 4.62 X10*6/uL (4.60-5.80); Red Cell Distribution Width 12.9 % (11.0-16.0); White Blood Count 9.1 X10*3/uL (4.8-10.8)
[2021-07-29 11:46] LABS: Iron 156 mcg/dL (45-160); Percent Iron Saturation 59 % (15-50); Total Iron Binding Capacity 265 mcg/dL (228-428); Unsaturated Iron Binding 109 ug/dL
[2021-07-29 11:52] LABS: Ferritin 309 ng/mL (20-250)
== END 2021-07-29 10:03 | disposition home or self-care (01) ==
LOC: HO.HMGCLDS 10:02
PROVIDERS: PCP Internal Medicine; Visit Provider Internal Medicine
DX: D50.0 Iron deficiency anemia secondary to blood loss (chronic) (principal); K31.819 Angiodysplasia of stomach and duodenum without bleeding
CPT/HCPCS: 36415; 82728; 83540; 85025

== ENCOUNTER → 2021-10-22 08:46 | Outpatient (BNVA) | payer MEDICARE, SELFPAY | PROVIDERS: PCP Internal Medicine; Referring Provider Internal Medicine; Visit Provider Internal Medicine Cardiovascular Disease | DX: I34.0 Nonrheumatic mitral (valve) insufficiency (principal); I48.0 Paroxysmal atrial fibrillation; I50.9 Heart failure, unspecified; Z79.899 Other long term (current) drug therapy | CPT/HCPCS: 99212 ==

== ENCOUNTER 2021-11-25 09:29 | Outpatient (REF) | payer MEDICARE, SELFPAY ==
[2021-11-25 11:36] LABS: Prothrombin Time 11.9 SEC (10.0-13.1)
[2021-11-25 11:40] LABS: Hematocrit 44.5 % (42.0-52.0); Hemoglobin 15.3 g/dl (14.0-18.0); Mean Corpuscular HGB Conc 34.4 g/dl (31.0-36.0); Mean Corpuscular Hemoglobin 32.5 pg (27.0-33.0); Mean Corpuscular Volume 94.5 fL (80.0-98.0); Mean Platelet Volume 9.6 fL (9.4-12.4); Platelet Count 136 X10*3/uL (160-400); Red Blood Count 4.71 X10*6/uL (4.60-5.80); Red Cell Distribution Width 12.7 % (11.0-16.0)
[2021-11-25 14:07] LABS: Anion Gap 16 (12-20); Blood Urea Nitrogen 13 mg/dL (9-16); Calcium 9.4 mg/dL (8.4-10.2); Carbon Dioxide 27 mmol/L (22-29); Chloride 102 mmol/L (96-108); Estimated Glomerular Filt Rate > 60; Glucose Random 93 mg/dL (60-115); Potassium 4.6 mmol/L (3.3-5.1); Sodium 140 mmol/L (135-145)
== END 2021-11-25 09:30 | disposition home or self-care (01) ==
LOC: HO.HMGCLDS 09:29
PROVIDERS: Visit Provider Internal Medicine Cardiovascular Disease
DX: I42.9 Cardiomyopathy, unspecified (principal); I34.0 Nonrheumatic mitral (valve) insufficiency; I48.0 Paroxysmal atrial fibrillation
CPT/HCPCS: 36415; 80048; 85027; 85610

== ENCOUNTER → 2021-12-17 08:23 | Outpatient (BNVA) | payer MEDICARE, SELFPAY | PROVIDERS: PCP Internal Medicine; Referring Provider Internal Medicine; Visit Provider Internal Medicine Cardiovascular Disease | DX: I34.0 Nonrheumatic mitral (valve) insufficiency (principal); I48.0 Paroxysmal atrial fibrillation; I50.9 Heart failure, unspecified | CPT/HCPCS: 99212 ==

== ENCOUNTER → 2022-04-07 09:01 | Outpatient (BNVA) | payer MEDICARE, SELFPAY | PROVIDERS: PCP Internal Medicine; Referring Provider Internal Medicine; Visit Provider Internal Medicine Cardiovascular Disease | DX: I34.0 Nonrheumatic mitral (valve) insufficiency (principal); I48.0 Paroxysmal atrial fibrillation; I50.9 Heart failure, unspecified | CPT/HCPCS: 99212 ==

== ENCOUNTER → 2022-04-10 07:25 | Outpatient (REF) | payer MEDICARE, SELFPAY ==
--- NOTE | 2022-04-10 07:32 | CA_ITS ---
Transthoracic Echocardiogram Patient (Last, First, Middle): Ambrocio Askew, Gender: Male Date of : 1950 Age: 71 Procedure Date: 04/10/2022 Procedure Type: Transthoracic Echocardiogram Location: OP Height: 172.72 cm Weight: 79.38 kg BSA: 1.93 m2 Heart Rate: bpm BP: 155 / 90 mmHg Crushing Machine Operator: TO Referring MD: Francisco Corral MD Symptoms: I34.0 - Nonrheumatic mitral (valve) insufficiency Study Quality: Fair Conclusions: - 1. Mildly dilated mildly reduced LV ejection fraction 45-50% 2. Severe left atrial enlargement 3. At least moderate but eccentric mitral regurgitation which may be underestimated on this study secondary to mitral valve prolapse 4. No gross pericardial effusion Findings Procedure Information The patient declines contrast. Left Ventricle Mildly increased left ventricular cavity size. There is normal left ventricular wall thickness. The left ventricular systolic function is mildly decreased. The visually estimated ejection fraction is between 45-50%. Diastolic function is indeterminate on the basis of available data. Right Ventricle Normal right ventricular cavity size and systolic function. Atria The left atrium is severely dilated. Interatrial shunt cannot be excluded. The right atrium was not well visualized. Aortic Valve The aortic valve structure and function is likely normal. There is no aortic valve stenosis. There is no aortic valve regurgitation. Mitral Valve The mitral valve appears myxomatous. There is moderate anterior and posterior mitral leaflet thickening. There is moderate posterior mitral leaflet prolapse. There is moderate mitral valve regurgitation. The mitral regurgitation jet is a wall impinging jet. There is no mitral valve stenosis. mitral regurgitation severity appears to be underestimated on this study compared to prior study, probably due to not obtaining all views as well as eccentric nature of the mitral regurgitation. quantitative analysis was not performed Pulmonic Valve The pulmonic valve was not well visualized. Tricuspid Valve Likely normal tricuspid valve structure and function. Tricuspid regurgitation envelope is inadequate for calculation of right ventricular systolic pressure. Normal right atrial pressure. Great Vessels All visible segments of the aorta are normal in size. The pulmonary artery was not well visualized. Venous The inferior vena cava is normal in size and collapses greater than 50% with inspiration. Pericardium/Pleural There is no evidence of pericardial effusion. Prior Study Comparison Changes noted compared to prior study dated: 07/24/2021. LV systolic function is mildly depressed Measurements 2D Linear Measurements IVSd: 1.04 0.6-0.9/0.6-1.0 cm LVIDd: 5.57 3.9-5.3/4.2-5.9 cm LVIDd Index: 2.89 2.4-3.2/2.2-3.1 cm/m2 LVIDs: 4.61 2.0-3.6 cm LVPWd: 1.13 0.7-1.1 cm LA Diam: 4.90 2.7-3.8/3.0-4.0 cm LAIDs Index: 2.54 1.5-2.3 cm/m2 LV Mass: 302.51 67-162/88-224 g LV Mass Index: 156.74 43-95/49-115 g/m2 LVOT Diam: 2.10 3.0+(-)1.3 cm 2D Systolic Function EF 4C: 45.90 >55% EF 2C: 46.10 >55% EF BiP: 46.80 >55% Mitral Valve MV Pk E: 0.82 MV PK A: 0.35 MV Decel Time: 201.00 E/A: 2.40 E'Lateral: 8.27 E'Medial: 7.51 E/E' Med: 10.90 E/E' Lat: 9.90 PHT: 59.00 MVA PHT: 3.73 Decel [place]: 4.06 Aortic Valve AoV Pk Willie: 1.08 AoV Mn Willie: 0.73 AoV VTI: 0.22 AoV Pk Grad: 5.00 Aov Mn Grad: 2.00 CED Cont.VTI: 2.42 LVOT LVOT Pk Willie: 0.81 LVOT Mn Willie: 0.52 LVOT VTI: 0.16 LVOT Pk Grad: 3.00 LVOT Mn Grad: 1.00 LVOT Diam: 2.10 LVOT Area: 3.46 Diastolic Function MV Pk E: 0.82 MV Pk A: 0.35 E/A: 2.40 E'Medial: 7.51 E/E' Med: 10.90 E' Laterial: 8.27 E/E' Lat: 9.90 Right Ventricle TAPSE (mm): 19.80 TVS' Willie: 11.30 Tricuspid Valve RA Press: 3.00 Great Vessels Aorta Sinus of Valsalva: 3.31 2.0-3.[address] [place]: 2.38 1.7-3.4 cm Ao Asc: 3.40 2.1-3.4 cm Updated in Other Vendor System with Status of Final Francisco Corral MD electronically signed on 04/10/2022 12:15:40 PM with status of Final
== END ==
LOC: HO.CARD 07:25
PROVIDERS: PCP Internal Medicine; Visit Provider Internal Medicine Cardiovascular Disease
DX: I34.0 Nonrheumatic mitral (valve) insufficiency (principal)
CPT/HCPCS: 93306

== ENCOUNTER 2022-05-26 09:38 | Outpatient (REF) | payer MEDICARE, SELFPAY ==
[2022-05-26 11:36] LABS: MANUAL DIFF FLAG NO
[2022-05-26 11:44] LABS: Basophils Percent Auto 0.5 % (0-2); Eosinophils Absolute Auto 0.1 X10*3/uL (0.0-0.4); Eosinophils Percent Auto 1.2 % (0-4); Hematocrit 42.8 % (42.0-52.0); Imm Gran Abs Auto 0.02 X10*3/uL (0.00-0.03); Imm Gran Pct Auto 0.3 % (0.0-0.4); Lymphocytes Absolute Auto 1.5 X10*3/uL (1.2-4.9); Mean Corpuscular Volume 94.1 fL (80.0-98.0); Mean Platelet Volume 9.8 fL (9.4-12.4); Monocytes Absolute Auto 0.6 X10*3/uL (0.1-1.2); Monocytes Percent Auto 9.3 % (2-11); Neutrophils Absolute Auto 4.4 x10*3/uL (2.0-8.3); Neutrophils Percent Auto 66.7 % (45-73); Platelet Count 133 X10*3/uL (160-400); Red Blood Count 4.55 X10*6/uL (4.60-5.80); Red Cell Distribution Width 12.1 % (11.0-16.0); White Blood Count 6.7 X10*3/uL (4.8-10.8)
[2022-05-26 12:35] LABS: Alanine Aminotransferase 37 U/L (0-40); Albumin Level 4.1 g/dL (3.5-5.0); Alkaline Phosphatase 50 U/L (39-117); Anion Gap 14 (12-20); Aspartate Amino Transferase 38 U/L (5-37); Bilirubin Total 2.5 mg/dL (0.0-1.0); Blood Urea Nitrogen 18 mg/dL (9-16); Carbon Dioxide 27 mmol/L (22-29); Chloride 101 mmol/L (96-108); Cholesterol 156 mg/dL; Estimated Glomerular Filt Rate 56; Glucose Random 109 mg/dL (60-115); HDL Cholesterol 56 mg/dL; LDL Cholesterol Calculated 88 mg/dl; Potassium 3.9 mmol/L (3.3-5.1); Sodium 138 mmol/L (135-145); Total Protein 6.9 g/dL (6.5-8.0); Triglycerides 60 mg/dL
[2022-05-26 12:57] LABS: Prostate Specific Antigen 0.82 ng/mL (<0.05-4.0)
== END 2022-05-26 09:39 | disposition home or self-care (01) ==
LOC: HO.HMGCLDS 09:38
PROVIDERS: Absent Provider Internal Medicine Cardiovascular Disease; PCP Internal Medicine; Referring Provider Thoracic Surgery (Cardiothoracic Vascular Surgery); Visit Provider Internal Medicine
DX: Z12.5 Encounter for screening for malignant neoplasm of prostate (principal); F10.11 Alcohol abuse, in remission; I11.0 Hypertensive heart disease with heart failure; I50.32 Chronic diastolic (congestive) heart failure; I34.0 Nonrheumatic mitral (valve) insufficiency
CPT/HCPCS: 36415; 80053; 80061; 84153; 85025

== ENCOUNTER 2022-06-17 12:52 | Outpatient (REF) | payer MEDICARE, SELFPAY ==
--- NOTE | ~2022-06-17 | US_ITS ---
EXAMINATION: US EXTRACRANIAL CAROTID DUPLEX, BILATERAL CLINICAL INFORMATION: Carotid bruit COMPARISON: None available. TECHNIQUE: Real-time ultrasound and Doppler techniques (integrating B-mode 2-D vascular images, Doppler spectral analysis and color-flow Doppler imaging) were utilized to interrogate the extracranial carotid arteries, the vertebral arteries and proximal subclavian arteries bilaterally. The degree of stenosis is determined by criteria similar to NASCET. FINDINGS: Right Side: 1. There is mild atherosclerotic plaque seen in the bifurcation/proximal ICA region. 2. The common carotid artery PSV proximally is 80.1 cm/s and distally 55.7 cm/s. 3. The proximal internal carotid artery velocities are 40.7 cm/s systolic and 8 cm/s diastolic. 4. The proximal external carotid artery PSV is 61.1 cm/s. 5. The vertebral artery shows antegrade flow. 6. The subclavian artery waveforms are normal. Left Side: 1. There is moderate atherosclerotic plaque seen in the bifurcation/proximal ICA region. 2. The common carotid artery PSV proximally is 56.8 cm/s and distally 56.8 cm/s. 3. The proximal internal carotid artery velocities are 119 cm/s systolic and 38 cm/s diastolic. 4. The proximal external carotid artery PSV is 84.5 cm/s. 5. The vertebral artery shows antegrade flow. 6. The subclavian artery waveforms are normal. Incidentally noted is a nonpathologic appearing 1.7 x 0.7 x 0.9 cm lymph node adjacent to the left carotid bulb with a normal fatty hilum. In addition, there is a large well-circumscribed hypoechoic nodule in the left thyroid gland measuring 1.5 x 1.3 x 2.1 cm. US/US carotid duplex BI IMPRESSION: 1. RIGHT: Minimal, non-hemodynamically significant stenosis of the proximal right internal carotid artery corresponding to a 0-49% stenosis by velocity criteria. 2. LEFT: Minimal, non-hemodynamically significant stenosis of the proximal left internal carotid artery corresponding to a 0-49% stenosis by velocity criteria. 3. Left thyroid nodule measuring 2.1 x 1.3 x 1.5 cm. Recommend further evaluation with dedicated thyroid ultrasound.
== END 2022-06-17 12:53 | disposition home or self-care (01) ==
LOC: HO.US 12:52
PROVIDERS: PCP Internal Medicine; Visit Provider Thoracic Surgery (Cardiothoracic Vascular Surgery)
DX: R09.89 Other specified symptoms and signs involving the circulatory and respiratory systems (principal)
CPT/HCPCS: 93880

== ENCOUNTER → 2022-07-14 08:57 | Outpatient (BNVA) | payer MEDICARE, SELFPAY | PROVIDERS: PCP Internal Medicine; Referring Provider Internal Medicine; Visit Provider Internal Medicine Cardiovascular Disease | DX: I34.0 Nonrheumatic mitral (valve) insufficiency (principal); I50.9 Heart failure, unspecified; I48.0 Paroxysmal atrial fibrillation | CPT/HCPCS: 99212 ==

== ENCOUNTER 2022-09-23 09:45 | Outpatient (REF) | payer MEDICARE, SELFPAY ==
[2022-09-23 11:25] LABS: MANUAL DIFF FLAG NO
[2022-09-23 11:50] LABS: Basophils Absolute Auto 0.1 X10*3/uL (0.0-0.2); Basophils Percent Auto 0.7 % (0-2); Eosinophils Absolute Auto 0.3 X10*3/uL (0.0-0.4); Eosinophils Percent Auto 3.9 % (0-4); Hematocrit 32.5 % (42.0-52.0); Imm Gran Abs Auto 0.06 X10*3/uL (0.00-0.03); Imm Gran Pct Auto 0.9 % (0.0-0.4); Lymphocytes Absolute Auto 1.3 X10*3/uL (1.2-4.9); Mean Corpuscular HGB Conc 33.8 g/dl (31.0-36.0); Mean Corpuscular Hemoglobin 31.1 pg (27.0-33.0); Mean Corpuscular Volume 91.8 fL (80.0-98.0); Mean Platelet Volume 8.5 fL (9.4-12.4); Monocytes Absolute Auto 0.7 X10*3/uL (0.1-1.2); Monocytes Percent Auto 10.7 % (2-11); Neutrophils Absolute Auto 4.4 x10*3/uL (2.0-8.3); Neutrophils Percent Auto 64.8 % (45-73); Platelet Count 320 X10*3/uL (160-400); Red Blood Count 3.54 X10*6/uL (4.60-5.80); Red Cell Distribution Width 12.7 % (11.0-16.0); White Blood Count 6.7 X10*3/uL (4.8-10.8)
[2022-09-23 12:54] LABS: Alanine Aminotransferase 21 U/L (0-40); Albumin Level 3.5 g/dL (3.5-5.0); Alkaline Phosphatase 85 U/L (39-117); Anion Gap 11 (12-20); Aspartate Amino Transferase 29 U/L (5-37); Blood Urea Nitrogen 11 mg/dL (9-16); Calcium 9.3 mg/dL (8.4-10.2); Carbon Dioxide 25 mmol/L (22-29); Chloride 98 mmol/L (96-108); Estimated Glomerular Filt Rate 60; Glucose Random 102 mg/dL (60-115); Potassium 4.2 mmol/L (3.3-5.1); Sodium 130 mmol/L (135-145); Total Protein 6.8 g/dL (6.5-8.0)
[2022-09-23 13:06] LABS: Prostate Specific Antigen 1.33 ng/mL (<0.05-4.0)
== END 2022-09-23 09:46 | disposition home or self-care (01) ==
LOC: HO.HMGCLDS 09:45
PROVIDERS: PCP Internal Medicine; Visit Provider Internal Medicine
DX: Z00.00 Encounter for general adult medical examination without abnormal findings (principal); Z12.5 Encounter for screening for malignant neoplasm of prostate; I48.0 Paroxysmal atrial fibrillation; I34.0 Nonrheumatic mitral (valve) insufficiency; I10 Essential (primary) hypertension; F10.11 Alcohol abuse, in remission; D69.59 Other secondary thrombocytopenia
CPT/HCPCS: 36415; 80053; 84153; 85025

== ENCOUNTER 2022-10-14 09:18 | Outpatient (AMB) | payer MEDICARE, SELFPAY ==
[2022-10-14 09:25] VITALS: BP 100/62; PULSE 71; BMI 26.1
--- NOTE | 2022-10-14 09:25 | MHC.OFFVIS ---
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 B Required: No Allergies Penicillins Allergy (Verified 07/14/22 09:09) Unknown Medication List - Last Reconciled 10/14/22 by Francisco Corral MD amiodarone 200 mg PO BID amlodipine 10 mg PO DAILY apixaban (Eliquis) 5 mg PO BID aspirin (Adult Aspirin Regimen) 81 mg PO DAILY metoprolol tartrate 25 mg PO BID omeprazole 40 mg PO DAILY sucralfate 1 g PO QID valsartan 80 mg PO DAILY HPI HPI Comments History of Present Illness Details Ambrocio comes for follow-up after recent cardiac surgery with mitral valve repair for significant mitral regurgitation secondary mitral valve prolapse as well as left atrial appendage ligation but no Maze procedure. Patient postoperative develop atrial fibrillation remains in persistent atrial fibrillation despite amiodarone loading. He has been loaded with 200 mg b.i.d. for greater than month. He has been on oral anticoagulation therapy with Eliquis as well as aspirin. He has not noticed any significant bleeding. His hematocrit has been stable. He comes for follow-up and says that he has been very limited in activity level and has exertional shortness of breath and fatigue. Denies any clear orthopnea or worsening weight gain or leg edema. He says most of his symptoms are he denies any palpitations, lightheadedness, syncope. No chest pain. FORMERLY [facility] Medical History Atrial fibrillation Cardiomyopathy Congestive heart failure GI bleed Heart failure with reduced ejection fraction History of cardioversion Hypertension Mitral regurgitation New onset of congestive heart failure Paroxysmal atrial fibrillation Surgical History H/O colonoscopy History of esophagogastroduodenoscopy (EGD) Status post cardiac catheterization Status post mitral valve repair Family History Father Cancer Mother No problems noted. Social History Household Members: Family Housing: House Are you a primary family member caretaker to a significant other at home: No Do you presently have visiting nurse or other home services: No Alcohol intake: current Alcohol intake frequency: 3 or more drinks per day Alcohol type: beer Patient Tobacco Use Status: Former Tobacco user Quit Date: 1982 Second Hand Smoke Exposure: No Advance Directives Date on File: 04/11/20 service: Yes Current occupational status: retired Review of Systems Const Denies chills, Denies fatigue, Denies fever(s), Denies frequent falls, Denies weakness, Denies weight gain and Denies weight loss ENT Denies dizziness Card Denies chest pain, Denies leg edema, Denies lightheadedness, Denies palpitations, Denies dyspnea, Denies dyspnea on exertion, Denies orthopnea and Denies other (loss of consciousness) Resp Denies cough, Denies dyspnea and Denies dyspnea on exertion GI Denies hematochezia and Denies change in stool character Musc Denies abnormal gait, Denies muscle weakness, Denies numbness, Denies radiating pain into limb and Denies tingling Neuro Denies abnormal gait, Denies dizziness, Denies frequent falls, Denies numbness, Denies tingling and Denies weakness Endo Denies fatigue and Denies palpitations Physical Exam Vital Signs: Last Vital Signs Pulse 71 10/14/22 09:25 BP 100/62 10/14/22 09:25 BMI result Body Mass Index 26.1 Const General: cooperative, comfortable, no acute distress, alert, awake and tired appearing Nutritional Appearance: overweight Orientation/consciousness: patient oriented x3 Limitations: no limitations Neck Neck: Yes trachea midline, Yes supple and Yes no JVD Resp Effort & Inspection: normal respiratory effort Auscultation: clear to auscultation bilaterally Cardio Jugular venous distension: no JVD Palpation: normal PMI Rhythm: abnormal rhythm irregularly irregular Heart sounds: S1 normal heart sound present, S2 normal heart sound present, no click, no gallops, no murmurs and no rubs GI Auscultation: normal bowel sounds Skin General skin exam: no rashes or lesions noted and ecchymosis Neuro General: patient oriented x3 and no focal motor deficits Extrem General: No clubbing, No cyanosis and Yes edema Psych Appearance: grossly normal Office Procedures EKG Details: EKG shows atrial fibrillation with rightward axis with low-voltage QRS with poor R-wave progression with nonspecific ST changes [id number], Complete Assessment & Plan Assessment & Plan (1) Persistent atrial fibrillation: Code(s): I48.19 - Other persistent atrial fibrillation Plan: Persistent atrial fibrillation with symptoms in this elderly gentleman status post recent mitral valve repair surgery. This is most likely cause of her symptoms. Does not appear to be in overt heart failure at this point time. We discussed about rhythm control approach given that he has done very well with rhythm control approach in the past and has avoided heart failure syndrome related to it. He is currently loaded with amiodarone therapy. Will switch to amiodarone 200 mg daily and will require long-term continuation. He has been on full oral anticoagulation Eliquis. Will schedule for synchronized cardioversion on his request for next week. We discuss the risks, benefits, alternatives to the procedure. He understands and agrees. Further treatment based on the response. Continue current low-dose Lasix therapy. (2) Status post mitral valve repair: Comment: Status post complex mitral valve reconstruction with posterior leaflet resection, cord replacement as well as mitral annuloplasty ring with left atrial ligation. Code(s): Z98.890 - Other specified postprocedural states Plan: Status post complex mitral valve repair. Clinically mitral regurgitation appears to have improved. Will follow up with echocardiogram after synchronized cardioversion in the near future. Also once he is feeling better I strongly recommend him to pursue cardiac rehabilitation. SBE prophylaxis as per ACC/[facility] guidelines. Continue aspirin in concomitant use with Eliquis for 3 months post repair. Will follow up in the clinic in 4 weeks time, sooner p.r.n.. Thank you for allowing me to partake in his care Orders: Orders B Type Natriuretic Peptide Today I48.19 - Other persistent atrial fibrillation Basic Metabolic Panel Today I48.19 - Other persistent atrial fibrillation Complete Blood Count no Diff Today I48.19 - Other persistent atrial fibrillation CA echo transthoracic complete 2 Weeks Z98.890 - Other specified postprocedural states Cardiac Rehab 2 Weeks Z95.2 - Presence of prosthetic heart valve, Z98.890 - Other specified postprocedural states Medications: New amiodarone 200 mg PO DAILY furosemide (Lasix) 20 mg PO DAILY 30 tabs 1RF Coding Level of Care Code Est Pt Level 4 (16026) Diagnoses Persistent atrial fibrillation I48.19 Status post mitral valve repair Z98.890 CPT Codes EKG - CPT: [id number], Complete ([id number])
== END 2022-10-14 10:03 | disposition home or self-care (01) ==
PROVIDERS: PCP Internal Medicine; Referring Provider Internal Medicine; Visit Provider Internal Medicine Cardiovascular Disease
DX: I48.19 Other persistent atrial fibrillation (principal); Z98.890 Other specified postprocedural states
CPT/HCPCS: 93010; 99214

== ENCOUNTER 2022-10-14 09:18 | Outpatient (REF) | payer MEDICARE, SELFPAY ==
[2022-10-14 11:01] LABS: Hematocrit 36.7 % (42.0-52.0); Hemoglobin 12.5 g/dl (14.0-18.0); Mean Corpuscular HGB Conc 34.1 g/dl (31.0-36.0); Mean Corpuscular Hemoglobin 31.7 pg (27.0-33.0); Mean Corpuscular Volume 93.1 fL (80.0-98.0); Mean Platelet Volume 8.5 fL (9.4-12.4); Platelet Count 217 X10*3/uL (160-400); Red Blood Count 3.94 X10*6/uL (4.60-5.80); Red Cell Distribution Width 13.2 % (11.0-16.0); White Blood Count 6.8 X10*3/uL (4.8-10.8)
[2022-10-14 11:12] LABS: B Type Natriuretic Peptide 302 pg/mL (<100)
[2022-10-14 11:38] LABS: Anion Gap 12 (12-20); Blood Urea Nitrogen 12 mg/dL (9-16); Calcium 9.3 mg/dL (8.4-10.2); Carbon Dioxide 26 mmol/L (22-29); Chloride 101 mmol/L (96-108); Estimated Glomerular Filt Rate > 60; Glucose Random 106 mg/dL (60-115); Potassium 4.5 mmol/L (3.3-5.1); Sodium 134 mmol/L (135-145)
== END 2022-10-14 09:19 | disposition home or self-care (01) ==
LOC: HO.LAB 09:18
PROVIDERS: PCP Internal Medicine; Referring Provider Internal Medicine; Visit Provider Internal Medicine Cardiovascular Disease
DX: I48.19 Other persistent atrial fibrillation (principal); Z95.2 Presence of prosthetic heart valve; Z98.890 Other specified postprocedural states; Z79.899 Other long term (current) drug therapy
CPT/HCPCS: 36415; 80048; 83880; 85027; 93005; 99212

== ENCOUNTER 2022-10-22 08:26 | Day surgery (SDC) | payer MEDICARE, SELFPAY ==
--- NOTE | 2022-10-21 10:33 | HO.ANESPROP2 ---
HPI - Anesthesia Eval Consult details Narrative: 72yo M for Cardioversion Eliquis for afib [facility] Active Problems Active Problems: All Active Problems (Updated 10/14/22 @ 09:55 by Francisco Corral MD) Status post mitral valve repair (Acute) Persistent atrial fibrillation (Acute) Pleural effusion, bilateral (Acute) Alcohol use disorder (Acute) Hypomagnesemia (Acute) SOB (shortness of breath) on exertion (Acute) Fall (Acute) Upper arm pain (Acute) Anemia (Acute) Contusion of spinal cord (Acute) GI bleeding (Acute) Syncope and collapse (Acute) Cervical spondylitic cord compression (Acute) Congestive heart failure (Acute) Mitral regurgitation (Acute) Paroxysmal atrial fibrillation (Acute) Cardiomyopathy (Acute) Hypertension (Acute) Past Medical History Medical History Atrial fibrillation Cardiomyopathy Congestive heart failure GI bleed Heart failure with reduced ejection fraction History of cardioversion Hypertension Mitral regurgitation New onset of congestive heart failure Paroxysmal atrial fibrillation Family History Family History Father Cancer Mother No problems noted. Family history of problems with anesthesia: No Surgical History Surgical History H/O colonoscopy History of esophagogastroduodenoscopy (EGD) Status post cardiac catheterization Status post mitral valve repair History of Problems with Anesthesia: No Social History Social History Household Members: Family Housing: House Are you a primary infant childcare provider to a significant other at home: No Do you presently have visiting nurse or other home services: No Alcohol intake: current Alcohol intake frequency: 3 or more drinks per day Alcohol type: beer Patient Tobacco Use Status: Former Tobacco user Quit Date: 1982 Second Hand Smoke Exposure: No Advance Directives Date on File: 04/11/20 service: Yes Current occupational status: retired Meds Allergies Allergy/AdvReac Type Severity Reaction Status Date / Time Penicillins Allergy Unknown Verified 07/14/22 09:09 Home Medications Medication Instructions Recorded Confirmed Last Taken Type sucralfate 1 gram tablet 1 g PO QID 08/22/20 10/22/22 08/29/20 History omeprazole 40 mg capsule,delayed 40 mg PO DAILY 09/12/20 10/22/22 07/24/21 History release amiodarone 200 mg tablet 200 mg PO DAILY 10/14/22 10/22/22 10/22/22 History apixaban 5 mg tablet (Eliquis) 5 mg PO BID 10/14/22 10/22/22 10/22/22 History aspirin 81 mg tablet,delayed 81 mg PO DAILY 10/14/22 10/22/22 10/22/22 History release (Adult Aspirin Regimen) Exam Exam Date and Time: October 21, 2022 1033 Pertinent Lab Results Pertinent Lab Results: Laboratory Tests 10/14/22 10/14/22 10:39 10:39 WBC 6.8 Hgb 12.5 L Hct 36.7 L Plt Count 217 D Sodium 134 L Potassium 4.5 Chloride 101 Carbon Dioxide 26 BUN 12 Creatinine 1.05 Narrative Narrative: EKG 10/2022 atrial fibrillation with rightward axis with low-voltage QRS with poor R-wave progression with nonspecific ST changes ECHO 04/2022 Conclusions: - 1. Mildly dilated mildly reduced LV ejection fraction 45-50% ? 2. Severe left atrial enlargement? 3. At least moderate but eccentric mitral regurgitation which may be underestimated on this study secondary to mitral valve? prolapse ? 4. No gross pericardial effusion ? ? ? Assessment and Plan Assessment Anesthesia Assessment: Chart Reviewed Final Anesthetic Review Family History of Problems with Anesthesia: No History of Problems with Anesthesia: No
[2022-10-22] VITALS (7 sets, daily range): BP systolic 93–142; BP diastolic 51–73; PULSE 58–71; RESP 16–18; TEMP 36.1–36.2; O2SAT 97–100; BMI 26.6
--- NOTE | 2022-10-22 08:46 | MHC.SHP ---
Pre-Procedural Eval Section A Date of Service: 10/22/22 The patient is an INPATIENT: No Changes since office visit: No Cold of Flu in the past 2 weeks, No New Medical Problems and No Changes in Medication The History & Physical has been completed within 30 days and I have reviewed it.: Yes Section B Chief Complaint: Other persistent atrial fibrillation Allergies: Allergies Allergy/AdvReac Type Severity Reaction Status Date / Time Penicillins Allergy Unknown Verified 07/14/22 09:09 Plan I have reviewed the history and physical and performed a pertinent physical examination on my patient. No changes have occurred unless specified. Time Spent With Patient Time: Total time managing care of this patient today ____ minutes.
[2022-10-22] MEDS: Lactated Ringers 1,000 ML 50 ML IVCONT (09:44)
--- NOTE | 2022-10-22 10:31 | ECG_ITS ---
Test Reason : postop Blood Pressure : / mmHG Vent. Rate : 059 BPM Atrial Rate : 059 BPM P-R Int : 234 ms QRS Dur : 112 ms QT Int : 490 ms P-R-T Axes : 060 -07 021 degrees QTc Int : 485 ms Sinus bradycardia with 1st degree A-V block Low voltage QRS Inferior infarct , age undetermined Abnormal ECG When compared with ECG of 21-JUN-2020 06:00, Premature atrial complexes are no longer Present OR interval has increased T wave amplitude has decreased in Anterior leads Referred By: Francisco Corral Electronically Signed By:IRENE OCHOA
--- NOTE | 2022-10-22 10:31 | HO.CARDIVERS ---
Cardioversion Procedure Note Cardioversion Date of Procedure: Today Ordering Provider: Myself Performing Provider: Myself Indication for Procedure: Persistent atrial fibrillation Pre-Op Diagnosis: Same Post-Op Diagnosis: Normal sinus rhythm Performed with Transesophageal Echo: No History: See my office note Consent: Verbal and Written consent was obtained from the patient before starting the procedure and confirming use of oral anticoagulation amiodarone. The patient was made aware of the risk of synchronized cardioversion including benefits, alternatives Procedure: After consent obtained, cardioversion pads were attached in anteroposterior configuration and the patient was sedated by the anesthesia team. Once adequate sedation achieved, patient was delivered 200 joules of biphasic synchronized energy in anteroposterior configuration. Patient converted to sinus rhythm Complications: None Impression: Successful conversion to sinus rhythm Recommendations: 1. Twelve lead EKG 2. Continue amiodarone and oral anticoagulation therapy 3. Follow up in the clinic in 2 weeks time
--- NOTE | 2022-10-22 10:35 | HO.ANESPROP2 ---
[facility] Active Problems Active Problems: All Active Problems (Updated 10/14/22 @ 09:55 by Francisco Corral MD) Status post mitral valve repair (Acute) Persistent atrial fibrillation (Acute) Pleural effusion, bilateral (Acute) Alcohol use disorder (Acute) Hypomagnesemia (Acute) SOB (shortness of breath) on exertion (Acute) Fall (Acute) Upper arm pain (Acute) Anemia (Acute) Contusion of spinal cord (Acute) GI bleeding (Acute) Syncope and collapse (Acute) Cervical spondylitic cord compression (Acute) Congestive heart failure (Acute) Mitral regurgitation (Acute) Paroxysmal atrial fibrillation (Acute) Cardiomyopathy (Acute) Hypertension (Acute) Past Medical History Medical History Atrial fibrillation Cardiomyopathy Congestive heart failure GI bleed Heart failure with reduced ejection fraction History of cardioversion Hypertension Mitral regurgitation New onset of congestive heart failure Paroxysmal atrial fibrillation Family History Family History Father Cancer Mother No problems noted. Family history of problems with anesthesia: No Surgical History Surgical History H/O colonoscopy History of esophagogastroduodenoscopy (EGD) Status post cardiac catheterization Status post mitral valve repair History of Problems with Anesthesia: No Social History Social History Household Members: Family Housing: House Are you a primary campground caretaker to a significant other at home: No Do you presently have visiting nurse or other home services: No Alcohol intake: current Alcohol intake frequency: 3 or more drinks per day Alcohol type: beer Patient Tobacco Use Status: Former Tobacco user Quit Date: 1982 Second Hand Smoke Exposure: No Use of substances other than those prescribed or required for medical reasons: No Are you DNR?: No Advance Directives: No Advance Directives Information Provided: Yes Advance Directives Date on File: 04/11/20 service: Yes Current occupational status: retired Meds Allergies Allergy/AdvReac Type Severity Reaction Status Date / Time Penicillins Allergy Unknown Verified 07/14/22 09:09 Active Medications: Current Medications Lactated Ringer's (Lr) 1,000 mls @ 50 mls/hr IVCONT .Q20H LYDIA Last Admin: 10/22/22 09:44 Dose: 50 mls/hr Sodium Chloride (0.9 % Sodium Chloride Flush 3 Ml Syringe) 3 ml IVFLUSH QSHIFT COUNTS INCLUDE 234 BEDS AT THE [facility] Home Medications Medication Instructions Recorded Confirmed Last Taken Type sucralfate 1 gram tablet 1 g PO QID 08/22/20 10/22/22 08/29/20 History omeprazole 40 mg capsule,delayed 40 mg PO DAILY 09/12/20 10/22/22 07/24/21 History release amiodarone 200 mg tablet 200 mg PO DAILY 10/14/22 10/22/22 10/22/22 History apixaban 5 mg tablet (Eliquis) 5 mg PO BID 10/14/22 10/22/22 10/22/22 History aspirin 81 mg tablet,delayed 81 mg PO DAILY 10/14/22 10/22/22 10/22/22 History release (Adult Aspirin Regimen) Exam Exam Date and Time: October 22, 2022 1035 Height,Weight and Vital Signs: Height 5 ft 8 in Weight 79.379 kg Last Vital Signs Temp 97.0 F 10/22/22 09:23 Pulse 63 10/22/22 09:23 Resp 18 10/22/22 09:23 BP 125/73 10/22/22 09:23 Pulse Ox 97 10/22/22 09:23 O2 Del Method Room Air 10/22/22 09:23 Airway Mallampati Class: III TM Dist: >3cm Neck ROM: Full Denture: Upper and Lower Heart: irreg. Lungs: CTA Assessment and Plan Assessment Anesthesia Assessment: Anesthesia Plan Discussed Final Anesthetic Review Family History of Problems with Anesthesia: No History of Problems with Anesthesia: No ASA Class: III Final Preanesthetic Review: Meds/Allgs Chart Reviewed, Consent Obtained/Reviewed and Anes Risks/Benef Reviewed Anesthetic Plan Anesthetic Plan: GA Disposition: Standard PACU
--- NOTE | 2022-10-22 10:37 | HO.POSTANES ---
Post Anesthesia Evaluation Post Anesthesia Evaluation Date of Service: 10/22/22 Vital Signs: Vital Signs Temp Pulse Resp BP Pulse Ox O2 Del Method O2 Flow Rate 10/22/22 10:29 97 F 61 16 95/59 L 100 Nasal Cannula 4 10/22/22 09:23 97.0 F 63 18 125/73 97 Room Air Anesthesia: General Mental Status: Awake Pain Control: Satisfactory Nausea/Vomiting: None (h) Hydration: Adequate Anesthesia-Related Issues: No Anes. Related Issues
== END 2022-10-22 12:00 | disposition home or self-care (01) ==
PROVIDERS: PCP Internal Medicine; Visit Provider Internal Medicine Cardiovascular Disease
PROC: 5A2204Z Restoration of Cardiac Rhythm, Single (ICD-10-PCS; principal; 2022-10-22 10:00)
DX: I48.19 Other persistent atrial fibrillation (principal); Z79.01 Long term (current) use of anticoagulants; Z88.0 Allergy status to penicillin
CPT/HCPCS: 92960; 93005

== ENCOUNTER → 2022-10-22 08:26 | Outpatient (BNV) | payer MEDICARE, SELFPAY | PROVIDERS: PCP Internal Medicine; Visit Provider Internal Medicine Cardiovascular Disease | DX: I48.19 Other persistent atrial fibrillation (principal) | CPT/HCPCS: 92960 ==

== ENCOUNTER → 2022-10-24 08:30 | Outpatient (REF) | payer MEDICARE, SELFPAY ==
--- NOTE | 2022-10-24 08:33 | CA_ITS ---
Transthoracic Echocardiogram Patient (Last, First, Middle): Ambrocio Askew, Gender: Male Date of : 1950 Age: 72 Procedure Date: 10/24/2022 Procedure Type: Transthoracic Echocardiogram Location: OP Height: 170.18 cm Weight: 79.83 kg BSA: 1.92 m2 Heart Rate: 62 bpm BP: 128 / 68 mmHg Construction Or Leak Gang Laborer: HUMBERTO Referring MD: Francisco Corral MD Laundry Supervisor: Francisco Corral MD Symptoms: Z98.890 - Other specified postprocedural states Study Quality: Adequate w contrast ECG Rhythm: Sinus Conclusions: - 1. Pxjd-[id number]-[id number] LV systolic dysfunction with LVEF of 40 45% 2. Good mitral valve repair 3. Small loculated pericardial effusion over the LV Findings Procedure Information Contrast agent, definity, is being given per protocol without apparent complications. Left Ventricle Normal left ventricular cavity size. There is normal left ventricular wall thickness. The left ventricular systolic function is mild to moderately decreased. The visually estimated ejection fraction is between 40-45%. There is no evidence of regional wall motion abnormalities. There is paradoxical septal motion consistent with post-operative status. Spectral Doppler is indicative of a pseudonormal filling pattern. Right Ventricle Normal right ventricular cavity size. There is severely decreased right ventricular systolic function. Atria The left atrium is likely dilated. Interatrial shunt cannot be excluded. Aortic Valve The aortic valve structure and function is likely normal. There is no aortic valve stenosis. There is no aortic valve regurgitation. Mitral Valve There is mild anterior and severe posterior mitral leaflet thickening. The posterior mitral leaflet is immobile. There is no mitral valve regurgitation. There is no mitral valve stenosis. status post mitral valve repair. Pulmonic Valve The pulmonic valve was not well visualized. Tricuspid Valve Likely normal tricuspid valve structure and function. Tricuspid regurgitation envelope is inadequate for calculation of right ventricular systolic pressure. Normal right atrial pressure. Great Vessels All visible segments of the aorta are normal in size. The pulmonary artery was not well visualized. Venous The inferior vena cava is normal in size and collapses greater than 50% with inspiration. Pericardium/Pleural There is a small loculated pericardial effusion overlying the left ventricle. There is a left sided pleural effusion. Prior Study Comparison Changes noted compared to prior study dated: 04/10/2022. LV systolic function is marginally reduced. Mitral regurgitation has been corrected with mitral valve repair with posterior leaflet resection Measurements 2D Linear Measurements IVSd: 0.88 0.6-0.9/0.6-1.0 cm LVIDd: 5.32 3.9-5.3/4.2-5.9 cm LVIDd Index: 2.77 2.4-3.2/2.2-3.1 cm/m2 LVIDs: 4.34 2.0-3.6 cm LVPWd: 0.81 0.7-1.1 cm LA Diam: 4.20 2.7-3.8/3.0-4.0 cm LAIDs Index: 2.19 1.5-2.3 cm/m2 LV Mass: 201.05 67-162/88-224 g LV Mass Index: 104.71 43-95/49-115 g/m2 LVOT Diam: 2.50 3.0+(-)1.3 cm 2D Systolic Function EF 4C: 48.70 >55% EF 2C: 44.40 >55% EF BiP: 44.90 >55% Mitral Valve MV VTI: 0.37 MV Pk Willie: 1.01 MV Mn Willie: 0.62 MV Pk Grad: 4.00 MV Mn Grad: 2.00 MV Pk E: 0.95 MV PK A: 0.65 MV Decel Time: 308.00 E/A: 1.50 E'Lateral: 7.07 E'Medial: 5.00 E/E' Med: 18.90 E/E' Lat: 13.40 PHT: 90.00 MVA PHT: 2.44 MVA Continuity: 2.08 Decel [place]: 3.07 Aortic Valve AoV Pk Willie: 1.04 AoV Pk Grad: 4.00 CED: 3.95 LVOT LVOT Pk Willie: 0.81 LVOT Mn Willie: 0.55 LVOT VTI: 0.16 LVOT Pk Grad: 3.00 LVOT Mn Grad: 1.00 LVOT Diam: 2.50 LVOT Area: 4.91 Diastolic Function MV Pk E: 0.95 MV Pk A: 0.65 E/A: 1.50 E'Medial: 5.00 E/E' Med: 18.90 E' Laterial: 7.07 E/E' Lat: 13.40 Right Ventricle TAPSE (mm): 5.60 TVS' Willie: 8.30 Tricuspid Valve RA Press: 3.00 Great Vessels Aorta Sinus of Valsalva: 3.00 2.0-3.5 cm Ao Asc: 3.30 2.1-3.4 cm Pulmonary Veins Pulm Vein S/D 1.40 Pulmonary Valve PV Pk Willie: 0.76 Peak PV Grad: 2.00 Updated in Other Vendor System with Status of Final Francisco Corral MD electronically signed on 10/25/2022 1:31:20 PM with status of Final
== END ==
LOC: HO.CARD 08:30
PROVIDERS: PCP Internal Medicine; Visit Provider Internal Medicine Cardiovascular Disease
DX: I34.0 Nonrheumatic mitral (valve) insufficiency (principal); R06.02 Shortness of breath; J90 Pleural effusion, not elsewhere classified
CPT/HCPCS: 93306; Q9957

== ENCOUNTER → 2022-10-24 08:33 | Outpatient (BNV) | payer MEDICARE, SELFPAY | PROVIDERS: PCP Internal Medicine; Visit Provider Internal Medicine Cardiovascular Disease | DX: I34.89 Other nonrheumatic mitral valve disorders (principal); I31.39 Other pericardial effusion (noninflammatory) | CPT/HCPCS: 93306 ==

== ENCOUNTER 2022-10-30 09:44 | Outpatient (REF) | payer MEDICARE, SELFPAY ==
[2022-10-30 13:03] LABS: Alanine Aminotransferase 25 U/L (0-40); Albumin Level 3.9 g/dL (3.5-5.0); Alkaline Phosphatase 75 U/L (39-117); Anion Gap 12 (12-20); Aspartate Amino Transferase 30 U/L (5-37); Bilirubin Total 1.3 mg/dL (0.0-1.0); Blood Urea Nitrogen 10 mg/dL (9-16); Calcium 9.8 mg/dL (8.4-10.2); Carbon Dioxide 29 mmol/L (22-29); Chloride 98 mmol/L (96-108); Estimated Glomerular Filt Rate > 60; Glucose Random 90 mg/dL (60-115); Potassium 4.3 mmol/L (3.3-5.1); Sodium 135 mmol/L (135-145); Total Protein 7.6 g/dL (6.5-8.0)
[2022-10-30 13:12] LABS: Thyroid Stimulating Hormone 2.11 uIU/mL (0.32-4.0)
== END 2022-10-30 09:45 | disposition home or self-care (01) ==
LOC: HO.HMGCLDS 09:44
PROVIDERS: PCP Internal Medicine; Visit Provider Internal Medicine
DX: E87.1 Hypo-osmolality and hyponatremia (principal); I10 Essential (primary) hypertension; I48.91 Unspecified atrial fibrillation; Y71.2 Prosthetic and other implants, materials and accessory cardiovascular devices associated with adverse incidents
CPT/HCPCS: 36415; 80053; 84443

== ENCOUNTER 2022-11-06 07:38 | Outpatient (AMB) | payer MEDICARE, SELFPAY ==
[2022-11-06 08:11] VITALS: BP 140/72; PULSE 56; BMI 25.5
--- NOTE | 2022-11-06 08:11 | MHC.OFFVIS ---
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 He states the following day he noticed that his breathing was much improved. His heart palpitations have resolved. He continues to feel well without any concerning symptoms. His primary complaint is that he wakes up frequently during the night to urinate. No chest discomfort except when he coughs or sneezes. Then he will experience soreness in the chest wall. No palpitations, dizziness, presyncope, syncope, PND, orthopnea or edema. He tolerates normal ADLs without concerning symptoms. No reports of bleeding. He is taking his medications as directed. [facility] Medical History Atrial fibrillation Cardiomyopathy Congestive heart failure GI bleed Heart failure with reduced ejection fraction History of cardioversion Hypertension Mitral regurgitation New onset of congestive heart failure Paroxysmal atrial fibrillation Surgical History H/O colonoscopy History of esophagogastroduodenoscopy (EGD) Status post cardiac catheterization Status post mitral valve repair Family History Father Cancer Mother No problems noted. Social History Household Members: Family Housing: House Are you a primary resident care technician to a significant other at home: No Do you presently have visiting nurse or other home services: No Alcohol intake: current Alcohol intake frequency: 3 or more drinks per day Alcohol type: beer Patient Tobacco Use Status: Former Tobacco user Quit Date: 1982 Second Hand Smoke Exposure: No Advance Directives Date on File: 04/11/20 service: Yes Current occupational status: retired Review of Systems Const Details: waking during night to urinate, every 2 hrs All systems reviewed & are unremarkable except as noted in HPI and below ENT Denies dizziness Card Denies chest pain, Denies chest pain at rest, Denies chest pain with activity, Denies rapid heart rate, Denies pedal edema, Denies edema, Denies leg edema, Denies lightheadedness, Denies palpitations, Denies dyspnea, Denies dyspnea on exertion and Denies orthopnea Resp Denies cough, Denies dyspnea and Denies dyspnea on exertion GI Denies hematochezia and Denies change in stool character Musc Denies abnormal gait, Denies limited range of motion, Denies muscle cramps, Denies muscle weakness, Denies numbness, Denies radiating pain into limb, Denies stiffness and Denies tingling Neuro Denies abnormal gait, Denies dizziness, Denies numbness and Denies tingling Endo Denies palpitations Physical Exam Vital Signs: Last Vital Signs Pulse 56 11/06/22 08:11 BP 140/72 H 11/06/22 08:11 BMI result Body Mass Index 25.5 Const General: cooperative, healthy appearing, comfortable and no acute distress Orientation/consciousness: patient oriented x3 Neck Neck: Yes normal visual inspection Resp Effort & Inspection: normal respiratory effort Auscultation: clear to auscultation bilaterally, no crackles, no rales, no rhonchi and no wheezes Cardio Jugular venous distension: no JVD Rate: regular rate Rhythm: regular rhythm Heart sounds: S1 normal heart sound present, S2 normal heart sound present, no murmurs and no rubs Neuro General: patient oriented x3 Extrem General: Yes normal to inspection Psych Appearance: grossly normal Mental Status: mental status grossly normal Speech and movement: Normal speech and movement present Office Procedures EKG Details: Today, read by me, sinus bradycardia with first-degree AV block, can not rule out anterior infarct, overall no change from EKG done 10/22/2022, QTC 457 milliseconds, heart rate 56 [id number], Complete Assessment & Plan Assessment & Plan (1) Persistent atrial fibrillation: Code(s): I48.19 - Other persistent atrial fibrillation Plan: History of atrial fibrillation, persistent following mitral valve surgery in August. He was experiencing shortness of breath and heart palpitations. He underwent amiodarone load and was on Eliquis for anticoagulation. He had cardioversion on 10/22/2022 with successful conversion to sinus rhythm. EKG done today showing sinus bradycardia, first-degree AV block, unchanged from prior EKG, rate 56. He reports an improvement in his breathing and resolution of heart palpitations. Overall he is pleased with how he is feeling. He tolerates normal ADLs without any difficulty. Discussed need for cardiac rehab and he refuses in spite of encouragement. Instructed to notify this office if he has recurrent symptoms of shortness of breath or heart palpitations. Continue amiodarone 200 mg daily, metoprolol. Recent labs show normal LFT and TSH. Continue Eliquis for anticoagulation. No bleeding issues reported. (2) Status post mitral valve repair: Comment: Status post complex mitral valve reconstruction with posterior leaflet resection, cord replacement as well as mitral annuloplasty ring with left atrial ligation. Code(s): Z98.890 - Other specified postprocedural states Plan: History of mitral valve repair and left atrial appendage ligation 09/03/2022. Echocardiogram prior to surgery showed EF 45-50%. Echocardiogram done on 10/14/2022 shows EF 40-45%, good mitral valve repair, small loculated effusion over the left ventricle. He continues on dual anti-platelet therapy. No bleeding issues reported. Cardiology follow-up in 3 months, sooner if needed to assess for any concerning symptoms. He has declined cardiac rehab. (3) Cardiomyopathy: Code(s): I42.9 - Cardiomyopathy, unspecified Plan: As above, nonischemic cardiomyopathy. history of cardiac catheterization 12/03/2021 showing normal coronary arteries. On examination he has no clinical signs indicating heart failure. Will continue on metoprolol and valsartan neuro hormonal modulation. Signs and symptoms of heart failure reviewed. (4) Congestive heart failure: Code(s): I50.9 - Heart failure, unspecified Plan: Condition stable. Continue low-dose Lasix. (5) Hypertension: Code(s): I10 - Essential (primary) hypertension Plan: Mild elevation 140/72, improved on recheck 136/70. In review of his blood pressures they are variable. At present will continue current medications. If remains mildly elevated at follow-up then valsartan dose can be increased. (6) History of cardioversion: Comment: 04/2020, 10/22/22 Code(s): Z98.890 - Other specified postprocedural states Plan: 10/22/2022 Coding Level of Care Code Est Pt Level 4 (21539) Diagnoses Persistent atrial fibrillation I48.19 Status post mitral valve repair Z98.890 Cardiomyopathy I42.9 Congestive heart failure I50.9 Hypertension I10 History of cardioversion Z98.890 CPT Codes EKG - CPT: 98640-[id number], Complete ([id number]) Time Spent (min) 28 Comment Chart review, documentation, interview, assessment
== END 2022-11-06 08:37 | disposition home or self-care (01) ==
PROVIDERS: PCP Internal Medicine; Referring Provider Internal Medicine; Visit Provider Nurse Practitioner Family
DX: I48.19 Other persistent atrial fibrillation (principal); Z98.890 Other specified postprocedural states; I42.9 Cardiomyopathy, unspecified; I50.9 Heart failure, unspecified; I10 Essential (primary) hypertension
CPT/HCPCS: 93010; 99214

== ENCOUNTER → 2022-11-06 07:38 | Outpatient (BNVA) | payer MEDICARE, SELFPAY | PROVIDERS: PCP Internal Medicine; Referring Provider Internal Medicine; Visit Provider Nurse Practitioner Family | DX: I48.19 Other persistent atrial fibrillation (principal); I42.9 Cardiomyopathy, unspecified; I11.0 Hypertensive heart disease with heart failure; I50.9 Heart failure, unspecified; Z79.01 Long term (current) use of anticoagulants; Z79.899 Other long term (current) drug therapy; Z98.890 Other specified postprocedural states | CPT/HCPCS: 93005; 99212 ==

== ENCOUNTER 2023-01-26 08:52 | Outpatient (AMB) | payer MEDICARE, SELFPAY ==
--- NOTE | 2023-01-26 09:10 | MHC.OFFVIS ---
Intake Vital Signs 01/26/23 09:11 Height 5 ft 8 in Weight 169 lb 12.095 oz BMI 25.8 BP 120/80 Blood Pressure Location Lt brachial Position Sitting Pulse 81 Intake Visit Reasons: 3 month follow up Intake Note: 3 month follow-up with ekg feeling good not sure if he is taking the amiodarone not on list of meds Leak Hunter Required: No Allergies Penicillins Allergy (Verified 11/06/22 08:20) Unknown Medication List - Last Reconciled 01/26/23 by Francisco Corral MD amiodarone 200 mg PO DAILY aspirin (Adult Aspirin Regimen) 81 mg PO DAILY furosemide 20 mg PO DAILY hydrochlorothiazide 25 mg PO DAILY metoprolol tartrate 25 mg PO BID valsartan 80 mg PO DAILY HPI HPI Comments History of Present Illness Details Ambrocio comes for follow-up. He has been doing well from cardiac perspective. He said since doing the cardioversion he is feeling a lot better and his shortness of breath is improved. Denies any orthopnea, PND. The weight is remained stable. No leg edema. Although in notice that he is taking both Lasix and hydrochlorothiazide at this point time. He is also saying that he is not taking amiodarone. He is not able to confirm this but will check home medications and call us back. Denies any chest pain. Denies lightheadedness, syncope. [facility] Medical History (Updated 01/26/23 @ 09:44 by Francisco Corral MD) History of cardioversion GI bleed Congestive heart failure Mitral regurgitation Paroxysmal atrial fibrillation Heart failure with reduced ejection fraction Cardiomyopathy New onset of congestive heart failure Atrial fibrillation Hypertension Surgical History Status post mitral valve repair History of esophagogastroduodenoscopy (EGD) H/O colonoscopy Status post cardiac catheterization Family History Father Cancer Mother No problems noted. Social History Household Members: Family Housing: House Are you a primary care transport nurse to a significant other at home: No Do you presently have visiting nurse or other home services: No Alcohol intake: current Alcohol intake frequency: 3 or more drinks per day Alcohol type: beer Patient Tobacco Use Status: Former Tobacco user Quit Date: 1982 Second Hand Smoke Exposure: No Advance Directives Date on File: 04/11/20 service: Yes Current occupational status: retired Review of Systems Const Denies chills, Denies fatigue, Denies fever(s), Denies frequent falls, Denies weakness, Denies weight gain and Denies weight loss ENT Denies dizziness Card Denies chest pain, Denies leg edema, Denies lightheadedness, Denies palpitations, Denies dyspnea, Denies dyspnea on exertion, Denies orthopnea and Denies other (loss of consciousness) Resp Denies cough, Denies dyspnea and Denies dyspnea on exertion GI Denies hematochezia and Denies change in stool character Musc Denies abnormal gait, Denies muscle weakness, Denies numbness, Denies radiating pain into limb and Denies tingling Neuro Denies abnormal gait, Denies dizziness, Denies frequent falls, Denies numbness, Denies tingling and Denies weakness Endo Denies fatigue and Denies palpitations Physical Exam Vital Signs: Last Vital Signs Pulse 81 01/26/23 09:11 BP 120/80 01/26/23 09:11 BMI result Body Mass Index 25.8 Const General: cooperative, comfortable, no acute distress, alert, awake and tired appearing Nutritional Appearance: overweight Orientation/consciousness: patient oriented x3 Limitations: no limitations Neck Neck: Yes trachea midline, Yes supple and Yes no JVD Resp Effort & Inspection: normal respiratory effort Auscultation: clear to auscultation bilaterally Cardio Jugular venous distension: no JVD Palpation: normal PMI Rate: regular rate Rhythm: abnormal rhythm with ectopic beats Heart sounds: S1 normal heart sound present, S2 normal heart sound present, no click, no gallops, no murmurs and no rubs GI Auscultation: normal bowel sounds Skin General skin exam: no rashes or lesions noted and ecchymosis Neuro General: patient oriented x3 and no focal motor deficits Extrem General: No clubbing, No cyanosis and Yes edema Psych Appearance: grossly normal Office Procedures EKG Details: EKG shows normal sinus rhythm with multifocal PVCs with normal QT interval with low-voltage QRS [id number], Complete Assessment & Plan Assessment & Plan (1) Status post mitral valve repair: Comment: Status post complex mitral valve reconstruction with posterior leaflet resection, cord replacement as well as mitral annuloplasty ring with left atrial ligation. Code(s): Z98.890 - Other specified postprocedural states Plan: Patient status post mitral valve repair for significant mitral regurgitation developed postoperative ttzw-ac-sbyzkhby LV systolic dysfunction. Mitral repair is working well. Continue to monitor by echocardiogram on annual basis. SBE prophylaxis as per ACC/aha guidelines. Currently on Eliquis therapy for anticoagulation and would discontinue aspirin therapy. (2) Paroxysmal atrial fibrillation: Code(s): I48.0 - Paroxysmal atrial fibrillation Plan: Paroxysmal atrial fibrillation maintaining rhythm without amiodarone at this point time heparin Marylu. Patient did not tolerate atrial fibrillation. Will pursue rhythm control approach advised to monitor his heart rate on a regular basis. Advised to call me with recurrent symptoms. Continue full oral anticoagulation with Eliquis as above. Quarterly renal function test should be pursued. (3) Cardiomyopathy: Code(s): I42.9 - Cardiomyopathy, unspecified Plan: Cardiomyopathy with mild heart failure syndrome. Clinically euvolemic and well compensated since conversion to normal rhythm. Clinically NYHA class 1 as per him. Continue low-dose diuretic therapy. Does not require additional hydrochlorothiazide therapy. Daily weight monitoring avoidance of salt loading was discussed. Continue valsartan therapy. Will follow up in the clinic in 6 months time, sooner p.r.n.. Thank you for allowing me to partake in his care Medications: Discontinued valsartan Discontinued Reason: No Longer Medically Relevant 80 mg PO DAILY 90 tabs 1RF Coding Level of Care Code Est Pt Level 4 (32183) Diagnoses Status post mitral valve repair Z98.890 Paroxysmal atrial fibrillation I48.0 Cardiomyopathy I42.9 CPT Codes EKG - CPT: 52358-[id number], Complete ([id number])
[2023-01-26 09:11] VITALS: BP 120/80; PULSE 81; BMI 25.8
== END 2023-01-26 09:42 | disposition home or self-care (01) ==
PROVIDERS: PCP Internal Medicine; Visit Provider Internal Medicine Cardiovascular Disease
DX: Z98.890 Other specified postprocedural states (principal); I48.0 Paroxysmal atrial fibrillation; I42.9 Cardiomyopathy, unspecified
CPT/HCPCS: 93010; 99214

== ENCOUNTER → 2023-01-26 08:52 | Outpatient (BNVA) | payer MEDICARE, SELFPAY | PROVIDERS: PCP Internal Medicine; Visit Provider Internal Medicine Cardiovascular Disease | DX: I49.3 Ventricular premature depolarization (principal); I48.0 Paroxysmal atrial fibrillation; I42.9 Cardiomyopathy, unspecified; Z79.82 Long term (current) use of aspirin; Z98.890 Other specified postprocedural states; Z91.85 Personal history of military service | CPT/HCPCS: 93005; 99212 ==

== ENCOUNTER 2023-02-26 07:33 | Outpatient (REF) | payer MEDICARE, SELFPAY ==
[2023-02-26 11:29] LABS: MANUAL DIFF FLAG NO
[2023-02-26 11:54] LABS: Basophils Percent Auto 0.8 % (0-2); Eosinophils Percent Auto 0.8 % (0-4); Hematocrit 40.5 % (42.0-52.0); Hemoglobin 14.1 g/dl (14.0-18.0); Imm Gran Abs Auto 0.05 X10*3/uL (0.00-0.03); Lymphocytes Absolute Auto 1.4 X10*3/uL (1.2-4.9); Lymphocytes Percent Auto 29.3 % (20-40); Mean Corpuscular HGB Conc 34.8 g/dl (31.0-36.0); Mean Corpuscular Hemoglobin 31.6 pg (27.0-33.0); Mean Corpuscular Volume 90.8 fL (80.0-98.0); Monocytes Absolute Auto 0.5 X10*3/uL (0.1-1.2); Monocytes Percent Auto 10.2 % (2-11); Neutrophils Absolute Auto 2.9 x10*3/uL (2.0-8.3); Neutrophils Percent Auto 57.9 % (45-73); Platelet Count 159 X10*3/uL (160-400); Red Blood Count 4.46 X10*6/uL (4.60-5.80); Red Cell Distribution Width 13.9 % (11.0-16.0); White Blood Count 4.9 X10*3/uL (4.8-10.8)
[2023-02-26 12:22] LABS: Alanine Aminotransferase 12 U/L (0-40); Albumin Level 4.1 g/dL (3.5-5.0); Alkaline Phosphatase 62 U/L (39-117); Anion Gap 14 (12-20); Aspartate Amino Transferase 22 U/L (5-37); Bilirubin Total 1.2 mg/dL (0.0-1.0); Blood Urea Nitrogen 10 mg/dL (9-16); Calcium 9.6 mg/dL (8.4-10.2); Carbon Dioxide 27 mmol/L (22-29); Chloride 96 mmol/L (96-108); Estimated Glomerular Filt Rate > 60; Glucose Random 108 mg/dL (60-115); Potassium 4.6 mmol/L (3.3-5.1); Sodium 132 mmol/L (135-145); Total Protein 7.4 g/dL (6.5-8.0)
== END 2023-02-26 07:34 | disposition home or self-care (01) ==
LOC: HO.HMGCLDS 07:33
PROVIDERS: PCP Internal Medicine; Visit Provider Internal Medicine
DX: E87.1 Hypo-osmolality and hyponatremia (principal); I10 Essential (primary) hypertension; Z79.01 Long term (current) use of anticoagulants
CPT/HCPCS: 36415; 80053; 85025

== ENCOUNTER 2023-05-29 09:29 | Outpatient (REF) | payer MEDICARE, SELFPAY ==
[2023-05-29 10:28] LABS: MANUAL DIFF FLAG NO
[2023-05-29 10:33] LABS: Basophils Percent Auto 0.6 % (0-2); Eosinophils Absolute Auto 0.1 X10*3/uL (0.0-0.4); Eosinophils Percent Auto 0.9 % (0-4); Hematocrit 43.9 % (42.0-52.0); Hemoglobin 16.1 g/dl (14.0-18.0); Imm Gran Abs Auto 0.04 X10*3/uL (0.00-0.03); Imm Gran Pct Auto 0.6 % (0.0-0.4); Lymphocytes Absolute Auto 1.7 X10*3/uL (1.2-4.9); Lymphocytes Percent Auto 26.6 % (20-40); Mean Corpuscular HGB Conc 36.7 g/dl (31.0-36.0); Mean Corpuscular Hemoglobin 33.1 pg (27.0-33.0); Mean Corpuscular Volume 90.1 fL (80.0-98.0); Mean Platelet Volume 8.9 fL (9.4-12.4); Monocytes Absolute Auto 0.7 X10*3/uL (0.1-1.2); Monocytes Percent Auto 10.7 % (2-11); Neutrophils Absolute Auto 3.9 x10*3/uL (2.0-8.3); Neutrophils Percent Auto 60.6 % (45-73); Platelet Count 151 X10*3/uL (160-400); Red Blood Count 4.87 X10*6/uL (4.60-5.80); Red Cell Distribution Width 11.6 % (11.0-16.0); White Blood Count 6.5 X10*3/uL (4.8-10.8)
[2023-05-29 11:11] LABS: Alanine Aminotransferase 17 U/L (0-40); Albumin Level 4.1 g/dL (3.5-5.0); Alkaline Phosphatase 54 U/L (39-117); Anion Gap 13 (12-20); Aspartate Amino Transferase 24 U/L (5-37); Bilirubin Total 1.4 mg/dL (0.0-1.0); Blood Urea Nitrogen 15 mg/dL (9-16); Calcium 9.3 mg/dL (8.4-10.2); Carbon Dioxide 29 mmol/L (22-29); Chloride 94 mmol/L (96-108); Cholesterol 169 mg/dL (<200); Estimated Glomerular Filt Rate > 60; Glucose Random 101 mg/dL (60-115); HDL Cholesterol 60 mg/dL (>40); LDL Cholesterol Calculated 99 mg/dL (<100); Potassium 4.2 mmol/L (3.3-5.1); Sodium 132 mmol/L (135-145); Total Protein 7.6 g/dL (6.5-8.0); Triglycerides 53 mg/dL (<150)
[2023-05-29 11:46] LABS: Prostate Specific Antigen 1.06 ng/mL (<0.05-4.0)
== END 2023-05-29 09:30 | disposition home or self-care (01) ==
LOC: HO.HMGCLDS 09:29
PROVIDERS: PCP Internal Medicine; Visit Provider Internal Medicine
DX: Z12.5 Encounter for screening for malignant neoplasm of prostate (principal); E87.1 Hypo-osmolality and hyponatremia; I10 Essential (primary) hypertension; I48.91 Unspecified atrial fibrillation; Y71.2 Prosthetic and other implants, materials and accessory cardiovascular devices associated with adverse incidents
CPT/HCPCS: 36415; 80053; 80061; 84153; 85025

== ENCOUNTER 2023-07-30 08:40 | Outpatient (AMB) | payer MEDICARE, SELFPAY ==
[2023-07-30 09:11] VITALS: BP 120/80; PULSE 82; BMI 26.8
--- NOTE | 2023-07-30 09:11 | A.OFFVIS_ITS ---
Vital Signs 07/30/23 09:11 Height 5 ft 8 in Weight 176 lb 5.917 oz BMI 26.8 BP 120/80 Blood Pressure Location Lt brachial Position Sitting Pulse 82 Intake Visit Reasons: 6 mth f/up Intake Note: 6 month follow-up with ekg feeling good Res Habilitation Assistant Required: No Allergies Penicillins Allergy (Verified 11/06/22 08:20) Unknown Medication List - Last Reconciled 07/30/23 by Francisco Corral MD apixaban (Eliquis) 5 mg PO BID furosemide 20 mg PO DAILY omeprazole 20 mg PO DAILY valsartan 80 mg PO DAILY HPI Comments Details: Ambrocio comes for follow-up. He said he feels very fine. He denies any e xertional symptoms. Denies any worsening shortness of breath, orthopnea, PND. Able to maintain activity of daily living without any issues. No prolonged palpitations irregular heartbeat. Says drinks about 1 beer occasionally on the weekend while watching gains. No alcohol abuse otherwise. No bleeding issues or neurologic events. Takes his Eliquis regularly. Denies any lightheadedness, syncope. No exertional chest pain. [facility] Medical History (Updated 07/30/23 @ 09:34 by Francisco Corral MD) Persistent atrial fibrillation History of cardioversion GI bleed Congestive heart failure Mitral regurgitation Paroxysmal atrial fibrillation Heart failure with reduced ejection fraction Cardiomyopathy New onset of congestive heart failure Atrial fibrillation Hypertension Surgical History Status post mitral valve repair History of esophagogastroduodenoscopy (EGD) H/O colonoscopy Status post cardiac catheterization Family History Father Cancer Mother No problems noted. Social History Household Members: Family Housing: House Are you a primary care transition mgr to a significant other at home: No Do you presently have visiting nurse or other home services: No Alcohol intake: current Alcohol intake frequency: 3 or more drinks per day Alcohol type: beer Comment: refuses bed alarm Patient Tobacco Use Status: Former Tobacco user Quit Date: 1982 Second Hand Smoke Exposure: No Advance Directives Date on File: 04/11/20 service: Yes Current occupational status: retired Review of Systems Const Denies chills, Denies fatigue, Denies fever(s), Denies frequent falls, Denies weakness, Denies weight gain and Denies weight loss ENT Denies dizziness Card Denies chest pain, Denies leg edema, Denies lightheadedness, Denies palpitations, Denies dyspnea, Denies dyspnea on exertion, Denies orthopnea and Denies other (loss of consciousness) Resp Denies cough, Denies dyspnea and Denies dyspnea on exertion GI Denies hematochezia and Denies change in stool character Musc Denies abnormal gait, Denies muscle weakness, Denies numbness, Denies radiating pain into limb and Denies tingling Neuro Denies abnormal gait, Denies dizziness, Denies frequent falls, Denies numbness, Denies tingling and Denies weakness Endo Denies fatigue and Denies palpitations Physical Exam Vital Signs: Last Vital Signs Pulse 82 07/30/23 09:11 BP 120/80 07/30/23 09:11 BMI result Body Mass Index 26.8 Const General: cooperative, comfortable, no acute distress, alert, awake and tired appearing Nutritional Appearance: overweight Orientation/consciousness: patient oriented x3 Limitations: no limitations Neck Neck: Yes trachea midline, Yes supple and Yes no JVD Resp Effort & Inspection: normal respiratory effort Auscultation: clear to auscultation bilaterally Cardio Jugular venous distension: no JVD Palpation: normal PMI Rate: regular rate Rhythm: abnormal rhythm with ectopic beats Heart sounds: S1 normal heart sound present, S2 normal heart sound present, no click, no gallops, no murmurs and no rubs GI Auscultation: normal bowel sounds Skin General skin exam: no rashes or lesions noted and ecchymosis Neuro General: patient oriented x3 and no focal motor deficits Extrem General: No clubbing, No cyanosis and Yes edema Psych Appearance: grossly normal Office Procedures EKG Details: EKG shows normal sinus rhythm with frequent PVCs at 82 beats per minute otherwise normal EKG 28953-[id number], Complete Assessment & Plan Assessment & Plan (1) Cardiomyopathy: Code(s): I42.9 - Cardiomyopathy, unspecified Category: Medical Plan: Patient with [id number] LV systolic dysfunction consistent with cardiomyopathy which is not and a usual after mitral valve repair for severe mitral regurgitation with known underlying myocardial dysfunction. Clinically without signs or symptoms of heart failure although requires optimization neurohormonal modulation. He is currently on valsartan therapy which I agree with. Tolerating well. I would add Toprol 50 mg to his regimen at nighttime to improve neurohormonal medication regimen and guideline based medical therapy to reduce risk of future development of heart failure. This was discussed with him. He understands agrees. Follow-up echocardiogram in 4 months time. (2) Status post mitral valve repair: Comment: Status post complex mitral valve reconstruction with posterior leaflet resection, cord replacement as well as mitral annuloplasty ring with left atrial ligation. Code(s): Z98.890 - Other specified postprocedural states Category: Surgical Plan: Status post mitral valve reconstruction with posterior leaflet resection for severe mitral regurgitation. He would left atrial appendage ligation as well. Currently doing well with no signs or symptoms of heart failure. Continue full oral anticoagulation with Eliquis. SBE prophylaxis as per ACC/aha guidelines. Follow-up echocardiogram in 4 months time. (3) Paroxysmal atrial fibrillation: Code(s): I48.0 - Paroxysmal atrial fibrillation Category: Medical Plan: Paroxysmal atrial fibrillation currently doing well without recurrent episodes of atrial fibrillation. Status post ablation. Continue to avoid stimulants. Avoid alcohol. Restart metoprolol therapy. Does not require require antiarrhythmic drug therapy at this point time. Continue full oral anticoagulation, currently on apixaban 5 mg b.i.d.. Semi annual renal function test should be pursued. Follow-up Holter monitor in 4 months time. Will follow up in the clinic in 6 months time, sooner p.r.n.. Thank you for allowing me to partake in his care Orders: Orders CA echo transthoracic complete 4 Months Z - Other specified postprocedural states ECG 3 day holter monitor 4 Months I48.19 - Other persistent atrial fibrillation Medications: New metoprolol succinate ER (Toprol XL) 50 mg PO QPM 30 tabs 5RF I48.19 - Other persistent atrial fibrillation Coding Level of Care Code Est Pt Level 4 (33900) Diagnoses Cardiomyopathy I42.9 Status post mitral valve repair Z98.890 Paroxysmal atrial fibrillation I48.0 CPT Codes EKG - CPT: 87262-[id number], Complete ([id number])
== END 2023-07-30 09:33 | disposition home or self-care (01) ==
LOC: HO.HCS 08:40
PROVIDERS: PCP Internal Medicine; Visit Provider Internal Medicine Cardiovascular Disease
DX: I42.9 Cardiomyopathy, unspecified (principal); Z98.890 Other specified postprocedural states; I48.0 Paroxysmal atrial fibrillation
CPT/HCPCS: 93010; 99214

== ENCOUNTER → 2023-07-30 08:40 | Outpatient (BNVA) | payer MEDICARE, SELFPAY | PROVIDERS: PCP Internal Medicine; Visit Provider Internal Medicine Cardiovascular Disease | DX: I42.9 Cardiomyopathy, unspecified (principal); I48.0 Paroxysmal atrial fibrillation; Z98.890 Other specified postprocedural states | CPT/HCPCS: 93005; 99212 ==

== ENCOUNTER 2023-09-17 08:49 | Outpatient (REF) | payer MEDICARE, SELFPAY ==
[2023-09-17 10:09] LABS: MANUAL DIFF FLAG NO
[2023-09-17 10:25] LABS: Basophils Percent Auto 0.6 % (0-2); Eosinophils Absolute Auto 0.1 X10*3/uL (0.0-0.4); Eosinophils Percent Auto 1.6 % (0-4); Hematocrit 40.5 % (42.0-52.0); Hemoglobin 14.6 g/dl (14.0-18.0); Imm Gran Abs Auto 0.05 X10*3/uL (0.00-0.03); Imm Gran Pct Auto 0.8 % (0.0-0.4); Lymphocytes Absolute Auto 1.6 X10*3/uL (1.2-4.9); Lymphocytes Percent Auto 25.3 % (20-40); Mean Corpuscular Hemoglobin 32.8 pg (27.0-33.0); Mean Platelet Volume 9.6 fL (9.4-12.4); Monocytes Absolute Auto 0.7 X10*3/uL (0.1-1.2); Monocytes Percent Auto 10.5 % (2-11); Neutrophils Absolute Auto 3.9 x10*3/uL (2.0-8.3); Neutrophils Percent Auto 61.2 % (45-73); Platelet Count 154 X10*3/uL (160-400); Red Blood Count 4.45 X10*6/uL (4.60-5.80); Red Cell Distribution Width 12.3 % (11.0-16.0); White Blood Count 6.4 X10*3/uL (4.8-10.8)
[2023-09-17 10:56] LABS: Alanine Aminotransferase 17 U/L (0-40); Albumin Level 4.1 g/dL (3.5-5.0); Alkaline Phosphatase 50 U/L (39-117); Anion Gap 12 (12-20); Aspartate Amino Transferase 25 U/L (5-37); Bilirubin Total 1.5 mg/dL (0.0-1.0); Blood Urea Nitrogen 9 mg/dL (9-16); Calcium 9.4 mg/dL (8.4-10.2); Carbon Dioxide 26 mmol/L (22-29); Chloride 98 mmol/L (96-108); Estimated Glomerular Filt Rate > 60; Glucose Random 90 mg/dL (60-115); Potassium 4.3 mmol/L (3.3-5.1); Sodium 132 mmol/L (135-145); Total Protein 7.3 g/dL (6.5-8.0)
== END 2023-09-17 08:50 | disposition home or self-care (01) ==
LOC: HO.HMGCLDS 08:49
PROVIDERS: PCP Internal Medicine; Visit Provider Internal Medicine
DX: Z00.00 Encounter for general adult medical examination without abnormal findings (principal); Z79.01 Long term (current) use of anticoagulants; E78.00 Pure hypercholesterolemia, unspecified; I10 Essential (primary) hypertension; I48.91 Unspecified atrial fibrillation; Y71.2 Prosthetic and other implants, materials and accessory cardiovascular devices associated with adverse incidents
CPT/HCPCS: 36415; 80053; 85025

== ENCOUNTER → 2023-11-30 07:36 | Outpatient (REF) | payer MEDICARE, SELFPAY ==
--- NOTE | 2023-11-30 07:43 | HM_ITS ---
Conclusion: 1. Patient was monitored for total period of 3 days 2. Baseline was normal sinus rhythm with average heart rate of 67 beats per minute 3. Occasional PACs noted without episodes of sustained atrial fibrillation 4. Frequent PVCs noted with total burden of 3.3% with 5 triplets of nonsustained VT, fastest at 170 beats per minute 5. Patient marked the counter 3 times correlating with PVCs with no associated symptoms reported MTDD
--- NOTE | 2023-11-30 07:43 | CA_ITS ---
Transthoracic Echocardiogram Patient (Last, First, Middle): Ambrocio Askew, Gender: Male Date of : 1950 Age: 73 Procedure Date: 11/30/2023 Procedure Type: Transthoracic Echocardiogram Location: OP Height: 172.72 cm Weight: 80.74 kg BSA: 1.95 m2 Heart Rate: bpm BP: 140 / 70 mmHg Supervisor Cutting Department: HERN[facility]N Referring MD: Francisco Corral MD Symptoms: Z98.890 - Other specified postprocedural states Study Quality: Adequate with contrast Conclusions: - The left ventricular systolic function is mildly decreased. The visually estimated ejection fraction is between 40-45%. - s/p mitral valve repair. Normal valvular function. Findings Procedure Information Contrast agent, definity, is being given per protocol without apparent complications. Left Ventricle Mildly increased left ventricular cavity size. There is normal left ventricular wall thickness. The left ventricular systolic function is mildly decreased. The visually estimated ejection fraction is between 40-45%. There is mild global hypokinesis. Diastolic function is indeterminate on the basis of available data. Right Ventricle Normal right ventricular cavity size. There is low normal right ventricular systolic function. Atria Both atria are normal in size. Aortic Valve There is a normal trileaflet aortic valve. There is mild calcification of the aortic valve. There is no aortic valve stenosis. There is trace (trivial) aortic valve regurgitation. Mitral Valve There is no mitral valve regurgitation. There is no mitral valve stenosis. s/p mitral valve repair. Normal valvular function. Pulmonic Valve There is trace pulmonic valve regurgitation. Tricuspid Valve Normal tricuspid valve structure. There is no tricuspid valve regurgitation. Tricuspid regurgitation envelope is inadequate for calculation of right ventricular systolic pressure. Great Vessels The asc aorta is normal in size. Venous The inferior vena cava is normal in size and collapses greater than 50% with inspiration. Pericardium/Pleural There is a trivial pericardial effusion. Prior Study Comparison No significant change compared to prior study dated: 10/24/2022. Measurements 2D Linear Measurements IVSd: 0.80 0.6-0.9/0.6-1.0 cm LVIDd: 5.50 3.9-5.3/4.2-5.9 cm LVIDd Index: 2.82 2.4-3.2/2.2-3.1 cm/m2 LVIDs: 4.36 2.0-3.6 cm LVPWd: 0.98 0.7-1.1 cm LA Diam: 3.80 2.7-3.8/3.0-4.0 cm LAIDs Index: 1.95 1.5-2.3 cm/m2 LV Mass: 228.56 67-162/88-224 g LV Mass Index: 117.21 43-95/49-115 g/m2 LVOT Diam: 2.20 3.0+(-)1.3 cm 2D Systolic Function EF 4C: 41.80 >55% EF 2C: 57.00 >55% EF BiP: 50.30 >55% Mitral Valve MV VTI: 0.46 MV Pk Willie: 1.14 MV Mn Willie: 0.76 MV Pk Grad: 5.00 MV Mn Grad: 3.00 MV Pk E: 1.15 MV PK A: 1.11 MV Decel Time: 232.00 E/A: 1.00 E'Lateral: 5.55 E'Medial: 4.79 E/E' Med: 24.00 E/E' Lat: 20.70 PHT: 68.00 MVA PHT: 3.24 MVA Continuity: 1.72 Decel Pope: 4.95 Aortic Valve AoV Pk Willie: 1.00 AoV Mn Willie: 0.81 AoV VTI: 0.28 AoV Pk Grad: 4.00 Aov Mn Grad: 3.00 CED Cont.VTI: 2.81 LVOT LVOT Pk Willie: 0.80 LVOT Mn Willie: 0.54 LVOT VTI: 0.21 LVOT Pk Grad: 3.00 LVOT Mn Grad: 1.00 LVOT Diam: 2.20 LVOT Area: 3.80 Diastolic Function MV Pk E: 1.15 MV Pk A: 1.11 E/A: 1.00 E'Medial: 4.79 E/E' Med: 24.00 E' Laterial: 5.55 E/E' Lat: 20.70 Right Ventricle TAPSE (mm): 14.10 TVS' Willie: 13.60 Tricuspid Valve RA Press: 3.00 Great Vessels Aorta Sinus of Valsalva: 3.38 2.0-3.[address] Ridge: 2.65 1.7-3.4 cm Ao Asc: 3.20 2.1-3.4 cm Updated in Other Vendor System with Status of Final Juancho Ribera MD electronically signed on 12/01/2023 11:31:26 AM with status of Final
== END ==
LOC: HO.CARD 07:36
PROVIDERS: PCP Internal Medicine; Visit Provider Internal Medicine Cardiovascular Disease
DX: I48.19 Other persistent atrial fibrillation (principal); Z98.890 Other specified postprocedural states
CPT/HCPCS: 93242; 93306; Q9957

== ENCOUNTER → 2023-11-30 07:43 | Outpatient (BNV) | payer MEDICARE, SELFPAY | PROVIDERS: PCP Internal Medicine; Visit Provider Internal Medicine | DX: I49.3 Ventricular premature depolarization (principal); I49.1 Atrial premature depolarization | CPT/HCPCS: 93244; 93306 ==

== ENCOUNTER 2023-12-18 08:47 | Outpatient (REF) | payer MEDICARE, SELFPAY ==
[2023-12-18 10:15] LABS: MANUAL DIFF FLAG NO
[2023-12-18 10:24] LABS: Basophils Absolute Auto 0.1 X10*3/uL (0.0-0.2); Basophils Percent Auto 0.7 % (0-2); Eosinophils Absolute Auto 0.1 X10*3/uL (0.0-0.4); Eosinophils Percent Auto 1.2 % (0-4); Hemoglobin 14.7 g/dl (14.0-18.0); Imm Gran Abs Auto 0.08 X10*3/uL (0.00-0.03); Imm Gran Pct Auto 1.2 % (0.0-0.4); Lymphocytes Absolute Auto 1.7 X10*3/uL (1.2-4.9); Lymphocytes Percent Auto 25.9 % (20-40); Mean Corpuscular HGB Conc 35.9 g/dl (31.0-36.0); Mean Corpuscular Hemoglobin 32.9 pg (27.0-33.0); Mean Corpuscular Volume 91.7 fL (80.0-98.0); Mean Platelet Volume 9.3 fL (9.4-12.4); Monocytes Absolute Auto 0.6 X10*3/uL (0.1-1.2); Neutrophils Absolute Auto 4.1 x10*3/uL (2.0-8.3); Platelet Count 166 X10*3/uL (160-400); Red Blood Count 4.47 X10*6/uL (4.60-5.80); Red Cell Distribution Width 11.7 % (11.0-16.0); White Blood Count 6.7 X10*3/uL (4.8-10.8)
[2023-12-18 11:01] LABS: Alanine Aminotransferase 18 U/L (0-40); Albumin Level 4.1 g/dL (3.5-5.0); Alkaline Phosphatase 51 U/L (39-117); Anion Gap 12 (12-20); Aspartate Amino Transferase 26 U/L (5-37); Bilirubin Total 1.1 mg/dL (0.0-1.0); Blood Urea Nitrogen 9 mg/dL (9-16); Calcium 9.9 mg/dL (8.4-10.2); Carbon Dioxide 30 mmol/L (22-29); Chloride 95 mmol/L (96-108); Estimated Glomerular Filt Rate > 60; Glucose Random 93 mg/dL (60-115); Potassium 4.6 mmol/L (3.3-5.1); Sodium 132 mmol/L (135-145); Total Protein 7.3 g/dL (6.5-8.0)
== END 2023-12-18 08:48 | disposition home or self-care (01) ==
LOC: HO.HMGCLDS 08:47
PROVIDERS: PCP Internal Medicine; Visit Provider Internal Medicine
DX: E87.1 Hypo-osmolality and hyponatremia (principal); I10 Essential (primary) hypertension; I48.91 Unspecified atrial fibrillation; Y71.2 Prosthetic and other implants, materials and accessory cardiovascular devices associated with adverse incidents
CPT/HCPCS: 36415; 80053; 85025

== ENCOUNTER 2024-02-02 08:55 | Outpatient (AMB) | payer MEDICARE, SELFPAY ==
[2024-02-02 09:02] VITALS: BP 136/84; PULSE 74; BMI 27.1
--- NOTE | 2024-02-02 09:02 | A.OFFVIS_ITS ---
Vital Signs 02/02/24 09:02 Height 5 ft 8 in Weight 178 lb 9.191 oz BMI 27.1 BP 136/84 Blood Pressure Location Lt brachial Position Sitting Pulse 74 Intake Visit Reasons: 6m follow up Intake Note: 6 month follow-up feeling good Acoustical Tile Patternmaker Required: No Allergies Penicillins Allergy (Verified 11/06/22 08:20) Unknown Medication List - Last Reconciled 02/02/24 by Francisco Corral MD apixaban (Eliquis) 5 mg PO BID furosemide 20 mg PO DAILY metoprolol succinate ER (Toprol XL) 50 mg PO QPM omeprazole 20 mg PO DAILY valsartan 80 mg PO DAILY HPI Comments Details: Floyd comes for follow-up. He said he is doing extremely well. He said he has been having no symptoms. He said he walks and goes up and down the stairs without any issues. He has no exertional shortness of breath, chest pain. No lightheadedness, syncope. No prolonged palpitation irregular heartbeat. Denies any orthopnea, PND, leg edema. Takes all his medications. He said he does not drink much alcohol except for when he watches football game and has 2 beers. He did not participate in phase 2 cardiac rehabilitation [facility] Medical History Persistent atrial fibrillation History of cardioversion GI bleed Congestive heart failure Mitral regurgitation Paroxysmal atrial fibrillation Heart failure with reduced ejection fraction Cardiomyopathy New onset of congestive heart failure Atrial fibrillation Hypertension Surgical History Status post mitral valve repair History of esophagogastroduodenoscopy (EGD) H/O colonoscopy Status post cardiac catheterization Family History Father Cancer Mother No problems noted. Social History Household Members: Family Housing: House Are you a primary patient care technician instructor to a significant other at home: No Do you presently have visiting nurse or other home services: No Alcohol intake: current Alcohol intake frequency: 3 or more drinks per day Alcohol type: beer Comment: refuses bed alarm Patient Tobacco Use Status: Former Tobacco user Second Hand Smoke Exposure: No Advance Directives Date on File: 02/03/21 service: Yes Current occupational status: retired Review of Systems Const Denies chills, Denies fatigue, Denies fever(s), Denies frequent falls, Denies weakness, Denies weight gain and Denies weight loss ENT Denies dizziness Card Denies chest pain, Denies leg edema, Denies lightheadedness, Denies palpitations, Denies dyspnea, Denies dyspnea on exertion, Denies orthopnea and Denies other (loss of consciousness) Resp Denies cough, Denies dyspnea and Denies dyspnea on exertion GI Denies hematochezia and Denies change in stool character Musc Denies abnormal gait, Denies muscle weakness, Denies numbness, Denies radiating pain into limb and Denies tingling Neuro Denies abnormal gait, Denies dizziness, Denies frequent falls, Denies numbness, Denies tingling and Denies weakness Endo Denies fatigue and Denies palpitations Physical Exam Vital Signs: Last Vital Signs Pulse 74 02/02/24 09:02 BP 136/84 02/02/24 09:02 BMI result Body Mass Index 27.1 Const General: cooperative, comfortable, no acute distress, alert, awake and tired appearing Nutritional Appearance: overweight Orientation/consciousness: patient oriented x3 Limitations: no limitations Neck Neck: Yes trachea midline, Yes supple and Yes no JVD Resp Effort & Inspection: normal respiratory effort Auscultation: clear to auscultation bilaterally Cardio Jugular venous distension: no JVD Palpation: abnormal PMI displaced PMI Rate: regular rate Rhythm: regular rhythm Heart sounds: S1 normal heart sound present, S2 normal heart sound present, no click, no gallops, no murmurs and no rubs GI Auscultation: normal bowel sounds Skin General skin exam: no rashes or lesions noted and ecchymosis Neuro General: patient oriented x3 and no focal motor deficits Extrem General: No clubbing, No cyanosis and Yes edema Psych Appearance: grossly normal Assessment & Plan Assessment & Plan (1) Status post mitral valve repair: Comment: Status post complex mitral valve reconstruction with posterior leaflet resection, cord replacement as well as mitral annuloplasty ring with left atrial ligation. Code(s): Z98.890 - Other specified postprocedural states Category: Surgical Plan: Status post mitral valve repair for severe mitral regurgitation heart failure syndrome. Has noted out push repair reduction LV ejection fraction which is expected. No symptoms related to it. Continue full oral anticoagulation with Eliquis. SBE prophylaxis as per ACC/aha guidelines. Follow-up echocardiogram in 10 months. (2) Cardiomyopathy: Code(s): I42.9 - Cardiomyopathy, unspecified Category: Medical Plan: [id number] LV systolic dysfunction with LVEF of 40-45% with no clinical symptoms of heart failure. Recommend to continue metoprolol and valsartan for neurohormonal modulation. Currently also on low-dose diuretic therapy. Jennyfer nue the same. Daily weight monitoring avoidance of salt loading was discussed. He understands agrees. Avoidance of alcohol was discussed. (3) Paroxysmal atrial fibrillation: Code(s): I48.0 - Paroxysmal atrial fibrillation Category: Medical Plan: Paroxysmal atrial fibrillation, has remained suppressed. Has had no clinical recurrence. No indication for antiarrhythmic drug therapy. Continue metoprolol therapy. Continue full oral anticoagulation, currently on Eliquis 5 mg b.i.d.. Again abstinence from alcohol was discussed. Semi annual renal function test to be pursued. Follow up in the clinic in 10 months time after an echocardiogram. Thank you for allowing me to partake in his care Coding Level of Care Code Est Pt Level 4 (43307) Complex EM visit Add On G2211 Diagnoses Status post mitral valve repair Z98.890 Cardiomyopathy I42.9 Paroxysmal atrial fibrillation I48.0
== END 2024-02-02 09:26 | disposition home or self-care (01) ==
PROVIDERS: PCP Internal Medicine; Visit Provider Internal Medicine Cardiovascular Disease
DX: Z98.890 Other specified postprocedural states (principal); I42.9 Cardiomyopathy, unspecified; I48.0 Paroxysmal atrial fibrillation
CPT/HCPCS: 99214; G2211

== ENCOUNTER → 2024-02-02 08:55 | Outpatient (BNVA) | payer MEDICARE, SELFPAY | PROVIDERS: PCP Internal Medicine; Visit Provider Internal Medicine Cardiovascular Disease | DX: I48.0 Paroxysmal atrial fibrillation (principal); I42.9 Cardiomyopathy, unspecified; F10.90 Alcohol use, unspecified, uncomplicated; Z71.89 Other specified counseling; Z79.01 Long term (current) use of anticoagulants; Z87.891 Personal history of nicotine dependence; Z98.890 Other specified postprocedural states | CPT/HCPCS: 99212 ==

== ENCOUNTER 2024-03-17 08:56 | Outpatient (REF) | payer MEDICARE, SELFPAY ==
--- OUTSIDE RECORDS SUMMARY | 2024-03-17 09:14 | XMS_ITS | Patient Health Record ---
Author Organization [facility] Address [address] [place] [address] Care Team Providers Care Resource Manager Name Role Phone Ira Ramírez Primary Care Provider Bret Isaacs Unavailable [phone] ALLERGIES Allergen (clinical drug ingredient) Drug/Non Drug Allergy documented on EMR Reaction Allergy Type Onset Date Status Penicillin Unknown Drug Allergy Active REASON FOR REFERRAL No Information MEDICATIONS Medication SIG (Take, Route, Frequency, Duration) Notes Start Date End Date Status Sucralfate 1 GM TAKE 1 TABLET BY CALEB TH THREE TIMES DAILY ON AN EMPTY STOMACH BEFORE MEAL(S) AND AT BEDTIME for 30 Active Furosemide 20 MG TAKE 1 TABLET BY CALEB TH ONCE DAILY FOR EDEMA Oral for 30 Active Valsartan 80 MG TAKE 1 TABLET BY CALEB TH ONCE DAILY Oral for 90 Active Omeprazole 40 MG TAKE 1 CAPSULE BY MO UT IN THE MORNING FOR 30 DAYS for 30 Active Metoprolol Tartrate 25 MG 1 tablet with food Orally Twice a day for 30 day(s) Active Ferrous Sulfate 325 (65 Fe) MG 1 tablet Orally Once a day A ctive IMMUNIZATIONS Vaccine Route Administration Date Status Comme nts Influenza Unknown 09/27/2020 Refused SOCIAL HISTORY Tobacco Use: Social History Observation Description Date Details (start date - stop date) Former Smoker NA - NA Sex Assigned At : Social History Observation Description Sex Assigned At Unknown Tobacco Use/Smoking Question Answer Notes Patient is a former smoker How long has it been since you last smoked? > 10 years Alcohol Screen Question Answer Notes Did you have a drink containing alcohol in the p ast year? No Points 0 Interpretation Negative PROBLEMS Problem Type ICD Code Onset Dates Problem Status W/U Status Risk SNOMED Code Notes Problem Microcytic anemia (D50.9) Active confirmed 223171112 Problem Melena (K92.1) Active confirmed 8039632 Problem Iron deficiency anemia due to chronic blood loss (D50.0) Active confirmed 256589649 Problem Angiodysplasia of stomach (K31.819) Active confirmed 105292400 PLAN OF TREATMENT Pending Test Test Name Order Date IRON + IBC (FE) 01/29/2021 IRON + IBC (FE) 09/27/2020 IRON + IBC (FE) 08/23/2020 FERRITIN 08/30/2020 CBC w DIFF 06/25/2020 CBC w DIFF 08/30/2020 CBC w DIFF 01/29/2021 CBC w DIFF 09/27/2020 CBC w DIFF 08/23/2020 IRON PROFILE 08/30/2020 Ferritin 01/29/2021 Ferritin 09/27/2020 Future Test Test Name Order Date UPPER GI ENDOSCOPY 06/25/2020 COLONOSCOPY 06/25/2020 Insurance Providers Payer Name Payer Address Payer Phone Subscriber Number Group Number Insured Name Patient Relationship to Insured Coverage Start Date Coverage End Date [employer] [address] [place] [phone] [phone] [id number] JELENA GAYTAN Self - patient is the insured MEDICARE OF [place] [address] [place] [address] [id number] JELENA GAYTAN Self - patient is the insured MEDICAL (GENERAL) HISTORY Medical History History ICD Code Mitral regurgitation with At aiyana Fibrillation--sees Dr. Corral and cardiology at [facility]--may be having a mitral valve procedure via cardiac cath--still waiting to hear as of the 09/27/2020 OV with me Hypertension GI Bleed in 06/2020 with Iron def anemia--- hospitalized and received transfusions--he was on Xarelto, ibuprofen, and occasional beer at that time Denies OR,DM,CVA,Lung disease,renal dise ase Edema Neg colonoscopy in 07/2020 ex cept for a fibroepithelial poyp at the anorectal junction EGD 07/2020--bleeding gastric angiodysplasia treated with 2 Resolution clips--he was on Xarelto at that time Surgical History Surgery Date(Month/Year)
[2024-03-17 10:13] LABS: MANUAL DIFF FLAG NO
[2024-03-17 10:21] LABS: Basophils Absolute Auto 0.1 X10*3/uL (0.0-0.2); Basophils Percent Auto 0.7 % (0-2); Eosinophils Absolute Auto 0.1 X10*3/uL (0.0-0.4); Eosinophils Percent Auto 1.2 % (0-4); Hematocrit 43.3 % (42.0-52.0); Hemoglobin 15.3 g/dl (14.0-18.0); Imm Gran Abs Auto 0.07 X10*3/uL (0.00-0.03); Imm Gran Pct Auto 0.9 % (0.0-0.4); Lymphocytes Absolute Auto 1.8 X10*3/uL (1.2-4.9); Lymphocytes Percent Auto 23.3 % (20-40); Mean Corpuscular HGB Conc 35.3 g/dl (31.0-36.0); Mean Corpuscular Hemoglobin 32.3 pg (27.0-33.0); Mean Corpuscular Volume 91.5 fL (80.0-98.0); Mean Platelet Volume 9.1 fL (9.4-12.4); Monocytes Absolute Auto 0.7 X10*3/uL (0.1-1.2); Monocytes Percent Auto 8.7 % (2-11); Neutrophils Absolute Auto 4.9 x10*3/uL (2.0-8.3); Neutrophils Percent Auto 65.2 % (45-73); Platelet Count 144 X10*3/uL (160-400); Red Blood Count 4.73 X10*6/uL (4.60-5.80); Red Cell Distribution Width 11.9 % (11.0-16.0); White Blood Count 7.6 X10*3/uL (4.8-10.8)
[2024-03-17 11:30] LABS: Alanine Aminotransferase 15 U/L (0-40); Albumin Level 4.1 g/dL (3.5-5.0); Anion Gap 14 (12-20); Aspartate Amino Transferase 23 U/L (5-37); Bilirubin Total 1.3 mg/dL (0.0-1.0); Blood Urea Nitrogen 15 mg/dL (9-16); Calcium 9.4 mg/dL (8.4-10.2); Carbon Dioxide 30 mmol/L (22-29); Chloride 95 mmol/L (96-108); Estimated Glomerular Filt Rate > 60; Glucose Random 97 mg/dL (60-115); Potassium 4.2 mmol/L (3.3-5.1); Sodium 135 mmol/L (135-145); Total Protein 7.5 g/dL (6.5-8.0)
[2024-03-17 12:26] LABS: Alkaline Phosphatase 46 U/L (39-117)
== END 2024-03-17 08:57 | disposition home or self-care (01) ==
LOC: HO.HMGCLDS 08:56
PROVIDERS: PCP Internal Medicine; Visit Provider Internal Medicine
DX: E87.1 Hypo-osmolality and hyponatremia (principal); I34.0 Nonrheumatic mitral (valve) insufficiency; I48.91 Unspecified atrial fibrillation; Z79.01 Long term (current) use of anticoagulants
CPT/HCPCS: 36415; 80053; 85025

== ENCOUNTER 2024-06-16 09:00 | Outpatient (REF) | payer MEDICARE, SELFPAY ==
--- OUTSIDE RECORDS SUMMARY | 2024-06-16 09:34 | XMS_ITS ---
Author Name [facility] Organization Unknown Care Team Organization Name Specialty Phone Email Start Date End [facility]
[2024-06-16 10:11] LABS: MANUAL DIFF FLAG NO
[2024-06-16 10:15] LABS: Basophils Absolute Auto 0.1 X10*3/uL (0.0-0.2); Basophils Percent Auto 0.7 % (0-2); Eosinophils Absolute Auto 0.1 X10*3/uL (0.0-0.4); Eosinophils Percent Auto 1.1 % (0-4); Hematocrit 41.1 % (42.0-52.0); Hemoglobin 14.7 g/dl (14.0-18.0); Imm Gran Abs Auto 0.05 X10*3/uL (0.00-0.03); Imm Gran Pct Auto 0.7 % (0.0-0.4); Lymphocytes Absolute Auto 1.5 X10*3/uL (1.2-4.9); Lymphocytes Percent Auto 20.3 % (20-40); Mean Corpuscular HGB Conc 35.8 g/dl (31.0-36.0); Mean Corpuscular Hemoglobin 32.5 pg (27.0-33.0); Mean Corpuscular Volume 90.7 fL (80.0-98.0); Mean Platelet Volume 9.3 fL (9.4-12.4); Monocytes Absolute Auto 0.7 X10*3/uL (0.1-1.2); Monocytes Percent Auto 9.3 % (2-11); Neutrophils Absolute Auto 5.1 x10*3/uL (2.0-8.3); Neutrophils Percent Auto 67.9 % (45-73); Platelet Count 147 X10*3/uL (160-400); Red Blood Count 4.53 X10*6/uL (4.60-5.80); Red Cell Distribution Width 12.1 % (11.0-16.0); White Blood Count 7.4 X10*3/uL (4.8-10.8)
[2024-06-16 10:28] LABS: Alanine Aminotransferase 24 U/L (0-40); Albumin Level 4.1 g/dL (3.5-5.0); Alkaline Phosphatase 56 U/L (39-117); Anion Gap 13 (12-20); Aspartate Amino Transferase 35 U/L (5-37); Bilirubin Total 1.4 mg/dL (0.0-1.0); Blood Urea Nitrogen 11 mg/dL (9-16); Calcium 9.5 mg/dL (8.4-10.2); Carbon Dioxide 29 mmol/L (22-29); Chloride 94 mmol/L (96-108); Cholesterol 133 mg/dL (<200); Estimated Glomerular Filt Rate > 60; Glucose Random 105 mg/dL (60-115); HDL Cholesterol 61 mg/dL (>40); LDL Cholesterol Calculated 63 mg/dL (<100); Potassium 4.8 mmol/L (3.3-5.1); Sodium 131 mmol/L (135-145); Total Protein 7.3 g/dL (6.5-8.0); Triglycerides 45 mg/dL (<150)
[2024-06-16 10:47] LABS: Prostate Specific Antigen 1.17 ng/mL (<0.05-4.0)
== END 2024-06-16 09:01 | disposition home or self-care (01) ==
LOC: HO.HMGCLDS 09:00
PROVIDERS: PCP Internal Medicine; Visit Provider Internal Medicine
DX: I10 Essential (primary) hypertension (principal); Z12.5 Encounter for screening for malignant neoplasm of prostate; I34.0 Nonrheumatic mitral (valve) insufficiency; I48.91 Unspecified atrial fibrillation; I50.43 Acute on chronic combined systolic (congestive) and diastolic (congestive) heart failure; Z79.01 Long term (current) use of anticoagulants
CPT/HCPCS: 36415; 80053; 80061; 84153; 85025

== ENCOUNTER → 2024-10-28 08:17 | Outpatient (REF) | payer MEDICARE, SELFPAY ==
--- NOTE | 2024-10-28 08:24 | CA_ITS ---
Transthoracic Echocardiogram Patient (Last, First, Middle): Ambrocio Askew, Gender: M Date of : 1950 Age: 74 Procedure Date: 10/28/2024 Procedure Type: Transthoracic Echocardiogram Location: OP Height: 172.72 cm Weight: 81.65 kg BSA: 1.95 m2 Heart Rate: bpm BP: 118 / 70 mmHg Rv Repair Technician: TO Referring MD: Francisco Corral MD Insurance Verification Clerk: Francisco Corral MD Symptoms: s/p MV repair, Cardiomyopathy Study Quality: Fair/contrast ECG Rhythm: Sinus Conclusions: - 1. [id number] LV systolic dysfunction with LVEF of 40-45% 2. Mildly enlarged left atrium 3. Repaired posterior mitral valve leaflet for mitral valve prolapse with good repair 4. Normal cardiac valvular Dopplers 5. No gross pericardial effusion Findings Procedure Information Contrast agent, definity, is being given per protocol without apparent complications. Left Ventricle Normal left ventricular cavity size. There is normal left ventricular wall thickness. The left ventricular systolic function is mild to moderately decreased. The visually estimated ejection fraction is between 40-45%. There is paradoxical septal motion consistent with post-operative status. Spectral Doppler is indicative of an impaired relaxation filling pattern. Right Ventricle Normal right ventricular cavity size and systolic function. Atria The left atrium is mildly dilated. There is no evidence of interatrial shunt. The right atrium is normal in size. Aortic Valve Normal aortic valve structure and function. There is no aortic valve stenosis. There is no aortic valve regurgitation. Mitral Valve There is mild anterior and severe posterior mitral leaflet thickening. The posterior mitral leaflet is immobile. There is no mitral valve regurgitation. There is no mitral valve stenosis. Pulmonic Valve The pulmonic valve is likely normal. There is trace to mild pulmonic valve regurgitation. Tricuspid Valve Normal tricuspid valve structure. Tricuspid regurgitation envelope is inadequate for calculation of right ventricular systolic pressure. Normal right atrial pressure. Great Vessels All visible segments of the aorta are normal in size. The pulmonary artery was not well visualized. Venous The inferior vena cava is normal in size and collapses greater than 50% with inspiration. Pericardium/Pleural There is no evidence of pericardial effusion. Prior Study Comparison No significant change compared to prior study dated: 11/30/2023. Measurements 2D Linear Measurements IVSd: 1.01 0.6-0.9/0.6-1.0 cm LVIDd: 5.30 3.9-5.3/4.2-5.9 cm LVIDd Index: 2.72 2.4-3.2/2.2-3.1 cm/m2 LVIDs: 4.32 2.0-3.6 cm LVPWd: 0.80 0.7-1.1 cm LA Diam: 3.90 2.7-3.8/3.0-4.0 cm LAIDs Index: 2.00 1.5-2.3 cm/m2 LV Mass: 219.44 67-162/88-224 g LV Mass Index: 112.54 43-95/49-115 g/m2 LVOT Diam: 2.30 3.0+(-)1.3 cm 2D Systolic Function EF 4C: 44.60 >55% EF 2C: 48.30 >55% EF BiP: 45.80 >55% Mitral Valve MV VTI: 0.33 MV Pk Willie: 1.14 MV Mn Willie: 0.79 MV Pk Grad: 5.00 MV Mn Grad: 3.00 MV Pk E: 0.82 MV PK A: 1.03 MV Decel Time: 254.00 E/A: 0.80 E'Lateral: 4.79 E'Medial: 4.57 E/E' Med: 18.00 E/E' Lat: 17.20 PHT: 74.00 MVA PHT: 2.97 MVA Continuity: 2.30 Decel [place]: 3.24 Aortic Valve AoV Pk Willie: 1.03 AoV Mn Willie: 0.69 AoV VTI: 0.22 AoV Pk Grad: 4.00 Aov Mn Grad: 2.00 CED Cont.VTI: 3.50 LVOT LVOT Pk Willie: 0.78 LVOT Mn Willie: 0.51 LVOT VTI: 0.18 LVOT Pk Grad: 2.00 LVOT Mn Grad: 1.00 LVOT Diam: 2.30 LVOT Area: 4.15 Diastolic Function MV Pk E: 0.82 MV Pk A: 1.03 E/A: 0.80 E'Medial: 4.57 E/E' Med: 18.00 E' Laterial: 4.79 E/E' Lat: 17.20 Right Ventricle TAPSE (mm): 16.60 TVS' Willie: 12.60 Tricuspid Valve RA Press: 3.00 Great Vessels Aorta Sinus of Valsalva: 3.42 2.0-3.[address] [place]: 2.68 1.7-3.4 cm Ao Asc: 3.40 2.1-3.4 cm Updated in Other Vendor System with Status of Final Francisco Corral MD electronically signed on 10/29/2024 11:27:07 AM with status of Final
--- OUTSIDE RECORDS SUMMARY | 2024-10-28 08:25 | XMS_ITS ---
Author Name [facility] Organization Unknown Care Team Organization Name Specialty Phone Email Start Date End [facility]
== END ==
LOC: HO.CARD 08:17
PROVIDERS: PCP Internal Medicine; Visit Provider Internal Medicine Cardiovascular Disease
DX: Z98.890 Other specified postprocedural states (principal)
CPT/HCPCS: 93306; Q9957

== ENCOUNTER → 2024-10-28 08:24 | Outpatient (BNV) | payer MEDICARE, SELFPAY | PROVIDERS: PCP Internal Medicine; Visit Provider Internal Medicine Cardiovascular Disease | DX: I34.89 Other nonrheumatic mitral valve disorders (principal); I51.89 Other ill-defined heart diseases; Z95.2 Presence of prosthetic heart valve; I37.1 Nonrheumatic pulmonary valve insufficiency | CPT/HCPCS: 93306 ==

== ENCOUNTER 2024-11-23 08:45 | Outpatient (AMB) | payer MEDICARE, SELFPAY ==
--- NOTE | 2024-11-23 09:00 | MHC.OFFVIS ---
Vital Signs 11/23/24 09:05 Height 5 ft 8 in Weight 169 lb 12.095 oz BMI 25.8 BP 130/80 Blood Pressure Location Lt brachial Pulse 72 Pulse Source Monitor Intake Visit Reasons: 10 m follow up/echo Intake Note: 10 Month f/u / Echo with ekg feeling good would like to talk about cost of eliquis Quality Project Manager Required: No Allergies Penicillins Allergy (Verified 11/06/22 08:20) Unknown Medication List - Last Reconciled 11/23/24 by Francisco Corral MD apixaban (Eliquis) 5 mg PO BID furosemide 20 mg PO DAILY metoprolol succinate ER (Toprol XL) 50 mg PO QPM omeprazole 20 mg PO DAILY valsartan 80 mg PO DAILY HPI Comments Details: Floyd comes for follow-up. Overall he has been doing well. His most recent echocardiogram shows stable but reduced LV EF of 40-45% with good repair of the mitral valve. He has no progressive symptoms of congestive heart failure. Denies any orthopnea, PND, leg edema. No worsening shortness of breath. Remains active. Takes all his medications. He is only concern is the cost associated with Eliquis use. He denies any prolonged palpitation irregular heartbeat. No lightheadedness, syncope. Takes all his medications. [facility] Medical History (Updated 11/23/24 @ 09:29 by Francisco Corral MD) Heart failure with reduced ejection fraction Persistent atrial fibrillation History of cardioversion GI bleed Mitral regurgitation Paroxysmal atrial fibrillation Cardiomyopathy New onset of congestive heart failure Atrial fibrillation Hypertension Surgical History Status post mitral valve repair History of esophagogastroduodenoscopy (EGD) H/O colonoscopy Status post cardiac catheterization Family History Father Cancer Mother No problems noted. Social History Household Members: Family Housing: House Are you a primary personal care aide to a significant other at home: No Do you presently have visiting nurse or other home services: No Alcohol intake: current Alcohol intake frequency: 3 or more drinks per day Alcohol type: beer Comment: refuses bed alarm Patient Tobacco Use Status: Former Tobacco user Second Hand Smoke Exposure: No Advance Directives Date on File: 04/11/20 service: Yes Current occupational status: retired Review of Systems Const Denies chills, Denies fatigue, Denies fever(s), Denies frequent falls, Denies weakness, Denies weight gain and Denies weight loss ENT Denies dizziness Card Denies chest pain, Denies leg edema, Denies lightheadedness, Denies palpitations, Denies dyspnea, Denies dyspnea on exertion, Denies orthopnea and Denies other (loss of consciousness) Resp Denies cough, Denies dyspnea and Denies dyspnea on exertion GI Denies hematochezia and Denies change in stool character Musc Denies abnormal gait, Denies muscle weakness, Denies numbness, Denies radiating pain into limb and Denies tingling Neuro Denies abnormal gait, Denies dizziness, Denies frequent falls, Denies numbness, Denies tingling and Denies weakness Endo Denies fatigue and Denies palpitations Physical Exam Vital Signs: Last Vital Signs Pulse 72 11/23/24 09:05 BP 130/80 11/23/24 09:05 BMI result Body Mass Index 25.8 Const General: cooperative, comfortable, no acute distress, alert, awake and tired appearing Nutritional Appearance: overweight Orientation/consciousness: patient oriented x3 Limitations: no limitations Neck Neck: Yes trachea midline, Yes supple and Yes no JVD Resp Effort & Inspection: normal respiratory effort Auscultation: clear to auscultation bilaterally Cardio Jugular venous distension: no JVD Palpation: abnormal PMI displaced PMI Rate: regular rate Rhythm: abnormal rhythm with ectopic beats Heart sounds: S1 normal heart sound present, S2 normal heart sound present, no click, no gallops, no murmurs and no rubs GI Auscultation: normal bowel sounds Skin General skin exam: no rashes or lesions noted and ecchymosis Neuro General: patient oriented x3 and no focal motor deficits Extrem General: No clubbing, No cyanosis and Yes edema Psych Appearance: grossly normal Office Procedures EKG Details: EKG is normal sinus rhythm with frequent PVCs with low-voltage QRS with poor R-wave progression [id number], Complete Assessment & Plan Assessment & Plan (1) Heart failure with reduced ejection fraction: Code(s): I50.20 - Unspecified systolic (congestive) heart failure Category: Medical Plan: Heart failure with reduced ejection fraction with [id number] LV systolic dysfunction which has remained stable. Clinically euvolemic and well compensated with NYHA class 1 symptoms. No progressive symptoms. Currently on low-dose diuretic therapy which will continue. Had not tolerated Entresto in the past due to low blood pressure. Currently on metoprolol and valsartan for neurohormonal modulation tolerating well with no low blood pressure symptoms. Signs and symptoms of progressive heart failure was were discussed. Daily weight monitoring avoidance salt loading was discussed. Additional diuretics as need be. Follow-up echocardiogram in 1 year's time. (2) Paroxysmal atrial fibrillation: Code(s): I48.0 - Paroxysmal atrial fibrillation Category: Medical Plan: Paroxysmal atrial fibrillation without any obvious clinical recurrence. Doing well with rhythm control approach will continue pursue rhythm control approach. Continue metoprolol therapy. Avoidance of stimulants was discussed. Continue full oral anticoagulation, currently on Eliquis 5 mg b.i.d.. Semi annual renal function test should be pursued. He is going to look into [facility] benefits for his prescription cost. (3) Status post mitral valve repair: Comment: Status post complex mitral valve reconstruction with posterior leaflet resection, cord replacement as well as mitral annuloplasty ring with left atrial ligation. Code(s): Z98.890 - Other specified postprocedural states Category: Surgical Plan: Status post mitral valve repair for severe mitral regurgitation with significant posterior mitral valve prolapse. This is doing well clinically. SBE prophylaxis as per ACC/[place] guidelines. Continue full oral anticoagulation, currently on Eliquis. Will follow up in the clinic in 1 year's time, sooner PRN. Thank you for allowing me to partake in his care Orders: Orders CA echo transthoracic complete 1 Year I42.9 - Cardiomyopathy, unspecified Coding Level of Care Code Est Pt Level 4 (38621) Complex EM visit Add On G2211 Diagnoses Heart failure with reduced ejection fraction I50.20 Paroxysmal atrial fibrillation I48.0 Status post mitral valve repair Z98.890 CPT Codes EKG - CPT: 42048-[id number], Complete ([id number])
[2024-11-23 09:05] VITALS: BP 130/80; PULSE 72; BMI 25.8
== END 2024-11-23 09:28 | disposition home or self-care (01) ==
LOC: HO.HCS 08:45
PROVIDERS: PCP Internal Medicine; Visit Provider Internal Medicine Cardiovascular Disease
DX: I50.20 Unspecified systolic (congestive) heart failure (principal); I48.0 Paroxysmal atrial fibrillation; Z98.890 Other specified postprocedural states
CPT/HCPCS: 93010; 99214; G2211

== ENCOUNTER → 2024-11-23 08:45 | Outpatient (BNVA) | payer MEDICARE, SELFPAY | PROVIDERS: PCP Internal Medicine; Visit Provider Internal Medicine Cardiovascular Disease | DX: I12.9 Hypertensive chronic kidney disease with stage 1 through stage 4 chronic kidney disease, or unspecified chronic kidney disease (principal); I50.20 Unspecified systolic (congestive) heart failure; I48.0 Paroxysmal atrial fibrillation; R94.31 Abnormal electrocardiogram [ECG] [EKG]; I49.3 Ventricular premature depolarization; Z98.890 Other specified postprocedural states; Z79.01 Long term (current) use of anticoagulants | CPT/HCPCS: 93005; 99212 ==

== ENCOUNTER 2025-01-19 09:06 | Outpatient (REF) | payer MEDICARE, SELFPAY ==
[2025-01-19 10:25] LABS: MANUAL DIFF FLAG NO
[2025-01-19 10:41] LABS: Hematocrit 41.2 % (42.0-52.0); Hemoglobin 14.6 g/dl (14.0-18.0); Imm Gran Abs Auto 0.08 X10*3/uL (0.00-0.03); Imm Gran Pct Auto 1.1 % (0.0-0.4); Lymphocytes Absolute Auto 1.5 X10*3/uL (1.2-4.9); Mean Corpuscular HGB Conc 35.4 g/dl (31.0-36.0); Mean Corpuscular Hemoglobin 33.0 pg (27.0-33.0); Mean Corpuscular Volume 93.0 fL (80.0-98.0); NRBC Abs Auto 0.000 X10*3/uL (0.0-0.012); NRBC Pct Auto 0.0 /100WBC (0.0-0.2); Platelet Count 183 X10*3/uL (160-400); Red Blood Count 4.43 X10*6/uL (4.60-5.80); White Blood Count 7.3 X10*3/uL (4.8-10.8)
[2025-01-19 11:57] LABS: Alanine Aminotransferase 28 U/L (0-40); Albumin Level 4.2 g/dL (3.5-5.0); Alkaline Phosphatase 60 U/L (39-117); Anion Gap 12 (12-20); Aspartate Amino Transferase 34 U/L (5-37); Blood Urea Nitrogen 14 mg/dL (9-16); Calcium 9.4 mg/dL (8.4-10.2); Carbon Dioxide 30 mmol/L (22-29); Chloride 94 mmol/L (96-108); Estimated Glomerular Filt Rate 59; Potassium 4.6 mmol/L (3.3-5.1); Sodium 131 mmol/L (135-145); Total Protein 7.5 g/dL (6.5-8.0)
== END 2025-01-19 09:07 | disposition home or self-care (01) ==
LOC: HO.HMGCLDS 09:06
PROVIDERS: PCP Internal Medicine; Visit Provider Internal Medicine
DX: E87.1 Hypo-osmolality and hyponatremia (principal); I48.91 Unspecified atrial fibrillation; D69.6 Thrombocytopenia, unspecified; I50.43 Acute on chronic combined systolic (congestive) and diastolic (congestive) heart failure
CPT/HCPCS: 36415; 80053; 85025